=== PATIENT | female | born 2005 | race Caucasian/White ===

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

== ENCOUNTER 2023-02-16 00:11 | Emergency (ER) | payer OTHER, SELFPAY ==
[2023-02-16 00:14] VITALS: BP 124/70; PULSE 67; RESP 16; TEMP 36.7; O2SAT 100
--- NOTE | 2023-02-16 00:43 | XR_ITS ---
The [address] [address] Patient Name: RUPAL PARK MRN: [id number] date: 2005 Sex: F Assigned Patient Location: ER Current Patient Location: ED.MAIN Accession/Order Number: [id number] Exam Date: 02/16/2023 01:00 Report Date: 02/16/2023 01:24 At the request of: ANSLEY MARKER Procedure: XR hand LT min 3V EXAM: XR hand LT min 3V HISTORY: fall, thumb pain COMPARISON: None. TECHNIQUE: 3 views of the left hand were obtained. FINDINGS: No acute fracture or dislocation is seen. The joint spaces are preserved. XR/XR hand LT min 3V IMPRESSION: 1. No acute fracture or dislocation of the left hand is seen. If pain persists, repeat radiographs are recommended in 7-10 days. Electronically authenticated by: Bettye NIETO Date: 02/16/2023 01:24
--- NOTE | 2023-02-16 00:54 | ED_ITS ---
HPI - Extremity Injury (Upper) General Chief Complaint: Extremity Injury, Upper Stated Complaint: LT HAND INJURY Time Seen by Provider: 02/16/23 00:26 Source: patient Mode of arrival: walk-in History of Present Illness HPI narrative: This 17-year-old female who is 17 weeks and right-hand dominant presents for evaluation of left thumb pain. The patient thinks that she broke her left thumb. She tripped earlier today and fell onto her left hand. She states she has broken his thumb several times in the past. She has pain from the thenar eminence of the distal end of the thumb. She denies any numbness or tingling. She has some superficial abrasions on her 3rd and 4th fingers. She denies falling on her abdomen. She has no abdominal pain or vaginal bleeding. She has no neck or back pain. She took Tylenol prior to coming to the emergency department. Related Data Home Medications Medication Instructions Recorded Confirmed buspirone 5 mg tablet mg 02/16/23 cephalexin 500 mg capsule mg 02/16/23 dextroamphetamine-amphetamine 20 02/16/23 mg tablet folic acid 1 mg tablet 02/16/23 Allergies Allergy/AdvReac Type Severity Reaction Status Date / Time No Known Drug Allergies Allergy Verified 02/16/23 00:16 Review of Systems ROS Status of ROS 10 or more systems reviewed and unremarkable except as noted in history and below [facility] Social History Smoking status: Never smoker Exam Narrative Exam Narrative: Nurses note and vital signs reviewed and patient is not hypoxic. General: Thin female resting currently on the stretcher, no respiratory distress Skin: Superficial abrasions to the distal end of the left 4th and 5th fingers, no active bleeding Head: Normocephalic, atraumatic Eye: Normal conjunctiva, vision is grossly intact Neck: non-tender Cardiovascular: Regular Rate and Rhythm Respiratory: Patient is in no distress, no accessory muscle use, lungs are clear to auscultation, no wheezing, rales or rhonchi Back: non-tender, no CVA tenderness bilaterally to percussion. GI: Normal bowel sounds, no tenderness to palpation, no masses appreciated. No rebound, guarding, or rigidity noted. Musculoskeletal: Mild tenderness to the left thumb/thenar eminence to the MCP joint. Patient is able to flex and extend at the MCP and DIP joint. There is no abrasion or notable ecchymosis. Patient is able to approximate thumb and all fingers. There are superficial abrasions to the left 3rd and 4th fingers distally with no active bleeding and no bony tenderness or deformity noted Neurological: A&O x4, normal speech Psychiatric: Cooperative Constitutional Vital Signs, click to edit/add: Last Vital Signs Temp 98.0 F 02/16/23 00:14 Pulse 67 02/16/23 00:14 Resp 16 02/16/23 00:14 BP 124/70 02/16/23 00:14 Pulse Ox 100 02/16/23 00:14 O2 Del Method Room Air 02/16/23 00:14 Course Vital Signs Vital signs: Vital Signs Temperature 98.0 F 02/16/23 00:14 Pulse Rate 67 02/16/23 00:14 Respiratory Rate 16 02/16/23 00:14 Blood Pressure 124/70 02/16/23 00:14 Pulse Oximetry 100 02/16/23 00:14 Oxygen Delivery Method Room Air 02/16/23 00:14 Temperature 98.0 F 02/16/23 00:14 Pulse Rate 67 02/16/23 00:14 Respiratory Rate 16 02/16/23 00:14 Blood Pressure 124/70 02/16/23 00:14 Pulse Oximetry 100 02/16/23 00:14 Oxygen Delivery Method Room Air 02/16/23 00:14 MDM - Extremity Injury (Upper) MDM Narrative Medical decision making narrative: This 17-year-old female who is 17 weeks , who is right-hand dominant presents after she fell on the pavement outside onto her left hand. She has pain and tenderness in the left thumb with no bony deformity. She also has some superficial abrasions on her 3rd and 4th fingers. X-ray of the hand does not show any fracture or dislocation or foreign body. She had taken Tylenol prior to arrival was given an ice pack. She'll be placed in a thumb splint for comfort and discharged home at this time. She was encouraged to use Tylenol as needed for pain and ice. She did not fall on her abdomen has no re lated complaints. Discharge Plan Discharge Chief Complaint: Extremity Injury, Upper Clinical Impression: , Left thumb sprain Time of Disposition Decision: 01:49 Condition: Good Prescriptions / Home Meds: No Action buspirone 5 mg tablet cephalexin 500 mg capsule dextroamphetamine-amphetamine 20 mg tablet folic acid 1 mg tablet Instructions: Finger Sprain (ED) Additional Instructions: Use splint as needed for comfort. Use ice and tylenol as needed for pain. Stand Alone Forms: Portal Instructions Referrals: Physician,Non-Staff, MD [Primary Care Provider] - 1 week
== END 2023-02-16 02:00 | disposition home or self-care (01) ==
PROVIDERS: Emergency Provider Emergency Medicine
DX: O9A.212 Injury, poisoning and certain other consequences of external causes complicating pregnancy, second trimester (principal); S63.602A Unspecified sprain of left thumb, initial encounter; Z3A.17 17 weeks gestation of pregnancy; Z79.899 Other long term (current) drug therapy; W01.10XA Fall on same level from slipping, tripping and stumbling with subsequent striking against unspecified object, initial encounter
CPT/HCPCS: 73130; 99283

== ENCOUNTER 2023-09-30 14:39 | Emergency (ER) | payer OTHER, SELFPAY ==
--- OUTSIDE RECORDS SUMMARY | 2023-09-30 14:45 | XMS_ITS | CCD ---
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 Pending Sale To [facility] Comment on above: Order Comment: Name Collection Type:: Clean-Voided Midstream Performed By: #### A MNISURE-, CUU, ADDONUAPLUS, OBUDS #### [place] [address] [place] Color (U) Red Critically abnormal Yellow The Pending Sale To [facility] Comment on above: Order Comment: Name Collection Type:: Clean-Voided Midstream Performed By: #### A MNISURE-, CUU, ADDONUAPLUS, OBUDS #### [place] [address] [place] Glucose Ql (U) Normal Normal Normal The Pending Sale To [facility] Comment on above: Order Comment: Name Collection Type:: Clean-Voided Midstream Performed By: #### A MNISURE-, CUU, ADDONUAPLUS, OBUDS #### [place] [address] [place] Hyaline Casts,Urine 1-2 High 0-1 The Pending Sale To [facility] Comment on above: Order Comment: Name Collection Type:: Clean-Voided Midstream Performed By: #### A MNISURE-, CUU, ADDONUAPLUS, OBUDS #### [place] [address] [place] Ketones Ql (U) Negative Normal Negative The Pending Sale To [facility] Comment on above: Order Comment: Name Collection Type:: Clean-Voided Midstream Performed By: #### A MNISURE-, CUU, ADDONUAPLUS, OBUDS #### [place] [address] [place] Leukocyte esterase Test strip Ql (U) 3+ High Negative The Pending Sale To [facility] Comment on above: Order Comment: Name Collection Type:: Clean-Voided Midstream Performed By: #### A MNISURE-, CUU, ADDONUAPLUS, OBUDS #### [place] [address] [place] Nitrite,Urine Negative Normal Negative The Pending Sale To [facility] Comment on above: Order Comment: Name Collection Type:: Clean-Voided Midstream Performed By: #### A MNISURE-, CUU, ADDONUAPLUS, OBUDS #### [place] [id number] [place] Occult Blood,Urine 3+ High Negative The Pending Sale To [facility] Comment on above: Order Comment: Name Collection Type:: Clean-Voided Midstream Result Comment: PERF ORMED BY: [place] [address] PATHOLOGIST SOLE BUFFER JAYDON WEBER M.D. Performed By: #### A MNISURE-, CUU, ADDONUAPLUS, OBUDS #### [address] Other Casts,Urine None Seen Normal None Seen The Pending Sale To [facility] Comment on above: Order Comment: Name Collection Type:: Clean-Voided Midstream Result Comment: PERF ORMED BY: [place] [address] PATHOLOGIST SOLE BUFFER JAYDON WEBER M.D. Performed By: #### A MNISURE-, CUU, ADDONUAPLUS, OBUDS #### [address] pH (U) 6.5 [pH] Normal 5.0-9.0 The Pending Sale To [facility] Comment on above: Order Comment: Name Collection Type:: Clean-Voided Midstream Performed By: #### A MNISURE-, CUU, ADDONUAPLUS, OBUDS #### [address] Protein (U) [Mass/Vol] 300 mg/dL High Negative [facility] Comment on above: Order Comment: Name Collection Type:: Clean-Voided Midstream Performed By: #### A MNISURE-, CUU, ADDONUAPLUS, OBUDS #### [address] RBC,Urine Innumerable High 0-4 The Pending Sale To [facility] Comment on above: Order Comment: Name Collection Type:: Clean-Voided Midstream Performed By: #### A MNISURE-, CUU, ADDONUAPLUS, OBUDS #### [address] Specificy [place],Urine 1.028 Normal 1.001-1.030 The Pending Sale To [facility] Comment on above: Order Comment: Name Collection Type:: Clean-Voided Midstream Performed By: #### A MNISURE-, CUU, ADDONUAPLUS, OBUDS #### [address] Squamous Epithelial Cell,Urine 0-1 Normal 0-2 The Pending Sale To [facility] Comment on above: Order Comment: Name Collection Type:: Clean-Voided Midstream Performed By: #### A MNISURE-, CUU, ADDONUAPLUS, OBUDS #### [address] Urobilinogen,Urine Normal Normal Normal The Pending Sale To [facility] Comment on above: Order Comment: Name Collection Type:: Clean-Voided Midstream Performed By: #### A MNISURE-, CUU, ADDONUAPLUS, OBUDS #### [address] WBC,Urine Innumerable High 0-4 The Pending Sale To [facility] Comment on above: Order Comment: Name Collection Type:: Clean-Voided Midstream Performed By: #### A MNISURE-, CUU, ADDONUAPLUS, OBUDS #### [address] Erythrocyte distribution wid th [Ratio] by Automated countOrdered By: Akin Lopez on 07-28-2023 Erythrocyte distribution width (RBC) [Ratio] 14.1 % Normal 11.9-15.3 [facility] Comment on above: Performed By: #### A MNISURE-, CUU, ADDONUAPLUS, OBUDS #### [address] Erythrocytes [#/volume] in B lood by Automated countOrdered By: Akin Lopez on 07-28-2023 RBC (Bld) [#/Vol] 3.65 10*6/uL Normal 3.60-5.00 [facility] Comment on above: Performed By: #### A MNISURE-, CUU, ADDONUAPLUS, OBUDS #### [facility] [address] Glucose [Mass/volume] in Ser um or PlasmaOrdered By: Akin Lopez on 07-28-2023 Glucose [Mass/Vol] 86 mg/dL Normal 70-100 [facility] Comment on above: ADA recommended refe rence rangeRandom Glucose Reference Range is dependent on time and content of last meal. Glucose of more than 200 mg/dL in a nonstressed, ambulatory subject supports the diagnosis of Diabetes Mellitus. Result Comment: [place] om Glucose Reference Range is dependent on time and content of last meal. Glucose of more than 200 mg/dL in a nonstressed, ambulatory subject supports the diagnosis of Diabetes Mellitus. ADA recommended reference range Performed By: #### A MNISURE-, CUU, ADDONUAPLUS, OBUDS #### [address] Hematocrit [Volume Fraction] of Blood by Automated countOrdered By: Akin Lopez on 07-28-2023 Hematocrit (Bld) [Volume fraction] 31.8 % Low 34.0-46.4 [facility] Comment on above: Performed By: #### A MNISURE-, CUU, ADDONUAPLUS, OBUDS #### [address] Hemoglobin [Mass/volume] in BloodOrdered By: Akin Lopez on 07-28-2023 Hemoglobin (Bld) [Mass/Vol] 10.6 g/dL Low 11.8-15.4 [facility] Comment on above: Performed By: #### A MNISURE-, CUU, ADDONUAPLUS, OBUDS #### [place] [address] [place] Hepatic Panelon 07-28-2023 Albumin [Mass/Vol] 3.2 g/dL Low 3.5-5.7 The Pending Sale To [facility] Comment on above: Performed By: #### A MNISURE-, CUU, ADDONUAPLUS, OBUDS #### [place] [address] [place] Bilirubin,Indirect 0.2 mg/dL Normal The Pending Sale To [facility] Comment on above: Performed By: #### A MICHELLERE- CUUCARMEN OBUDS #### [facility] [address] [place] [address] Bilirubin.indirect [Mass/Vol] 0.00 mg/dL Low 0.03-0.18 The Pending Sale To [facility] Comment on above: Result Comment: If t he DBIL is less than 0.1, IBIL is not able to be calculated. Performed By: #### A MNISURE-, CUU, ADDONROHITH, OBUDS #### [facility] [address] [place] [address] Ketones Auto test strip (U) [Mass/Vol]Ordered By: Akin Lopez on 07-28-2023 Ketones (U) [Mass/Vol] Negative Negative [facility] Leukocytes [#/volume] correc oren for nucleated erythrocytes in Blood by Automated counOrdered By: Akin Lopez on 07-28-2023 WBC corrected for nucl RBC Auto (Bld) [#/Vol] 9.5 10*3/uL 3.8-11.6 [facility] Leukocytes [#/volume] in Blo od by Automated countOrdered By: Akin Lopez on 07-28-2023 WBC (Bld) [#/Vol] 9.5 10*3/uL Normal 3.8-11.6 [facility] Comment on above: Performed By: #### A MICHELLERE- CUU, CARMEN, OBUDS #### [facility] [address] [place] [address] Lipase [Enzymatic activity/v olume] in Serum or PlasmaOrdered By: Akin Lopez on 07-28-2023 Lipase [Catalytic activity/Vol] 11.0 U/L Normal 11.0-82.0 [facility] Comment on above: Result Comment: PERF ORMED BY: [place] [address] PATHOLOGIST SOLE BUFFER JIANLAN SUN M.D. Performed By: #### A MNISURE-, CUU, ADDONUAPLUS, OBUDS #### [address] Lymphocytes [#/volume] in Bl ood by Automated countOrdered By: Akin Lopez on 07-28-2023 Lymphocytes (Bld) [#/Vol] 2.3 10*3/uL Normal 1.00-4.8 [facility] Comment on above: Performed By: #### A MNISURE-, CUU, ADDONUAPLUS, OBUDS #### [address] Lymphocytes/100 leukocytes i n Blood by Automated countOrdered By: Akin Lopez on 07-28-2023 Lymphocytes/100 WBC (Bld) 23.7 % Normal . [facility] Comment on above: Performed By: #### A MNISURE-, CUU, ADDONUAPLUS, OBUDS #### [address] MCH [Entitic mass] by Automa oren countOrdered By: Akin Lopez on 07-28-2023 MCH (RBC) [Entitic mass] 28.9 pg Normal 24.7-34.3 [facility] Comment on above: Performed By: #### A MNISURE-, CUU, ADDONUAPLUS, OBUDS #### [address] MCHC Auto (RBC) [Mass/Vol]Or dered By: Akin Lopez on 07-28-2023 MCHC (RBC) [Mass/Vol] 33.2 g/dL 32.0-35.0 [facility] MCV [Entitic volume] by Auto mated countOrdered By: Akin Lopez on 07-28-2023 MCV (RBC) [Entitic vol] 87.2 fL Normal 80-100 [facility] Comment on above: Performed By: #### A MNISURE-, CUU, ADDONUAPLUS, OBUDS #### [address] Monocyte distribution width [Entitic volume] in Blood by AutomatedOrdered By: Akin Lopez on 07-28-2023 Monocyte distribution width Auto (Bld) [Entitic vol] 17.82 % 0.00-20.00 [facility] Neutrophils [#/volume] in Bl ood by Automated countOrdered By: Akin Lopez on 07-28-2023 Neutrophils (Bld) [#/Vol] 6.4 10*3/uL Normal 1.8-7.7 [facility] Comment on above: Performed By: #### A MNISURE-, CUU, ADDONUAPLUS, OBUDS #### [facility] [address] Nitrite Test strip Ql (U)Ord ered By: Akin Lopez on 07-28-2023 Nitrite Ql (U) Negative Negative [facility] No Panel InformationOrdered By: Akin Lopez on 07-28-2023 Estimated GFR (CKD-EPI) > 60.0 mL/Min [facility] Creatinine Clearance (Chem 171.94 [facility] Nucleated erythrocytes [Pres ence] in Blood by Automated countOrdered By: Akin Lopez on 07-28-2023 Nucleated RBC Auto Ql (Bld) 0.0 /100{WBC} 0-0.5 [facility] Platelet mean volume [Entiti c volume] in Blood by Automated countOrdered By: Akin Lopez on 07-28-2023 Platelet mean volume (Bld) [Entitic vol] 10.1 fL Normal 6.3-10.7 [facility] Comment on above: Performed By: #### A MNISURE-, CUU, ADDONUAPLUS, OBUDS #### [facility] [address] [place] [address] [place] Platelets [#/volume] in Bloo d by Automated countOrdered By: Akin Lopez on 07-28-2023 Platelets (Bld) [#/Vol] 206 10*3/uL Normal 150-450 [facility] Comment on above: Performed By: #### A MNISURE-, CUU, ADDONUAPLUS, OBUDS #### [facility] [address] Potassium [Moles/volume] in Serum or PlasmaOrdered By: Akin Lopez on 07-28-2023 Potassium [Moles/Vol] 3.8 mmol/L Normal 3.5-5.1 [facility] Comment on above: Performed By: #### A NORMA ORO ADDONUAPLUS OBUDS #### [facility] [address] Protein Auto test strip (U) [Mass/Vol]Ordered By: Akin Lopez on 07-28-2023 Protein (U) [Mass/Vol] 300 mg/dL Negative [facility] Protein [Mass/volume] in Ser um or PlasmaOrdered By: Akin Lopez on 07-28-2023 Protein [Mass/Vol] 6.1 g/dL Low 6.4-8.9 [facility] Comment on above: Performed By: #### A HUY OROUCARMEN OBUDS #### [facility] [address] [place] [address] Serum globulin measurement b y calculation (mass/volume)Ordered By: Akin Lopez on 07-28-2023 Globulin (S) [Mass/Vol] 2.9 g/dL Normal [facility] Comment on above: Performed By: #### A NORMA ORO ADDONUAPLUS OBUDS #### [facility] [address] [place] [address] Serum or plasma albumin/glob ulin mass ratioOrdered By: Akin Lopez on 07-28-2023 Albumin/Globulin [Mass ratio] 1.1 {ratio} Normal [facility] Comment on above: Performed By: #### A NORMA ORO ADDONUAPLUS OBUDS #### [facility] [address] [place] [address] Serum or plasma anion gap de terminationOrdered By: Akin Lopez on 07-28-2023 Anion gap [Moles/Vol] 2.2 mmol/L Low 6.0-15.0 [facility] Comment on above: Performed By: #### A NORMA ORO ADDONUAPLUS, OBUDS #### [facility] [address] [place] [address] Serum or plasma non-glucuron idated bilirubin measurement (mass/volume)Ordered By: Akin Lopez on 07-28-2023 Bilirubin.indirect [Mass/Vol] 0.2 mg/dL [facility] Sodium [Moles/volume] in Ser um or PlasmaOrdered By: Akin Lopez on 07-28-2023 Sodium [Moles/Vol] 137 mmol/L Normal 136-145 [facility] Comment on above: Performed By: #### A NORMA ORO ADDONUAPLUS OBUDS #### [facility] [address] [place] [address] Specific gravity Auto test s trip (U) [Rel density]Ordered By: Akin Lopez on 07-28-2023 Specific gravity (U) [Rel density] 1.028 1.001-1.030 [facility] Squamous epithelial cells de tection in urine sediment by light microscopyOrdered By: Akin Lopez on 07-28-2023 Epithelial cells.squamous LM Ql (Urine sed) 0-1 [HPF] 0-2 [facility] Urea nitrogen [Mass/volume] in Serum or PlasmaOrdered By: Akin Lopez on 07-28-2023 Urea nitrogen [Mass/Vol] 13 mg/dL Normal 7-25 [facility] Comment on above: Performed By: #### A NORMA ORO ADDONUAPLUS OBUDS #### [facility] [address] [place] [address] Urine Cultureon 07-28-2023 Bacteria identified Cx Nom (U) <9,000 colonies/ml mixed bacterial skin contaminants 2 Days PERFORMED BY: [place] [address] PATHOLOGIST SOLE BUFFER JAYDON WEBER M.D. Normal The Pending Sale To [facility] Comment on above: Performed By: #### A NORMA ORO, ADDONUAPLUS, OBUDS #### [facility] [address] Urine bacteria detection by automated methodOrdered By: Akin Lopez on 07-28-2023 Bacteria Auto Ql (U) None seen None Seen [facility] Urine clarity by refractomet ry automatedOrdered By: Akin Lopez on 07-28-2023 Clarity Refractometry automated (U) Cloudy Clear [facility] Urine glucose measurement by automated test strip (mass/volume)Ordered By: Akin Lopez on 07-28-2023 Glucose Auto test strip (U) [Mass/Vol] Normal mg/dL Normal [facility] Urine hemoglobin detection b y automated test stripOrdered By: Akin Lopez on 07-28-2023 Hemoglobin Auto test strip Ql (U) 3+ Negative [facility] Urine leukocyte esterase det ection by automated test stripOrdered By: Akin Lopez on 07-28-2023 Leukocyte esterase Auto test strip Ql (U) 3+ Negative [facility] Urobilinogen Auto test strip (U) [Mass/Vol]Ordered By: Akin Lopez on 07-28-2023 Urobilinogen (U) [Mass/Vol] Normal mg/dL Normal [facility] pH Auto test strip (U)Ordere d By: Akin Lopez on 07-28-2023 pH (U) 6.5 [pH] 5.0-9.0 [facility] Basophils Auto (Bld) [#/Vol] Ordered By: Chuck Monroe on 07-24-2023 Basophils (Bld) [#/Vol] 0.0 10*3/uL 0.0-0.2 [facility] Basophils/100 WBC Auto (Bld) Ordered By: Chuck Monroe on 07-24-2023 Basophils/100 WBC (Bld) 0.3 % . [facility] Eosinophils Auto (Bld) [#/Vo l]Ordered By: Chuck Monroe on 07-24-2023 Eosinophils (Bld) [#/Vol] 0.1 10*3/uL 0.0-0.45 [facility] Eosinophils/100 WBC Auto (Bl d)Ordered By: Chuck Monroe on 07-24-2023 Eosinophils/100 WBC (Bld) 0.6 % . [facility] Erythrocyte distribution wid th Auto (RBC) [Ratio]Ordered By: Chuck Monroe on 07-24-2023 Erythrocyte distribution width (RBC) [Ratio] 14.2 % 11.9-15.3 [facility] Hematocrit Auto (Bld) [Volum e fraction]Ordered By: Chuck Monroe on 07-24-2023 Hematocrit (Bld) [Volume fraction] 34.4 % 34.0-46.4 [facility] Hemoglobin [Mass/volume] in BloodOrdered By: Chuck Monroe on 07-24-2023 Hemoglobin (Bld) [Mass/Vol] 11.4 g/dL 11.8-15.4 [facility] Leukocytes [#/volume] correc oren for nucleated erythrocytes in Blood by Automated counOrdered By: Chuck Monroe on 07-24-2023 WBC corrected for nucl RBC Auto (Bld) [#/Vol] 12.4 10*3/uL 3.8-11.6 [facility] Lymphocytes Auto (Bld) [#/Vo l]Ordered By: Chuck Monroe on 07-24-2023 Lymphocytes (Bld) [#/Vol] 2.7 10*3/uL 1.00-4.8 [facility] Lymphocytes/100 WBC Auto (Bl d)Ordered By: Chuck Monroe on 07-24-2023 Lymphocytes/100 WBC (Bld) 21.6 % . [facility] MCH Auto (RBC) [Entitic mass ]Ordered By: Chuck Monroe on 07-24-2023 MCH (RBC) [Entitic mass] 28.8 pg 24.7-34.3 [facility] MCHC Auto (RBC) [Mass/Vol]Or dered By: Chuck Monroe on 07-24-2023 MCHC (RBC) [Mass/Vol] 33.3 g/dL 32.0-35.0 [facility] MCV Auto (RBC) [Entitic vol] Ordered By: Chuck Monroe on 07-24-2023 MCV (RBC) [Entitic vol] 86.6 fL 80-100 [facility] Monocytes Auto (Bld) [#/Vol] Ordered By: Chuck Monroe on 07-24-2023 Monocytes (Bld) [#/Vol] 0.8 10*3/uL 0.0-0.8 [facility] Monocytes/100 WBC Auto (Bld) Ordered By: Chuck Monroe on 07-24-2023 Monocytes/100 WBC (Bld) 6.5 % . [facility] Neutrophils Auto (Bld) [#/Vo l]Ordered By: Chuck Monroe on 07-24-2023 Neutrophils (Bld) [#/Vol] 8.8 10*3/uL 1.8-7.7 [facility] Neutrophils/100 WBC Auto (Bl d)Ordered By: Chuck Monroe on 07-24-2023 Neutrophils/100 WBC (Bld) 71.0 % . [facility] Nucleated erythrocytes [Pres ence] in Blood by Automated countOrdered By: Chuck Monroe on 07-24-2023 Nucleated RBC Auto Ql (Bld) 0.1 /100{WBC} 0-0.5 [facility] Platelet adequacy [Presence] in Blood by Light microscopyOrdered By: Chuck Monroe on 07-24-2023 Platelets LM Ql (Bld) Normal Normal [facility] Platelet mean volume Auto (B ld) [Entitic vol]Ordered By: Chuck Monroe on 07-24-2023 Platelet mean volume (Bld) [Entitic vol] 11.3 fL 6.3-10.7 [facility] Platelet morphology finding [Identifier] in BloodOrdered By: Chuck Monroe on 07-24-2023 Platelet morphology finding Nom (Bld) N/A [facility] Platelets Auto (Bld) [#/Vol] Ordered By: Chuck Monroe on 07-24-2023 Platelets (Bld) [#/Vol] 169 10*3/uL 150-450 [facility] Platelets Large [Presence] i n Blood by Light microscopyOrdered By: Chuck Monroe on 07-24-2023 Platelets Large LM Ql (Bld) Slight [facility] RBC Auto (Bld) [#/Vol]Ordere d By: Chuck Monroe on 07-24-2023 RBC (Bld) [#/Vol] 3.97 10*6/uL 3.60-5.00 [facility] RBC morphologyOrdered By: Kamilah Monroe on 07-24-2023 RBC morphology finding Nom (Bld) Normal Normal [facility] Scan and CBCon 07-24-2023 Basophils (Bld) [#/Vol] 0.0 10*3/uL Normal 0.0-0.2 The Pending Sale To [facility] Comment on above: Order Comment: Comme nt Draw at 630 am Result Comment: PERF ORMED BY: [place] [address] PATHOLOGIST SOLE BUFFER JAYDON WEBER M.D. Performed By: #### O BUDS, CUU, ADDONUAPLUS #### [address] Basophils/100 WBC (Bld) 0.3 % Normal . T norma Pending Sale To [facility] Comment on above: Order Comment: Comme nt Draw at 630 am Performed By: #### O BUDS, CUU, ADDONUAPLUS #### [address] Eosinophils (Bld) [#/Vol] 0.1 10*3/uL Normal 0.0-0.45 The Pending Sale To [facility] Comment on above: Order Comment: Comme nt Draw at 630 am Performed By: #### O BUDS, CUU, ADDONUAPLUS #### [address] Eosinophils/100 WBC (Bld) 0.6 % Normal . The Pending Sale To [facility] Comment on above: Order Comment: Comme nt Draw at 630 am Performed By: #### O BUDS, CUU, ADDONUAPLUS #### [address] Erythrocyte distribution width (RBC) [Ratio] 14.2 % Normal 11.9-15.3 The Pending Sale To [facility] Comment on above: Order Comment: Comme nt Draw at 630 am Performed By: #### O BUDS, CUU, ADDONUAPLUS #### [address] Hematocrit (Bld) [Volume fraction] 34.4 % Normal 34.0-46.4 The Pending Sale To [facility] Comment on above: Order Comment: Comme nt Draw at 630 am Performed By: #### O BUDS, CUU, ADDONUAPLUS #### [address] Hemoglobin (Bld) [Mass/Vol] 11.4 g/dL Low 11.8-15.4 The Pending Sale To [facility] Comment on above: Order Comment: Comme nt Draw at 630 am Performed By: #### O BUDS, CUU, ADDONUAPLUS #### [address] Large Platelets Slight Normal The Pending Sale To [facility] Comment on above: Order Comment: Comme nt Draw at 630 am Result Comment: PERF ORMED BY: [place] [address] PATHOLOGIST SOLE BUFFER JAYDON WEBER M.D. Performed By: #### O BUDS, CUU, ADDONUAPLUS #### [address] Lymphocytes (Bld) [#/Vol] 2.7 10*3/uL Normal 1.00-4.8 The Pending Sale To [facility] Comment on above: Order Comment: Comme nt Draw at 630 am Performed By: #### O BUDS, CUU, ADDONUAPLUS #### [address] Lymphocytes/100 WBC (Bld) 21.6 % Normal . The Pending Sale To [facility] Comment on above: Order Comment: Comme nt Draw at 630 am Performed By: #### O BUDS, CUU, ADDONUAPLUS #### [address] MCH (RBC) [Entitic mass] 28.8 pg Normal 24.7-34.3 The Pending Sale To [facility] Comment on above: Order Comment: Comme nt Draw at 630 am Performed By: #### O BUDS, CUU, ADDONUAPLUS #### [address] MCV (RBC) [Entitic vol] 86.6 fL Normal 80-100 T he Pending Sale To [facility] Comment on above: Order Comment: Comme nt Draw at 630 am Performed By: #### O BUDS, CUU, ADDONUAPLUS #### [address] Mean Corpuscular HGB Conc 33.3 g/dL Normal 32.0-35.0 The Pending Sale To [facility] Comment on above: Order Comment: Comme nt Draw at 630 am Performed By: #### O BUDS, CUU, ADDONUAPLUS #### [address] Monocytes (Bld) [#/Vol] 0.8 10*3/uL Normal 0.0-0.8 The Pending Sale To [facility] Comment on above: Order Comment: Comme nt Draw at 630 am Performed By: #### O BUDS, CUU, ADDONUAPLUS #### [address] Monocytes/100 WBC (Bld) 6.5 % Normal . T he Pending Sale To [facility] Comment on above: Order Comment: Comme nt Draw at 630 am Performed By: #### O BUDS, CUU, ADDONUAPLUS #### [place] [address] [place] Neutrophils (Bld) [#/Vol] 8.8 10*3/uL High 1.8-7.7 The Pending Sale To [facility] Comment on above: Order Comment: Comme nt Draw at 630 am Performed By: #### O BUDS, CUU, ADDONUAPLUS #### [address] Neutrophils/100 WBC (Bld) 71.0 % Normal . The Pending Sale To [facility] Comment on above: Order Comment: Comme nt Draw at 630 am Performed By: #### O BUDS, CUU, ADDONUAPLUS #### [address] NRBC% 0.1 /100{WBC} Normal 0-0.5 The Pending Sale To [facility] Comment on above: Order Comment: Comme nt Draw at 630 am Performed By: #### O BUDS, CUU, ADDONUAPLUS #### [address] Platelet Estimate Normal Normal Normal The Pending Sale To [facility] Comment on above: Order Comment: Comme nt Draw at 630 am Performed By: #### O BUDS, CUU, ADDONUAPLUS #### [address] Platelet mean volume (Bld) [Entitic vol] 11.3 fL High 6.3-10.7 The Pending [facility] Comment on above: Order Comment: Comme nt Draw at 630 am Performed By: #### O BUDS, CUU, ADDONUAPLUS #### [address] Platelets (Bld) [#/Vol] 169 10*3/uL Normal 150-450 The Pending [facility] Comment on above: Order Comment: Comme nt Draw at 630 am Performed By: #### O BUDS, CUU, ADDONUAPLUS #### [address] RBC (Bld) [#/Vol] 3.97 10*6/uL Normal 3.60-5.00 The Pending [facility] Comment on above: Order Comment: Comme nt Draw at 630 am Performed By: #### O BUDS, CUU, ADDONUAPLUS #### [address] RBC morphology finding Nom (Bld) Normal Normal Normal The Pending [facility] Comment on above: Order Comment: Comme nt Draw at 630 am Performed By: #### O BUDS, CUU, ADDONUAPLUS #### [address] WBC (Bld) [#/Vol] 12.4 10*3/uL High 3.8-11.6 The Pending [facility] Comment on above: Order Comment: Comme nt Draw at 630 am Performed By: #### O BUDS, CUU, ADDONUAPLUS #### [address] WBC Auto (Bld) [#/Vol]Ordere d By: Chuck Monroe on 07-24-2023 WBC (Bld) [#/Vol] 12.4 10*3/uL 3.8-11.6 [facility] ABO/RH Typeon 07-23-2023 ABO and Rh group Nom (Bld) Blood group A Rh(D) positive Normal The Pending [facility] Comment on above: Result Comment: PERF ORMED BY: [facility] [address] [place] [address] PATHOLOGIST SOLE BUFFER JAYDON WEBER M.D. Amphetamine Screen Ql (U)Ord ered By: JITENDRA Bales on 07-23-2023 Amphetamines Ql (U) Negative Negative [facility] Automated erythrocytes count in urine sediment (number/area)Ordered By: JITENDRA Bales on 07-23-2023 RBC Auto (Urine sed) [#/Area] 1-2 [HPF] 0-4 [facility] Automated leukocytes count i n urine sediment (number/area)Ordered By: JITENDRA Bales on 07-23-2023 WBC Auto (Urine sed) [#/Area] 5-9 [HPF] 0-4 [facility] Barbiturates [Presence] in U rine by Screen methodOrdered By: JITENDRA Bales on 07-23-2023 Barbiturates Screen Ql (U) Negative Negative [facility] Benzodiazepines Screen Ql (U )Ordered By: JITENDRA Bales on 07-23-2023 Benzodiazepines Ql (U) Negative Negative [facility] Benzoylecgonine [Presence] i n Urine by Screen methodOrdered By: JITENDRA Bales on 07-23-2023 Benzoylecgonine Screen Ql (U) Negative Negative [facility] Bilirubin Test strip Ql (U)O rdered By: JITENDRA Bales on 07-23-2023 Bilirubin Ql (U) Negative Negative [facility] Color Auto (U)Ordered By: MD HOWARD Bales on 07-23-2023 Color (U) Yellow Yellow [facility] Complete Blood Count Auto Di ffon 07-23-2023 Basophils (Bld) [#/Vol] 0.1 10*3/uL Normal 0.0-0.2 The Pending [facility] Comment on above: Result Comment: PERF ORMED BY: [place] [address] PATHOLOGIST SOLE BUFFER JAYDON WEBER M.D. Performed By: #### C USTB #### [address] Basophils/100 WBC (Bld) 1.0 % Normal . T he Pending Sale To [facility] Comment on above: Performed By: #### C USTB #### [address] Eosinophils (Bld) [#/Vol] 0.1 10*3/uL Normal 0.0-0.45 The Pending [facility] Comment on above: Performed By: #### C USTB #### [address] Eosinophils/100 WBC (Bld) 1.1 % Normal . The Pending [facility] Comment on above: Performed By: #### C USTB #### [address] Erythrocyte distribution width (RBC) [Ratio] 14.2 % Normal 11.9-15.3 The Pending [facility] Comment on above: Performed By: #### C USTB #### [address] Hematocrit (Bld) [Volume fraction] 37.9 % Normal 34.0-46.4 The Pending [facility] Comment on above: Performed By: #### C USTB #### [address] Hemoglobin (Bld) [Mass/Vol] 12.6 g/dL Normal 11.8-15.4 The Pending [facility] Comment on above: Performed By: #### C USTB #### [address] Lymphocytes (Bld) [#/Vol] 2.8 10*3/uL Normal 1.00-4.8 The Pending [facility] Comment on above: Performed By: #### C USTB #### [address] Lymphocytes/100 WBC (Bld) 26.1 % Normal . The Pending [facility] Comment on above: Performed By: #### C USTB #### [address] MCH (RBC) [Entitic mass] 28.6 pg Normal 24.7-34.3 The Pending [facility] Comment on above: Performed By: #### C USTB #### [address] MCV (RBC) [Entitic vol] 86.5 fL Normal 80-100 [facility] Comment on above: Performed By: #### C USTB #### [address] Mean Corpuscular HGB Conc 33.1 g/dL Normal 32.0-35.0 The Pending [facility] Comment on above: Performed By: #### C USTB #### [address] Monocytes (Bld) [#/Vol] 0.7 10*3/uL Normal 0.0-0.8 The Pending [facility] Comment on above: Performed By: #### C USTB #### [address] Monocytes/100 WBC (Bld) 6.8 % Normal . [facility] Comment on above: Performed By: #### C USTB #### [address] Neutrophils (Bld) [#/Vol] 7.0 10*3/uL Normal 1.8-7.7 The Pending [facility] Comment on above: Performed By: #### C USTB #### [address] Neutrophils/100 WBC (Bld) 65.0 % Normal . The Pending [facility] Comment on above: Performed By: #### C USTB #### [address] NRBC% 0.1 /100{WBC} Normal 0-0.5 The Pending [facility] Comment on above: Performed By: #### C USTB #### [facility] [address] Platelet mean volume (Bld) [Entitic vol] 11.2 fL High 6.3-10.7 The Pending [facility] To [facility] Comment on above: Performed By: #### C USTB #### [facility] [address] [place] [address] [place] Platelets (Bld) [#/Vol] 203 10*3/uL Normal 150-450 The Pending [facility] To [facility] Comment on above: Performed By: #### C USTB #### [address] RBC (Bld) [#/Vol] 4.39 10*6/uL Normal 3.60-5.00 The Pending [facility] To [facility] Comment on above: Performed By: #### C USTB #### [address] WBC (Bld) [#/Vol] 10.7 10*3/uL Normal 3.8-11.6 The Pending [facility] Comment on above: Performed By: #### C USTB #### [address] Creatinine [Mass/volume] in UrineOrdered By: JITENDRA Bales on 07-23-2023 Creatinine (U) [Mass/Vol] 21.0 mg/dL [facility] Comment on above: No reference range e stablished Dipstick and Microscopicon 0 07-23-2023 Appearance (U) Clear Normal Clear The Pending [facility] Comment on above: Order Comment: Name Collection Type:: Clean-Voided Midstream Performed By: #### C USTB #### [place] [address] [place] Bacteria,Urine Rare High None Seen The Pending [facility] Comment on above: Order Comment: Name Collection Type:: Clean-Voided Midstream Performed By: #### C USTB #### [place] [address] [place] Bilirubin,Urine Negative Normal Negative The Pending [facility] Comment on above: Order Comment: Name Collection Type:: Clean-Voided Midstream Performed By: #### C USTB #### [place] [address] [place] Color (U) Yellow Normal Yellow The Pending [facility] Comment on above: Order Comment: Name Collection Type:: Clean-Voided Midstream Performed By: #### C USTB #### [place] [address] [place] Glucose Ql (U) Normal Normal Normal The Pending [facility] Comment on above: Order Comment: Name Collection Type:: Clean-Voided Midstream Performed By: #### C USTB #### [place] [address] [place] Hyaline Casts,Urine None Seen Normal 0-8 The Pending [facility] To [facility] Comment on above: Order Comment: Name Collection Type:: Clean-Voided Midstream Result Comment: PERF ORMED BY: [place] [address] PATHOLOGIST SOLE BUFFER JAYDON WEBER M.D. Performed By: #### C USTB #### [place] [address] [place] Ketones Ql (U) Negative Normal Negative The [facility]ending [facility] Comment on above: Order Comment: Name Collection Type:: Clean-Voided Midstream Performed By: #### C USTB #### [place] [address] [place] Leukocyte esterase Test strip Ql (U) Negative Normal Negative The Pending [facility] Comment on above: Order Comment: Name Collection Type:: Clean-Voided Midstream Performed By: #### C USTB #### [place] [address] [place] Nitrite,Urine Negative Normal Negative The Pending [facility] Comment on above: Order Comment: Name Collection Type:: Clean-Voided Midstream Performed By: #### C USTB #### [place] [address] [place] Occult Blood,Urine Negative Normal Negative The Pending [facility] To [facility] Comment on above: Order Comment: Name Collection Type:: Clean-Voided Midstream Result Comment: PERF ORMED BY: [place] [address] PATHOLOGIST SOLE BUFFER JAYDON WEBER M.D. Performed By: #### C USTB #### [address] pH (U) 7.0 [pH] Normal 5.0-9.0 The Pending [facility] Comment on above: Order Comment: Name Collection Type:: Clean-Voided Midstream Performed By: #### C USTB #### [address] Protein (U) [Mass/Vol] 300 mg/dL High Negative Th e Pending Sale To [facility] Comment on above: Order Comment: Name Collection Type:: Clean-Voided Midstream Performed By: #### C USTB #### [place] [address] [place] RBC,Urine 1-2 Normal 0-4 The Pending Sale To [facility] Comment on above: Order Comment: Name Collection Type:: Clean-Voided Midstream Performed By: #### C USTB #### [place] [address] [place] Specificy [place],Urine 1.009 Normal 1.001-1.030 The Pending Sale To [facility] Comment on above: Order Comment: Name Collection Type:: Clean-Voided Midstream Performed By: #### C USTB #### [place] [address] [place] Squamous Epithelial Cell,Urine 3-4 High 0-2 The Pending [facility] Comment on above: Order Comment: Name Collection Type:: Clean-Voided Midstream Performed By: #### C USTB #### [place] [address] [place] Urobilinogen,Urine Normal Normal Normal The Pending [facility] Comment on above: Order Comment: Name Collection Type:: Clean-Voided Midstream Performed By: #### C USTB #### [place] [address] [place] WBC,Urine 5-9 High 0-4 The Pending [facility] Comment on above: Order Comment: Name Collection Type:: Clean-Voided Midstream Performed By: #### C USTB #### [facility] [address] Ketones Auto test strip (U) [Mass/Vol]Ordered By: JITENDRA Bales on 07-23-2023 Ketones (U) [Mass/Vol] Negative Negative Fi [facility] - UrinalysisOrder ed By: JITENDRA Bales on 07-23-2023 Hyaline casts LM Ql (Urine sed) None seen [LPF] 0-8 [facility] Nitrite Test strip Ql (U)Ord ered By: JITENDRA Bales on 07-23-2023 Nitrite Ql (U) Negative Negative [facility] OB Urine Drug Screen (NO THC )on 07-23-2023 Amphetamine Screen,Urine Negative Normal Negative The Pending [facility] To [facility] Comment on above: Performed By: #### C USTB #### [place] [address] [place] Barbiturate Screen,Urine Negative Normal Negative The Pending [facility] Comment on above: Performed By: #### C USTB #### [place] [address] [place] Benzodiazepines Screen,Urine Negative Normal Negative The Pending [facility] To [facility] Comment on above: Performed By: #### C USTB #### [place] [address] [place] Cocaine Screen,Urine Negative Normal Negative The Pending [facility] Comment on above: Performed By: #### C USTB #### [place] [address] [place] Opiate Screen,Urine Negative Normal Negative The Pending [facility] Comment on above: Performed By: #### C USTB #### [place] [address] [place] Phencyclidine Screen, Urine Negative Normal Negative The Pending [facility] Comment on above: Result Comment: Thes e are unconfirmed results and should not be used for legal purposes. Drug Cut-Off Concentration: AMPH 1000 ng/mL LEDA 200 ng/mL ERIC 200 ng/mL COCM 300 ng/mL OP 300 ng/mL PCP 25 ng/mL PERFORMED BY: [place] [address] PATHOLOGIST SOLE BUFFER JAYDON WEBER M.D. Performed By: #### C USTB #### [place] [id number] [facility] Opiates [Presence] in Urine by Screen methodOrdered By: JITENDRA Bales on 07-23-2023 Opiates Screen Ql (U) Negative Negative [facility] Phencyclidine Screen Ql (U)O rdered By: JITENDRA Bales on 07-23-2023 Phencyclidine Ql (U) Negative Negative [facility] Comment on above: These are unconfirme d results and should not be used for legal purposes. Drug Cut-Off Concentration: AMPH 1000 ng/mL LEDA 200 ng/mL ERIC 200 ng/mL COCM 300 ng/mL OP 300 ng/mL PCP 25 ng/mL Protein Auto test strip (U) [Mass/Vol]Ordered By: JITENDRA Bales on 07-23-2023 Protein (U) [Mass/Vol] 300 mg/dL Negative [facility] Protein Creat Ratio Ur Rando mon 07-23-2023 Creatinine, Urine (Random) 21.0 mg/dL Normal The Pending [facility] Comment on above: Result Comment: No r eference range established Performed By: #### O NORMA CALVILLO, ADDONUAPLUS #### [facility] [address] [place], [place] [id number] [facility] Protein (U) [Mass/Vol] 220 mg/dL High 0-9 Th e Pending Sale To [facility] Comment on above: Performed By: #### O HUY CALVILLOU, ADDONUAPLUS #### [facility] [address] [place], [place] [id number] [facility] Urine Protein/Creatinine Ratio 44115 mg/g{Cre} High 0-200 The Pending [facility] To [facility] Comment on above: Result Comment: PERF ORMED BY: [place] [address] PATHOLOGIST SOLE BUFFER JAYDON WEBER M.D. Performed By: #### O BUDS, CUU, ADDONUAPLUS #### [facility] [address] [place] [address] [place] Protein [Mass/volume] in Uri neOrdered By: JITENDRA Bales on 07-23-2023 Protein (U) [Mass/Vol] 220 mg/dL 0-9 [facility] RPR w/rfx to Quant TP Abson 07-23-2023 RPR, Rfx Quant RPR Non-Reactive Normal Non Reactive The [facility]ending [facility] Comment on above: Result Comment: Perf ormed at: CB - [facility] [place] [address] [employer] Supervisor: Dhruv Badillo PhD, Phone: [phone] PERFORMED BY: [place] [address] PATHOLOGIST SOLE BUFFER JAYDON WEBER M.D. Performed By: #### C USTB #### [facility] [address] [place] [address] [place] Reagin Ab [Presence] in Seru m by RPROrdered By: JITENDRA Bales on 07-23-2023 Reagin Ab RPR Ql (S) Non-Reactive Non Reactive [facility] Comment on above: Performed at: - [facility] [place] [address]Lab Director: Dhruv Badillo PhD, Phone: [phone] Specific gravity Auto test s trip (U) [Rel density]Ordered By: JITENDRA Bales on 07-23-2023 Specific gravity (U) [Rel density] 1.009 1.001-1.030 [facility] Squamous epithelial cells de tection in urine sediment by light microscopyOrdered By: JITENDRA Bales on 07-23-2023 Epithelial cells.squamous LM Ql (Urine sed) 3-4 [HPF] 0-2 [facility] Urine bacteria detection by automated methodOrdered By: JITENDRA Bales on 07-23-2023 Bacteria Auto Ql (U) Rare None Seen [facility] Urine clarity by refractomet ry automatedOrdered By: JITENDRA Bales on 07-23-2023 Clarity Refractometry automated (U) Clear Clear [facility] Urine glucose measurement by automated test strip (mass/volume)Ordered By: JON Bales on 07-23-2023 Glucose Auto test strip (U) [Mass/Vol] Normal mg/dL Normal [facility] Urine hemoglobin detection b y automated test stripOrdered By: JITENDRA Bales on 07-23-2023 Hemoglobin Auto test strip Ql (U) Negative Negative [facility] Urine leukocyte esterase det ection by automated test stripOrdered By: JITENDRA Bales on 07-23-2023 Leukocyte esterase Auto test strip Ql (U) Negative Negative [facility] Urine protein/creatinine rat ioOrdered By: JITENDRA Bales on 07-23-2023 Protein/Creatinine (U) [Ratio] 98688 mg/g{Cre} 0-200 [facility] Urobilinogen Auto test strip (U) [Mass/Vol]Ordered By: JITENDRA Bales on 07-23-2023 Urobilinogen (U) [Mass/Vol] Normal mg/dL Normal [facility] pH Auto test strip (U)Ordere d By: JITENDRA Bales on 07-23-2023 pH (U) 7.0 [pH] 5.0-9.0 [facility] Amnisure(Pamg-1)on Amnisure Negative Normal Negative The [facility]ending [facility] Comment on above: Order Comment: Comme nt For suspected repture of membranes Result Comment: PERF ORMED BY: [place] [address] PATHOLOGIST SOLE BUFFER JAYDON WEBER M.D. Performed By: #### C USTB #### [address] Amphetamine Screen Ql (U)Ord ered By: JITENDRA Bales on 07-20-2023 Amphetamines Ql (U) Negative Negative [facility] Automated erythrocytes count in urine sediment (number/area)Ordered By: JITENDRA Bales on 07-20-2023 RBC Auto (Urine sed) [#/Area] 0-1 [HPF] 0-4 [facility] Automated leukocytes count i n urine sediment (number/area)Ordered By: JITENDRA Bales on 07-20-2023 WBC Auto (Urine sed) [#/Area] 10-19 [HPF] 0-4 [facility] Barbiturates [Presence] in U rine by Screen methodOrdered By: JITENDRA Bales on 07-20-2023 Barbiturates Screen Ql (U) Negative Negative [facility] Benzodiazepines Screen Ql (U )Ordered By: JITENDRA Bales on 07-20-2023 Benzodiazepines Ql (U) Negative Negative Fi [facility] Benzoylecgonine [Presence] i n Urine by Screen methodOrdered By: JITENDRA Bales on 07-20-2023 Benzoylecgonine Screen Ql (U) Negative Negative [facility] Bilirubin Test strip Ql (U)O rdered By: JITENDRA Bales on 07-20-2023 Bilirubin Ql (U) Negative Negative [facility] Color Auto (U)Ordered By: MD HOWARD Bales on 07-20-2023 Color (U) Yellow Yellow [facility] Dipstick and Microscopicon 0 07-20-2023 Appearance (U) Clear Normal Clear The [facility]ending [facility] Comment on above: Order Comment: Name Collection Type:: Clean-Voided Midstream Performed By: #### C USTB #### [facility] [address] [place] [id number] [place] Bacteria,Urine 2+ High None Seen The Pending [facility] Comment on above: Order Comment: Name Collection Type:: Clean-Voided Midstream Performed By: #### C USTB #### [facility] [address] [place] [address] [place] Bilirubin,Urine Negative Normal Negative The Pending [facility] To [facility] Comment on above: Order Comment: Name Collection Type:: Clean-Voided Midstream Performed By: #### C USTB #### [facility] [address] [place] [address] [place] Color (U) Yellow Normal Yellow The Pending [facility] Comment on above: Order Comment: Name Collection Type:: Clean-Voided Midstream Performed By: #### C USTB #### [place] [id number] [place] Glucose Ql (U) Normal Normal Normal The Pending [facility] To [facility] Comment on above: Order Comment: Name Collection Type:: Clean-Voided Midstream Performed By: #### C USTB #### [place] [address] [place] Hyaline Casts,Urine 0-8 Normal 0-8 The Pending [facility] To [facility] Comment on above: Order Comment: Name Collection Type:: Clean-Voided Midstream Result Comment: PERF ORMED BY: [place] [address] PATHOLOGIST SOLE BUFFER JAYDON WEBER M.D. Performed By: #### C USTB #### [address] Ketones Ql (U) Negative Normal Negative The Pending [facility] To [facility] Comment on above: Order Comment: Name Collection Type:: Clean-Voided Midstream Performed By: #### C USTB #### [place] [address] [place] Leukocyte esterase Test strip Ql (U) 2+ High Negative The Pending [facility] Comment on above: Order Comment: Name Collection Type:: Clean-Voided Midstream Performed By: #### C USTB #### [place] [address] [place] Nitrite,Urine Negative Normal Negative The Pending [facility] To [facility] Comment on above: Order Comment: Name Collection Type:: Clean-Voided Midstream Performed By: #### C USTB #### [place] [address] [place] Occult Blood,Urine Negative Normal Negative The Pending [facility] To [facility] Comment on above: Order Comment: Name Collection Type:: Clean-Voided Midstream Result Comment: PERF ORMED BY: [place] [address] PATHOLOGIST SOLE BUFFER JAYDON WEBER M.D. Performed By: #### C USTB #### [place] [address] [place] pH (U) 7.0 [pH] Normal 5.0-9.0 The Pending [facility] To [facility] Comment on above: Order Comment: Name Collection Type:: Clean-Voided Midstream Performed By: #### C USTB #### [address] Protein (U) [Mass/Vol] 300 mg/dL High Negative Th e Pending Sale To [facility] Comment on above: Order Comment: Name Collection Type:: Clean-Voided Midstream Performed By: #### C USTB #### [address] RBC LM.HPF (Urine sed) [#/Area] 0 /[HPF] Normal 0-4 The Pending [facility] To [facility] Comment on above: Order Comment: Name Collection Type:: Clean-Voided Midstream Performed By: #### C USTB #### [address] Specificy [place],Urine 1.019 Normal 1.001-1.030 The Pending [facility] To [facility] Comment on above: Order Comment: Name Collection Type:: Clean-Voided Midstream Performed By: #### C USTB #### [place] [address] [place] Squamous Epithelial Cell,Urine 10-19 High 0-2 The Pending [facility] To [facility] Comment on above: Order Comment: Name Collection Type:: Clean-Voided Midstream Performed By: #### C USTB #### [address] Urobilinogen,Urine Normal Normal Normal The Pending [facility] To [facility] Comment on above: Order Comment: Name Collection Type:: Clean-Voided Midstream Performed By: #### C USTB #### [place] [address] [place] WBC,Urine 10-19 High 0-4 The Pending [facility] To [facility] Comment on above: Order Comment: Name Collection Type:: Clean-Voided Midstream Performed By: #### C USTB #### [address] Ketones Auto test strip (U) [Mass/Vol]Ordered By: JITENDRA Bales on 07-20-2023 Ketones (U) [Mass/Vol] Negative Negative Fi [facility] - UrinalysisOrder ed By: JITENDRA Bales on 07-20-2023 Hyaline casts LM Ql (Urine sed) 0-8 [LPF] 0-8 [facility] Nitrite Test strip Ql (U)Ord ered By: JITENDRA Bales on 07-20-2023 Nitrite Ql (U) Negative Negative [facility] No Panel InformationOrdered By: JITENDRA Bales on 07-20-2023 Membranes Rupture (PAMG-1) Negative Negative [facility] OB Urine Drug Screen (NO THC )on 07-20-2023 Amphetamine Screen,Urine Negative Normal Negative The Pending [facility] Comment on above: Performed By: #### C USTB #### [place] [address] [place] Barbiturate Screen,Urine Negative Normal Negative The Pending [facility] To [facility] Comment on above: Performed By: #### C USTB #### [place] [address] [place] Benzodiazepines Screen,Urine Negative Normal Negative The Pending [facility] To [facility] Comment on above: Performed By: #### C USTB #### [place] [address] [place] Cocaine Screen,Urine Negative Normal Negative The Pending [facility] To [facility] Comment on above: Performed By: #### C USTB #### [place] [address] [place] Opiate Screen,Urine Negative Normal Negative The Pending [facility] To [facility] Comment on above: Performed By: #### C USTB #### [place] [address] [place] Phencyclidine Screen, Urine Negative Normal Negative The Pending [facility] To [facility] Comment on above: Result Comment: Thes e are unconfirmed results and should not be used for legal purposes. Drug Cut-Off Concentration: AMPH 1000 ng/mL LEDA 200 ng/mL ERIC 200 ng/mL COCM 300 ng/mL OP 300 ng/mL PCP 25 ng/mL PERFORMED BY: [place] [address] PATHOLOGIST SOLE BUFFER JAYDON WEBER M.D. Performed By: #### C USTB #### [facility] [address] [place] [address] Opiates [Presence] in Urine by Screen methodOrdered By: JITENDRA Bales on 07-20-2023 Opiates Screen Ql (U) Negative Negative [facility] Phencyclidine Screen Ql (U)O rdered By: JITENDRA Bales on 07-20-2023 Phencyclidine Ql (U) Negative Negative [facility] Comment on above: These are unconfirme d results and should not be used for legal purposes. Drug Cut-Off Concentration: AMPH 1000 ng/mL LEDA 200 ng/mL ERIC 200 ng/mL COCM 300 ng/mL OP 300 ng/mL PCP 25 ng/mL Protein Auto test strip (U) [Mass/Vol]Ordered By: JITENDRA Bales on 07-20-2023 Protein (U) [Mass/Vol] 300 mg/dL Negative [facility] Specific gravity Auto test s trip (U) [Rel density]Ordered By: JITENDRA Bales on 07-20-2023 Specific gravity (U) [Rel density] 1.019 1.001-1.030 [facility] Squamous epithelial cells de tection in urine sediment by light microscopyOrdered By: JITENDRA Bales on 07-20-2023 Epithelial cells.squamous LM Ql (Urine sed) 10-19 [HPF] 0-2 [facility] Urine Cultureon 07-20-2023 Bacteria identified Cx Nom (U) >100,000 colonies/ml mixed bacterial skin contaminants 2 Days PERFORMED BY: [place] [address] PATHOLOGIST SOLE BUFFER JAYDON WEBER M.D. Normal The Pending Sale To [facility] Comment on above: Performed By: #### C USTB #### [place] [id number] [facility] Urine bacteria detection by automated methodOrdered By: JITENDRA Bales on 07-20-2023 Bacteria Auto Ql (U) 2+ None Seen [facility] Urine clarity by refractomet ry automatedOrdered By: JITENDRA Bales on 07-20-2023 Clarity Refractometry automated (U) Clear Clear [facility] Urine culture routineOrdered By: JITENDRA Bales on 07-20-2023 Bacteria identified Cx Nom (U) 2 Days [facility] Urine glucose measurement by automated test strip (mass/volume)Ordered By: JON Bales on 07-20-2023 Glucose Auto test strip (U) [Mass/Vol] Normal mg/dL Normal [facility] Urine hemoglobin detection b y automated test stripOrdered By: JITENDRA Bales on 07-20-2023 Hemoglobin Auto test strip Ql (U) Negative Negative [facility] Urine leukocyte esterase det ection by automated test stripOrdered By: JITENDRA Bales on 07-20-2023 Leukocyte esterase Auto test strip Ql (U) 2+ Negative [facility] Urobilinogen Auto test strip (U) [Mass/Vol]Ordered By: JITENDRA Bales on 07-20-2023 Urobilinogen (U) [Mass/Vol] Normal mg/dL Normal [facility] pH Auto test strip (U)Ordere d By: JITENDRA Bales on 07-20-2023 pH (U) 7.0 [pH] 5.0-9.0 [facility] Amphetamine Screen Ql (U)Ord ered By: JITENDRA Bales on 07-07-2023 Amphetamines Ql (U) Negative Negative [facility] Automated erythrocytes count in urine sediment (number/area)Ordered By: JITENDRA Bales on 07-07-2023 RBC Auto (Urine sed) [#/Area] 0-1 [HPF] 0-4 [facility] Automated leukocytes count i n urine sediment (number/area)Ordered By: JITENDRA Bales on 07-07-2023 WBC Auto (Urine sed) [#/Area] 5-9 [HPF] 0-4 [facility] Barbiturates [Presence] in U rine by Screen methodOrdered By: JITENDRA Bales on 07-07-2023 Barbiturates Screen Ql (U) Negative Negative [facility] Benzodiazepines Screen Ql (U )Ordered By: JITENDRA Bales on 07-07-2023 Benzodiazepines Ql (U) Negative Negative Fi [facility] Benzoylecgonine [Presence] i n Urine by Screen methodOrdered By: JITENDRA Bales on 07-07-2023 Benzoylecgonine Screen Ql (U) Negative Negative [facility] Bilirubin Test strip Ql (U)O rdered By: JITENDRA Bales on 07-07-2023 Bilirubin Ql (U) Negative Negative [facility] Color Auto (U)Ordered By: MD HOWARD Bales on 07-07-2023 Color (U) Yellow Yellow [facility] Dipstick and Microscopicon 0 07-07-2023 Appearance (U) Clear Normal Clear The Pending Sale To [facility] Comment on above: Order Comment: Name Collection Type:: Clean-Voided Midstream Performed By: #### O BUDS, CUU, ADDONUAPLUS #### [facility] [address] [place] [address] [place] Bacteria,Urine 2+ High None Seen The Pending Sale To [facility] Comment on above: Order Comment: Name Collection Type:: Clean-Voided Midstream Performed By: #### O BUDS, CUU, ADDONUAPLUS #### [facility] [address] [place] [address] [place] Bilirubin,Urine Negative Normal Negative The Pending Sale To [facility] Comment on above: Order Comment: Name Collection Type:: Clean-Voided Midstream Performed By: #### O BUDS, CUU, ADDONUAPLUS #### [facility] [address] [place] [address] [place] Color (U) Yellow Normal Yellow The Pending Sale To [facility] Comment on above: Order Comment: Name Collection Type:: Clean-Voided Midstream Performed By: #### O BUDS, CUU, ADDONUAPLUS #### [facility] [address] [place] [address] [place] Glucose Ql (U) Normal Normal Normal The Pending Sale To [facility] Comment on above: Order Comment: Name Collection Type:: Clean-Voided Midstream Performed By: #### O BUDS, CUU, ADDONUAPLUS #### [place] [address] [place] Hyaline Casts,Urine 0-8 Normal 0-8 The Pending Sale To [facility] Comment on above: Order Comment: Name Collection Type:: Clean-Voided Midstream Result Comment: PERF ORMED BY: [place] [address] PATHOLOGIST SOLE BUFFER JAYDON WEBER M.D. Performed By: #### O BUDS, CUU, ADDONUAPLUS #### [address] Ketones Ql (U) Negative Normal Negative The Pending Sale To [facility] Comment on above: Order Comment: Name Collection Type:: Clean-Voided Midstream Performed By: #### O BUDS, CUU, ADDONUAPLUS #### [address] Leukocyte esterase Test strip Ql (U) 2+ High Negative The Pending Sale To [facility] Comment on above: Order Comment: Name Collection Type:: Clean-Voided Midstream Performed By: #### O BUDS, CUU, ADDONUAPLUS #### [place] [address] [place] Nitrite,Urine Negative Normal Negative The Pending Sale To [facility] Comment on above: Order Comment: Name Collection Type:: Clean-Voided Midstream Performed By: #### O BUDS, CUU, ADDONUAPLUS #### [place] [address] [place] Occult Blood,Urine Negative Normal Negative The Pending Sale To [facility] Comment on above: Order Comment: Name Collection Type:: Clean-Voided Midstream Result Comment: PERF ORMED BY: [place] [address] PATHOLOGIST SOLE BUFFER JAYDON WEBER M.D. Performed By: #### O BUDS, CUU, ADDONUAPLUS #### [place] [address] [place] pH (U) 7.0 [pH] Normal 5.0-9.0 The Pending Sale To [facility] Comment on above: Order Comment: Name Collection Type:: Clean-Voided Midstream Performed By: #### O BUDS, CUU, ADDONUAPLUS #### [address] Protein (U) [Mass/Vol] 30 mg/dL High Negative Th e Pending Sale To [facility] Comment on above: Order Comment: Name Collection Type:: Clean-Voided Midstream Performed By: #### O BUDS, CUU, ADDONUAPLUS #### [place] [address] [place] RBC LM.HPF (Urine sed) [#/Area] 0 /[HPF] Normal 0-4 The Pending Sale To [facility] Comment on above: Order Comment: Name Collection Type:: Clean-Voided Midstream Performed By: #### O BUDS, CUU, ADDONUAPLUS #### [address] Specificy [place],Urine 1.009 Normal 1.001-1.030 The Pending Sale To [facility] Comment on above: Order Comment: Name Collection Type:: Clean-Voided Midstream Performed By: #### O BUDS, CUU, ADDONUAPLUS #### [address] Squamous Epithelial Cell,Urine 5-9 High 0-2 The Pending Sale To [facility] Comment on above: Order Comment: Name Collection Type:: Clean-Voided Midstream Performed By: #### O BUDS, CUU, ADDONUAPLUS #### [address] Urobilinogen,Urine Normal Normal Normal The Pending Sale To [facility] Comment on above: Order Comment: Name Collection Type:: Clean-Voided Midstream Performed By: #### O BUDS, CUU, ADDONUAPLUS #### [place] [address] [place] WBC,Urine 5-9 High 0-4 The Pending Sale To [facility] Comment on above: Order Comment: Name Collection Type:: Clean-Voided Midstream Performed By: #### O BUDS, CUU, ADDONUAPLUS #### [address] Ketones Auto test strip (U) [Mass/Vol]Ordered By: JITENDRA Bales on 07-07-2023 Ketones (U) [Mass/Vol] Negative Negative Fi [facility] Laboratory - UrinalysisOrder ed By: JITENDRA Bales on 07-07-2023 Hyaline casts LM Ql (Urine sed) 0-8 [LPF] 0-8 [facility] Nitrite Test strip Ql (U)Ord ered By: JITENDRA Bales on 07-07-2023 Nitrite Ql (U) Negative Negative [facility] OB Urine Drug Screen (NO THC )on 07-07-2023 Amphetamine Screen,Urine Negative Normal Negative The Pending Sale To [facility] Comment on above: Performed By: #### O BUDS, CUU, ADDONUAPLUS #### [address] Barbiturate Screen,Urine Negative Normal Negative The Pending Sale To [facility] Comment on above: Performed By: #### O BUDS, CUU, ADDONUAPLUS #### [place] [address] [place] Benzodiazepines Screen,Urine Negative Normal Negative The Pending Sale To [facility] Comment on above: Performed By: #### O BUDS, CUU, ADDONUAPLUS #### [place] [address] [place] Cocaine Screen,Urine Negative Normal Negative The Pending Sale To [facility] Comment on above: Performed By: #### O BUDS, CUU, ADDONUAPLUS #### [facility] [address] [place] [address] [place] Opiate Screen,Urine Negative Normal Negative The Pending Sale To [facility] Comment on above: Performed By: #### O BUDS, CUU, ADDONUAPLUS #### [place] [address] [place] Phencyclidine Screen, Urine Negative Normal Negative The Pending Sale To [facility] Comment on above: Result Comment: Thes e are unconfirmed results and should not be used for legal purposes. Drug Cut-Off Concentration: AMPH 1000 ng/mL LEDA 200 ng/mL ERIC 200 ng/mL COCM 300 ng/mL OP 300 ng/mL PCP 25 ng/mL PERFORMED BY: [place] [address] PATHOLOGIST SOLE BUFFER JAYDON WEBER M.D. Performed By: #### O NORMA CALVILLO ADDONUAPLUS #### [facility] [address] [place] [address] Opiates [Presence] in Urine by Screen methodOrdered By: JITENDRA Bales on 07-07-2023 Opiates Screen Ql (U) Negative Negative [facility] Phencyclidine Screen Ql (U)O rdered By: JITENDRA Bales on 07-07-2023 Phencyclidine Ql (U) Negative Negative [facility] Comment on above: These are unconfirme d results and should not be used for legal purposes. Drug Cut-Off Concentration: AMPH 1000 ng/mL LEDA 200 ng/mL ERIC 200 ng/mL COCM 300 ng/mL OP 300 ng/mL PCP 25 ng/mL Protein Auto test strip (U) [Mass/Vol]Ordered By: JITENDRA Bales on 07-07-2023 Protein (U) [Mass/Vol] 30 mg/dL Negative [facility] Specific gravity Auto test s trip (U) [Rel density]Ordered By: JITENDRA Bales on 07-07-2023 Specific gravity (U) [Rel density] 1.009 1.001-1.030 [facility] Squamous epithelial cells de tection in urine sediment by light microscopyOrdered By: JITENDRA Bales on 07-07-2023 Epithelial cells.squamous LM Ql (Urine sed) 5-9 [HPF] 0-2 [facility] Urine Cultureon 07-07-2023 Bacteria identified Cx Nom (U) >100,000 colonies/ml mixed bacterial skin contaminants 2 Days PERFORMED BY: [place] [address] PATHOLOGIST SOLE BUFFER JAYDON WEBER M.D. Normal The Pending Sale To [facility] Comment on above: Performed By: #### O HUY CALVILLOU, ADDONUAPLUS #### [place] [id number] [facility] Urine bacteria detection by automated methodOrdered By: JITENDRA Bales on 07-07-2023 Bacteria Auto Ql (U) 2+ None Seen [facility] Urine clarity by refractomet ry automatedOrdered By: JITENDRA Bales on 07-07-2023 Clarity Refractometry automated (U) Clear Clear [facility] Urine culture routineOrdered By: JITENDRA Bales on 07-07-2023 Bacteria identified Cx Nom (U) 2 Days [facility] Urine glucose measurement by automated test strip (mass/volume)Ordered By: JON Bales on 07-07-2023 Glucose Auto test strip (U) [Mass/Vol] Normal mg/dL Normal [facility] Urine hemoglobin detection b y automated test stripOrdered By: JITENDRA Bales on 07-07-2023 Hemoglobin Auto test strip Ql (U) Negative Negative [facility] Urine leukocyte esterase det ection by automated test stripOrdered By: JITENDRA Bales on 07-07-2023 Leukocyte esterase Auto test strip Ql (U) 2+ Negative [facility] Urobilinogen Auto test strip (U) [Mass/Vol]Ordered By: JITENDRA Bales on 07-07-2023 Urobilinogen (U) [Mass/Vol] Normal mg/dL Normal [facility] pH Auto test strip (U)Ordere d By: JITENDRA Bales on 07-07-2023 pH (U) 7.0 [pH] 5.0-9.0 [facility] Amnisure(Pamg-1)on Amnisure Negative Normal Negative The Pending Sale To [facility] Comment on above: Order Comment: Comme nt For suspected repture of membranes Result Comment: PERF ORMED BY: [place] [address] PATHOLOGIST SOLE BUFFER JAYDON WEBER M.D. Performed By: #### A ALEX-, NORMA, CARMEN, OBHUNTER #### [address] Amphetamine Screen Ql (U)Ord ered By: CARLOS BUCKLEY on 06-28-2023 Amphetamines Ql (U) Negative Negative [facility] Automated erythrocytes count in urine sediment (number/area)Ordered By: CARLOS BUCKLEY on 06-28-2023 RBC Auto (Urine sed) [#/Area] 1-2 [HPF] 0-4 [facility] Automated leukocytes count i n urine sediment (number/area)Ordered By: CARLOS BUCKLEY on 06-28-2023 WBC Auto (Urine sed) [#/Area] 10-19 [HPF] 0-4 [facility] Barbiturates [Presence] in U rine by Screen methodOrdered By: CARLOS BUCKLEY on 06-28-2023 Barbiturates Screen Ql (U) Negative Negative [facility] Benzodiazepines Screen Ql (U )Ordered By: CARLOS BUCKLEY on 06-28-2023 Benzodiazepines Ql (U) Negative Negative [facility] Benzoylecgonine [Presence] i n Urine by Screen methodOrdered By: CARLOS BUCKLEY on 06-28-2023 Benzoylecgonine Screen Ql (U) Negative Negative [facility] Bilirubin Test strip Ql (U)O rdered By: CARLOS BUCKLEY on 06-28-2023 Bilirubin Ql (U) Negative Negative [facility] Color Auto (U)Ordered By: MICHAEL BUCKLEY on 06-28-2023 Color (U) Yellow Yellow [facility] Dipstick and Microscopicon 0 06-28-2023 Appearance (U) Clear Normal Clear The Pending Sale To [facility] Comment on above: Order Comment: Name Collection Type:: Clean-Voided Midstream Performed By: #### A MNISURE-, CUU, ADDONUAPLUS, OBUDS #### [facility] [address] [place] [address] [place] Bacteria,Urine 2+ High None Seen The Pending Sale To [facility] Comment on above: Order Comment: Name Collection Type:: Clean-Voided Midstream Performed By: #### A MNISURE-, CUU, ADDONUAPLUS, OBUDS #### [facility] [address] [place] [address] [place] Bilirubin,Urine Negative Normal Negative The Pending Sale To [facility] Comment on above: Order Comment: Name Collection Type:: Clean-Voided Midstream Performed By: #### A MNISURE-, CUU, ADDONUAPLUS, OBUDS #### [address] Color (U) Yellow Normal Yellow The Pending Sale To [facility] Comment on above: Order Comment: Name Collection Type:: Clean-Voided Midstream Performed By: #### A MNISURE-, CUU, ADDONUAPLUS, OBUDS #### [address] Glucose Ql (U) Normal Normal Normal The Pending Sale To [facility] Comment on above: Order Comment: Name Collection Type:: Clean-Voided Midstream Performed By: #### A MNISURE-, CUU, ADDONUAPLUS, OBUDS #### [place] [address] [place] Hyaline Casts,Urine 0-8 Normal 0-8 The Pending Sale To [facility] Comment on above: Order Comment: Name Collection Type:: Clean-Voided Midstream Result Comment: PERF ORMED BY: [place] [address] PATHOLOGIST SOLE BUFFER JAYDON WEBER M.D. Performed By: #### A MNISURE-, CUU, ADDONUAPLUS, OBUDS #### [address] Ketones Ql (U) Negative Normal Negative The Pending Sale To [facility] Comment on above: Order Comment: Name Collection Type:: Clean-Voided Midstream Performed By: #### A MNISURE-, CUU, ADDONUAPLUS, OBUDS #### [address] Leukocyte esterase Test strip Ql (U) 2+ High Negative The Pending Sale To [facility] Comment on above: Order Comment: Name Collection Type:: Clean-Voided Midstream Performed By: #### A MNISURE-, CUU, ADDONUAPLUS, OBUDS #### [address] Nitrite,Urine Negative Normal Negative The Pending Sale To [facility] Comment on above: Order Comment: Name Collection Type:: Clean-Voided Midstream Performed By: #### A MNISURE-, CUU, ADDONUAPLUS, OBUDS #### [place] [address] [place] Occult Blood,Urine Negative Normal Negative The Pending Sale To [facility] Comment on above: Order Comment: Name Collection Type:: Clean-Voided Midstream Result Comment: PERF ORMED BY: [place] [address] PATHOLOGIST SOLE BUFFER JAYDON WEBER M.D. Performed By: #### A MNISURE-, CUU, ADDONUAPLUS, OBUDS #### [address] pH (U) 7.0 [pH] Normal 5.0-9.0 The Pending Sale To [facility] Comment on above: Order Comment: Name Collection Type:: Clean-Voided Midstream Performed By: #### A MNISURE-, CUU, ADDONUAPLUS, OBUDS #### [place] [address] [place] Protein (U) [Mass/Vol] 30 mg/dL High Negative Th e Pending Sale To [facility] Comment on above: Order Comment: Name Collection Type:: Clean-Voided Midstream Performed By: #### A MNISURE-, CUU, ADDONUAPLUS, OBUDS #### [address] RBC,Urine 1-2 Normal 0-4 The Pending Sale To [facility] Comment on above: Order Comment: Name Collection Type:: Clean-Voided Midstream Performed By: #### A MNISURE-, CUU, ADDONUAPLUS, OBUDS #### [place] [address] [place] Specificy [place],Urine 1.003 Normal 1.001-1.030 The Pending Sale To [facility] Comment on above: Order Comment: Name Collection Type:: Clean-Voided Midstream Performed By: #### A MNISURE-, CUU, ADDONUAPLUS, OBUDS #### [place] [address] [place] Squamous Epithelial Cell,Urine 5-9 High 0-2 The Pending Sale To [facility] Comment on above: Order Comment: Name Collection Type:: Clean-Voided Midstream Performed By: #### A MNISURE-, CUU, ADDONUAPLUS, OBUDS #### [facility] [address] [place] [address] Urobilinogen,Urine Normal Normal Normal The Pending Sale To [facility] Comment on above: Order Comment: Name Collection Type:: Clean-Voided Midstream Performed By: #### A MNISURE-, CUU, ADDONUAPLUS, OBUDS #### [facility] [address] [place] [address] WBC,Urine 10-19 High 0-4 The Pending Sale To [facility] Comment on above: Order Comment: Name Collection Type:: Clean-Voided Midstream Performed By: #### A MNISURE-, CUU, ADDONUAPLUS, OBUDS #### [facility] [address] [place] [address] Group B Streptococcus cultur eOrdered By: Chuck Monroe on 06-28-2023 S. agalactiae Org specific cx Ql (Unsp spec) No Group B Beta Streptococcus Isolated 3 Days [facility] Ketones Auto test strip (U) [Mass/Vol]Ordered By: CARLOS BUCKLEY on 06-28-2023 Ketones (U) [Mass/Vol] Negative Negative [facility] - UrinalysisOrder ed By: CARLOS BUCKLEY on 06-28-2023 Hyaline casts LM Ql (Urine sed) 0-8 [LPF] 0-8 [facility] Nitrite Test strip Ql (U)Ord ered By: CARLOS BUCKLEY on 06-28-2023 Nitrite Ql (U) Negative Negative [facility] No Panel InformationOrdered By: CARLOS BUCKLEY on 06-28-2023 Membranes Rupture (PAMG-1) Negative Negative [facility] OB Urine Drug Screen (NO THC )on 06-28-2023 Amphetamine Screen,Urine Negative Normal Negative The Pending Sale To [facility] Comment on above: Performed By: #### A MNISURE-, CUU, ADDONUAPLUS, OBUDS #### [facility] [address] [place] [address] Barbiturate Screen,Urine Negative Normal Negative The Pending Sale To [facility] Comment on above: Performed By: #### A MNISURE-, CUU, ADDONUAPLUS, OBUDS #### [facility] [address] Benzodiazepines Screen,Urine Negative Normal Negative The Pending Sale To [facility] Comment on above: Performed By: #### A MNISURE-, CUU, ADDONUAPLUS, OBUDS #### [address] Cocaine Screen,Urine Negative Normal Negative The Pending Sale To [facility] Comment on above: Performed By: #### A MNISURE-, CUU, ADDONUAPLUS, OBUDS #### [address] Opiate Screen,Urine Negative Normal Negative The Pending Sale To [facility] Comment on above: Performed By: #### A MNISURE-, CUU, ADDONUAPLUS, OBUDS #### [address] Phencyclidine Screen, Urine Negative Normal Negative The Pending Sale To [facility] Comment on above: Result Comment: Thes e are unconfirmed results and should not be used for legal purposes. Drug Cut-Off Concentration: AMPH 1000 ng/mL LEDA 200 ng/mL ERIC 200 ng/mL COCM 300 ng/mL OP 300 ng/mL PCP 25 ng/mL PERFORMED BY: [place] [address] PATHOLOGIST SOLE BUFFER JAYDON WEBER M.D. Performed By: #### A MNISURE-, CUU, ADDONUAPLUS, OBUDS #### [address] Opiates [Presence] in Urine by Screen methodOrdered By: CARLOS BUCKLEY on 06-28-2023 Opiates Screen Ql (U) Negative Negative [facility] Phencyclidine Screen Ql (U)O rdered By: CARLOS BUCKLEY on 06-28-2023 Phencyclidine Ql (U) Negative Negative [facility] Comment on above: These are unconfirme d results and should not be used for legal purposes. Drug Cut-Off Concentration: AMPH 1000 ng/mL LEDA 200 ng/mL ERIC 200 ng/mL COCM 300 ng/mL OP 300 ng/mL PCP 25 ng/mL Protein Auto test strip (U) [Mass/Vol]Ordered By: CARLOS BUCKLEY on 06-28-2023 Protein (U) [Mass/Vol] 30 mg/dL [facility] gravity Auto test s trip (U) [Rel density]Ordered By: CARLOS BUCKLEY on 06-28-2023 Specific gravity (U) [Rel density] 1.003 1.001-1.030 [facility] Squamous epithelial cells de tection in urine sediment by light microscopyOrdered By: CARLOS BUCKLEY on 06-28-2023 Epithelial cells.squamous LM Ql (Urine sed) 5-9 [HPF] 0-2 [facility] Strep B Cultureon 06-28-2023 Strep B Culture No Group B Beta Streptococcus Isolated 3 Days PERFORMED BY: [place] [address] PATHOLOGIST SOLE BUFFER JAYDON WEBER M.D. Normal The Pending [facility] To [facility] Comment on above: Performed By: #### C USTB #### [facility] [address] [place] [address] Urine Cultureon 06-28-2023 Bacteria identified Cx Nom (U) <9,000 colonies/ml mixed bacterial skin contaminants 2 Days PERFORMED BY: [place] [address] PATHOLOGIST SOLE BUFFER JAYDON WEBER M.D. Normal The Pending Sale To [facility] Comment on above: Performed By: #### A MNISURE-, CUU, ADDONUAPLUS, OBUDS #### [facility] [address] [place] [address] Urine bacteria detection by automated methodOrdered By: CARLOS BUCKLEY on 06-28-2023 Bacteria Auto Ql (U) 2+ None Seen [facility] Urine clarity by refractomet ry automatedOrdered By: CARLOS BUCKLEY on 06-28-2023 Clarity Refractometry automated (U) Clear Clear [facility] Urine culture routineOrdered By: CARLOS BUCKLEY on 06-28-2023 Bacteria identified Cx Nom (U) 2 Days [facility] Urine glucose measurement by automated test strip (mass/volume)Ordered By: CARLOS BUCKLEY on 06-28-2023 Glucose Auto test strip (U) [Mass/Vol] Normal mg/dL Normal [facility] Urine hemoglobin detection b y automated test stripOrdered By: CARLOS BUCKLEY on 06-28-2023 Hemoglobin Auto test strip Ql (U) Negative Negative [facility] Urine leukocyte esterase det ection by automated test stripOrdered By: CARLOS BUCKLEY on 06-28-2023 Leukocyte esterase Auto test strip Ql (U) 2+ Negative [facility] Urobilinogen Auto test strip (U) [Mass/Vol]Ordered By: CARLOS BUCKLEY on 06-28-2023 Urobilinogen (U) [Mass/Vol] Normal mg/dL Normal [facility] pH Auto test strip (U)Ordere d By: CARLOS BUCKLEY on 06-28-2023 pH (U) 7.0 [pH] 5.0-9.0 [facility] Dipstick and Microscopicon 0 06-21-2023 Appearance (U) Clear Normal Clear The Pending Sale To [facility] Comment on above: Order Comment: Name Collection Type:: Clean-Voided Midstream Performed By: #### O BUDS, CUU, ADDONUAPLUS #### [facility] [address] [id number] [place] Bacteria,Urine 1+ High None Seen The Pending Sale To [facility] Comment on above: Order Comment: Name Collection Type:: Clean-Voided Midstream Performed By: #### O BUDS, CUU, ADDONUAPLUS #### [facility] [address] [id number] [place] Bilirubin,Urine Negative Normal Negative The Pending Sale To [facility] Comment on above: Order Comment: Name Collection Type:: Clean-Voided Midstream Performed By: #### O BUDS, CUU, ADDONUAPLUS #### [facility] [address] [id number] [place] Color (U) Yellow Normal Yellow The Pending Sale To [facility] Comment on above: Order Comment: Name Collection Type:: Clean-Voided Midstream Performed By: #### O BUDS, CUU, ADDONUAPLUS #### [place] [address] [place] Glucose Ql (U) Normal Normal Normal The Pending Sale To [facility] Comment on above: Order Comment: Name Collection Type:: Clean-Voided Midstream Performed By: #### O BUDS, CUU, ADDONUAPLUS #### [place] [address] [place] Hyaline Casts,Urine 0-8 Normal 0-8 The Pending Sale To [facility] Comment on above: Order Comment: Name Collection Type:: Clean-Voided Midstream Result Comment: PERF ORMED BY: [place] [address] PATHOLOGIST SOLE BUFFER JAYDON WEBER M.D. Performed By: #### O BUDS, CUU, ADDONUAPLUS #### [address] Ketones Ql (U) Negative Normal Negative The Pending Sale To [facility] Comment on above: Order Comment: Name Collection Type:: Clean-Voided Midstream Performed By: #### O BUDS, CUU, ADDONUAPLUS #### [place] [address] [place] Leukocyte esterase Test strip Ql (U) 1+ High Negative The Pending Sale To [facility] Comment on above: Order Comment: Name Collection Type:: Clean-Voided Midstream Performed By: #### O BUDS, CUU, ADDONUAPLUS #### [place] [address] [place] Nitrite,Urine Negative Normal Negative The Pending Sale To [facility] Comment on above: Order Comment: Name Collection Type:: Clean-Voided Midstream Performed By: #### O BUDS, CUU, ADDONUAPLUS #### [place] [address] [place] Occult Blood,Urine Negative Normal Negative The Pending Sale To [facility] Comment on above: Order Comment: Name Collection Type:: Clean-Voided Midstream Result Comment: PERF ORMED BY: [place] [address] PATHOLOGIST SOLE BUFFER JAYDON WEBER M.D. Performed By: #### O BUDS, CUU, ADDONUAPLUS #### [address] pH (U) 6.5 [pH] Normal 5.0-9.0 The Pending Sale To [facility] Comment on above: Order Comment: Name Collection Type:: Clean-Voided Midstream Performed By: #### O BUDS, CUU, ADDONUAPLUS #### [address] Protein (U) [Mass/Vol] 30 mg/dL High Negative Th e Pending Sale To [facility] Comment on above: Order Comment: Name Collection Type:: Clean-Voided Midstream Performed By: #### O BUDS, CUU, ADDONUAPLUS #### [address] RBC LM.HPF (Urine sed) [#/Area] 0 /[HPF] Normal 0-4 The Pending Sale To [facility] Comment on above: Order Comment: Name Collection Type:: Clean-Voided Midstream Performed By: #### O BUDS, CUU, ADDONUAPLUS #### [address] Specificy [place],Urine 1.014 Normal 1.001-1.030 The Pending Sale To [facility] Comment on above: Order Comment: Name Collection Type:: Clean-Voided Midstream Performed By: #### O BUDS, CUU, ADDONUAPLUS #### [address] Squamous Epithelial Cell,Urine 3-4 High 0-2 The Pending Sale To [facility] Comment on above: Order Comment: Name Collection Type:: Clean-Voided Midstream Performed By: #### O BUDS, CUU, ADDONUAPLUS #### [address] Urobilinogen,Urine Normal Normal Normal The Pending Sale To [facility] Comment on above: Order Comment: Name Collection Type:: Clean-Voided Midstream Performed By: #### O BUDS, CUU, ADDONUAPLUS #### [address] WBC,Urine 3-4 Normal 0-4 The Pending Sale To [facility] Comment on above: Order Comment: Name Collection Type:: Clean-Voided Midstream Performed By: #### O BUDS, CUU, ADDONUAPLUS #### [address] OB Urine Drug Screen (NO THC )on 06-21-2023 Amphetamine Screen,Urine Negative Normal Negative The Pending Sale To [facility] Comment on above: Performed By: #### O BUDS, CUU, ADDONUAPLUS #### [address] Barbiturate Screen,Urine Negative Normal Negative The Pending Sale To [facility] Comment on above: Performed By: #### O BUDS, CUU, ADDONUAPLUS #### [address] Benzodiazepines Screen,Urine Negative Normal Negative The Pending Sale To [facility] Comment on above: Performed By: #### O BUDS, CUU, ADDONUAPLUS #### [address] Cocaine Screen,Urine Negative Normal Negative The Pending Sale To [facility] Comment on above: Performed By: #### O BUDS, CUU, ADDONUAPLUS #### [place] [address] [place] Opiate Screen,Urine Negative Normal Negative The Pending Sale To [facility] Comment on above: Performed By: #### O BUDS, CUU, ADDONUAPLUS #### [address] Phencyclidine Screen, Urine Negative Normal Negative The Pending Sale To [facility] Comment on above: Result Comment: Thes e are unconfirmed results and should not be used for legal purposes. Drug Cut-Off Concentration: AMPH 1000 ng/mL LEDA 200 ng/mL ERIC 200 ng/mL COCM 300 ng/mL OP 300 ng/mL PCP 25 ng/mL PERFORMED BY: [place] [address] PATHOLOGIST SOLE BUFFER JAYDON WEBER M.D. Performed By: #### O BUDS, CUU, ADDONUAPLUS #### [address] [address] [facility] Amphetamine Screen Ql (U)Ord ered By: Chuck Monroe on 06-20-2023 Amphetamines Ql (U) Negative Negative [facility] Automated erythrocytes count in urine sediment (number/area)Ordered By: Chuck Monroe on 06-20-2023 RBC Auto (Urine sed) [#/Area] 0-1 [HPF] 0-4 [facility] Automated leukocytes count i n urine sediment (number/area)Ordered By: Chuck Monroe on 06-20-2023 WBC Auto (Urine sed) [#/Area] 3-4 [HPF] 0-4 [facility] Barbiturates [Presence] in U rine by Screen methodOrdered By: Chuck Monroe on 06-20-2023 Barbiturates Screen Ql (U) Negative Negative [facility] Benzodiazepines Screen Ql (U )Ordered By: Chuck Monroe on 06-20-2023 Benzodiazepines Ql (U) Negative Negative [facility] Benzoylecgonine [Presence] i n Urine by Screen methodOrdered By: Chuck Monroe on 06-20-2023 Benzoylecgonine Screen Ql (U) Negative Negative [facility] Bilirubin Test strip Ql (U)O rdered By: Chuck Monroe on 06-20-2023 Bilirubin Ql (U) Negative Negative [facility] Color Auto (U)Ordered By: Kamilah Monroe on 06-20-2023 Color (U) Yellow Yellow [facility] Ketones Auto test strip (U) [Mass/Vol]Ordered By: Chuck Monroe on 06-20-2023 Ketones (U) [Mass/Vol] Negative Negative [facility] Laboratory - UrinalysisOrder ed By: Chuck Monroe on 06-20-2023 Hyaline casts LM Ql (Urine sed) 0-8 [LPF] 0-8 [facility] Nitrite Test strip Ql (U)Ord ered By: Chuck Monroe on 06-20-2023 Nitrite Ql (U) Negative Negative [facility] Opiates [Presence] in Urine by Screen methodOrdered By: Chuck Monroe on 06-20-2023 Opiates Screen Ql (U) Negative Negative [facility] Phencyclidine Screen Ql (U)O rdered By: Chuck Monroe on 06-20-2023 Phencyclidine Ql (U) Negative Negative [facility] Comment on above: These are unconfirme d results and should not be used for legal purposes. Drug Cut-Off Concentration: AMPH 1000 ng/mL LEDA 200 ng/mL ERIC 200 ng/mL COCM 300 ng/mL OP 300 ng/mL PCP 25 ng/mL Protein Auto test strip (U) [Mass/Vol]Ordered By: Chuck Monroe on 06-20-2023 Protein (U) [Mass/Vol] 30 mg/dL Negative [facility] Specific gravity Auto test s trip (U) [Rel density]Ordered By: Chuck Monroe on 06-20-2023 Specific gravity (U) [Rel density] 1.014 1.001-1.030 [facility] Squamous epithelial cells de tection in urine sediment by light microscopyOrdered By: Chuck Monroe on 06-20-2023 Epithelial cells.squamous LM Ql (Urine sed) 3-4 [HPF] 0-2 [facility] Urine bacteria detection by automated methodOrdered By: Chuck Monroe on 06-20-2023 Bacteria Auto Ql (U) 1+ None Seen [facility] Urine clarity by refractomet ry automatedOrdered By: Chuck Monroe on 06-20-2023 Clarity Refractometry automated (U) Clear Clear [facility] Urine glucose measurement by automated test strip (mass/volume)Ordered By: Chuck Monroe on 06-20-2023 Glucose Auto test strip (U) [Mass/Vol] Normal mg/dL Normal [facility] Urine hemoglobin detection b y automated test stripOrdered By: Chuck Monroe on 06-20-2023 Hemoglobin Auto test strip Ql (U) Negative Negative [facility] Urine leukocyte esterase det ection by automated test stripOrdered By: Chuck Monroe on 06-20-2023 Leukocyte esterase Auto test strip Ql (U) 1+ Negative [facility] Urobilinogen Auto test strip (U) [Mass/Vol]Ordered By: Chuck Monroe on 06-20-2023 Urobilinogen (U) [Mass/Vol] Normal mg/dL Normal [facility] pH Auto test strip (U)Ordere d By: Chuck Monroe on 06-20-2023 pH (U) 6.5 [pH] 5.0-9.0 [facility] Amphetamine Screen Ql (U)Ord ered By: Chuck Monroe on 06-05-2023 Amphetamines Ql (U) Negative Negative [facility] Automated erythrocytes count in urine sediment (number/area)Ordered By: Chuck Monroe on 06-05-2023 RBC Auto (Urine sed) [#/Area] 0-1 [HPF] 0-4 [facility] Automated leukocytes count i n urine sediment (number/area)Ordered By: Chuck Monroe on 06-05-2023 WBC Auto (Urine sed) [#/Area] 20-49 [HPF] 0-4 [facility] Barbiturates [Presence] in U rine by Screen methodOrdered By: Chuck Monroe on 06-05-2023 Barbiturates Screen Ql (U) Negative Negative [facility] Benzodiazepines Screen Ql (U )Ordered By: Chuck Monroe on 06-05-2023 Benzodiazepines Ql (U) Negative Negative [facility] Benzoylecgonine [Presence] i n Urine by Screen methodOrdered By: Chuck Monroe on 06-05-2023 Benzoylecgonine Screen Ql (U) Negative Negative [facility] Bilirubin Test strip Ql (U)O rdered By: Chuck Monroe on 06-05-2023 Bilirubin Ql (U) Negative Negative [facility] Color Auto (U)Ordered By: Kamilah Monroe on 06-05-2023 Color (U) Yellow Yellow [facility] Dipstick and Microscopicon 0 06-05-2023 Appearance (U) Turbid Critically abnormal Clear The Pending Sale To [facility] Comment on above: Order Comment: Name Collection Type:: Clean-Voided Midstream Performed By: #### O BUDS, CUU, ADDONUAPLUS #### [facility] [address] [place] [address] [place] Bacteria,Urine 3+ High None Seen The Pending Sale To [facility] Comment on above: Order Comment: Name Collection Type:: Clean-Voided Midstream Performed By: #### O BUDS, CUU, ADDONUAPLUS #### [facility] [address] [id number] [place] Bilirubin,Urine Negative Normal Negative The Pending Sale To [facility] Comment on above: Order Comment: Name Collection Type:: Clean-Voided Midstream Performed By: #### O BUDS, CUU, ADDONUAPLUS #### [address] Color (U) Yellow Normal Yellow The Pending Sale To [facility] Comment on above: Order Comment: Name Collection Type:: Clean-Voided Midstream Performed By: #### O BUDS, CUU, ADDONUAPLUS #### [address] Glucose Ql (U) Normal Normal Normal The Pending Sale To [facility] Comment on above: Order Comment: Name Collection Type:: Clean-Voided Midstream Performed By: #### O BUDS, CUU, ADDONUAPLUS #### [address] Hyaline Casts,Urine 0-8 Normal 0-8 The Pending Sale To [facility] Comment on above: Order Comment: Name Collection Type:: Clean-Voided Midstream Result Comment: PERF ORMED BY: [place] [address] PATHOLOGIST SOLE BUFFER JAYDON WEBER M.D. Performed By: #### O BUDS, CUU, ADDONUAPLUS #### [address] Ketones Ql (U) Negative Normal Negative The Pending Sale To [facility] Comment on above: Order Comment: Name Collection Type:: Clean-Voided Midstream Performed By: #### O BUDS, CUU, ADDONUAPLUS #### [address] Leukocyte esterase Test strip Ql (U) 2+ High Negative The Pending Sale To [facility] Comment on above: Order Comment: Name Collection Type:: Clean-Voided Midstream Performed By: #### O BUDS, CUU, ADDONUAPLUS #### [place] [address] [place] Nitrite,Urine Negative Normal Negative The Pending Sale To [facility] Comment on above: Order Comment: Name Collection Type:: Clean-Voided Midstream Performed By: #### O BUDS, CUU, ADDONUAPLUS #### [address] Occult Blood,Urine Negative Normal Negative The Pending Sale To [facility] Comment on above: Order Comment: Name Collection Type:: Clean-Voided Midstream Result Comment: PERF ORMED BY: [place] [address] PATHOLOGIST SOLE BUFFER JAYDON WEBER M.D. Performed By: #### O BUDS, CUU, ADDONUAPLUS #### [address] pH (U) 7.5 [pH] Normal 5.0-9.0 The Pending Sale To [facility] Comment on above: Order Comment: Name Collection Type:: Clean-Voided Midstream Performed By: #### O BUDS, CUU, ADDONUAPLUS #### [address] Protein,Urine Trace High Negative The Pending Sale To [facility] Comment on above: Order Comment: Name Collection Type:: Clean-Voided Midstream Performed By: #### O BUDS, CUU, ADDONUAPLUS #### [address] RBC LM.HPF (Urine sed) [#/Area] 0 /[HPF] Normal 0-4 The Pending Sale To [facility] Comment on above: Order Comment: Name Collection Type:: Clean-Voided Midstream Performed By: #### O BUDS, CUU, ADDONUAPLUS #### [address] Specificy [place],Urine 1.019 Normal 1.001-1.030 The Pending Sale To [facility] Comment on above: Order Comment: Name Collection Type:: Clean-Voided Midstream Performed By: #### O BUDS, CUU, ADDONUAPLUS #### [address] Squamous Epithelial Cell,Urine 5-9 High 0-2 The Pending Sale To [facility] Comment on above: Order Comment: Name Collection Type:: Clean-Voided Midstream Performed By: #### O BUDS, CUU, ADDONUAPLUS #### [facility] [address] Urobilinogen,Urine Normal Normal Normal The Pending Sale To [facility] Comment on above: Order Comment: Name Collection Type:: Clean-Voided Midstream Performed By: #### O BUDS, CUU, ADDONUAPLUS #### [facility] [address] [place] [address] WBC,Urine 20-49 High 0-4 The Pending Sale To [facility] Comment on above: Order Comment: Name Collection Type:: Clean-Voided Midstream Performed By: #### O BUDS, CUU, ADDONUAPLUS #### [address] Fibronectinon 06-05-19 Fibronectin Negative Normal Negative The Pending Sale To [facility] Comment on above: Order Comment: Comme nt patients 22 - 34 6/7 weeks prior to vaginal exam Result Comment: PERF ORMED BY: [place] [address] PATHOLOGIST SOLE BUFFER JAYDON WEBER M.D. Performed By: #### O BUDS, CUU, ADDONUAPLUS #### [address] fibronectinOrdered By: Chuck Monroe on 06-05-2023 Fibronectin. (Vag fld) [Mass/Vol] Negative Negative [facility] Ketones Auto test strip (U) [Mass/Vol]Ordered By: Chuck Monroe on 06-05-2023 Ketones (U) [Mass/Vol] Negative Negative [facility] - UrinalysisOrder ed By: Chuck Monroe on 06-05-2023 Hyaline casts LM Ql (Urine sed) 0-8 [LPF] 0-8 [facility] Nitrite Test strip Ql (U)Ord ered By: Chuck Monroe on 06-05-2023 Nitrite Ql (U) Negative Negative [facility] OB Urine Drug Screen (NO THC )on 06-05-2023 Amphetamine Screen,Urine Negative Normal Negative The Pending Sale To [facility] Comment on above: Performed By: #### O BUDS, CUU, ADDONUAPLUS #### [address] Barbiturate Screen,Urine Negative Normal Negative The Pending Sale To [facility] Comment on above: Performed By: #### O BUDS, CUU, ADDONUAPLUS #### [place] [address] [place] Benzodiazepines Screen,Urine Negative Normal Negative The Pending Sale To [facility] Comment on above: Performed By: #### O BUDS, CUU, ADDONUAPLUS #### [place] [address] [place] Cocaine Screen,Urine Negative Normal Negative The Pending Sale To [facility] Comment on above: Performed By: #### O BUDS, CUU, ADDONUAPLUS #### [address] Opiate Screen,Urine Negative Normal Negative The Pending Sale To [facility] Comment on above: Performed By: #### O BUDS, CUU, ADDONUAPLUS #### [address] Phencyclidine Screen, Urine Negative Normal Negative The Pending Sale To [facility] Comment on above: Result Comment: Thes e are unconfirmed results and should not be used for legal purposes. Drug Cut-Off Concentration: AMPH 1000 ng/mL LEDA 200 ng/mL ERIC 200 ng/mL COCM 300 ng/mL OP 300 ng/mL PCP 25 ng/mL PERFORMED BY: [place] [address] PATHOLOGIST SOLE BUFFER JAYDON WEBER M.D. Performed By: #### O BUDS, CUU, ADDONUAPLUS #### [address] Opiates [Presence] in Urine by Screen methodOrdered By: Chuck Monroe on 06-05-2023 Opiates Screen Ql (U) Negative Negative [facility] Phencyclidine Screen Ql (U)O rdered By: Chuck Monroe on 06-05-2023 Phencyclidine Ql (U) Negative Negative [facility] Comment on above: These are unconfirme d results and should not be used for legal purposes. Drug Cut-Off Concentration: AMPH 1000 ng/mL LEDA 200 ng/mL ERIC 200 ng/mL COCM 300 ng/mL OP 300 ng/mL PCP 25 ng/mL Protein Auto test strip (U) [Mass/Vol]Ordered By: Chuck Monroe on 06-05-2023 Protein (U) [Mass/Vol] Trace mg/dL Negative [facility] Specific gravity Auto test s trip (U) [Rel density]Ordered By: Chuck Monroe on 06-05-2023 Specific gravity (U) [Rel density] 1.019 1.001-1.030 [facility] Squamous epithelial cells de tection in urine sediment by light microscopyOrdered By: Chuck Monroe on 06-05-2023 Epithelial cells.squamous LM Ql (Urine sed) 5-9 [HPF] 0-2 [facility] Urine Cultureon 06-05-2023 Bacteria identified Cx Nom (U) >100,000 colonies/ml mixed bacterial skin contaminants 2 Days PERFORMED BY: [place] [address] PATHOLOGIST SOLE BUFFER JAYDON WEBER M.D. Normal The Pending Sale To [facility] Comment on above: Performed By: #### O BUDS, CUU, ADDONUAPLUS #### [address] Urine bacteria detection by automated methodOrdered By: Chuck Monroe on 06-05-2023 Bacteria Auto Ql (U) 3+ None Seen [facility] Urine clarity by refractomet ry automatedOrdered By: Chuck Monroe on 06-05-2023 Clarity Refractometry automated (U) Turbid Clear [facility] Urine culture routineOrdered By: Chuck Monroe on 06-05-2023 Bacteria identified Cx Nom (U) 2 Days [facility] Urine glucose measurement by automated test strip (mass/volume)Ordered By: Chuck Monroe on 06-05-2023 Glucose Auto test strip (U) [Mass/Vol] Normal mg/dL Normal [facility] Urine hemoglobin detection b y automated test stripOrdered By: Chuck Monroe on 06-05-2023 Hemoglobin Auto test strip Ql (U) Negative Negative [facility] Urine leukocyte esterase det ection by automated test stripOrdered By: Chuck Monroe on 06-05-2023 Leukocyte esterase Auto test strip Ql (U) 2+ Negative [facility] Urobilinogen Auto test strip (U) [Mass/Vol]Ordered By: Chuck Monroe on 06-05-2023 Urobilinogen (U) [Mass/Vol] Normal mg/dL Normal [facility] pH Auto test strip (U)Ordere d By: Chuck Monroe on 06-05-2023 pH (U) 7.5 [pH] 5.0-9.0 [facility] No Panel Informationon 05-25 Glucose, UA Negative Negative - 1999(110) ++++ mg/dL [facility] Interpretation and review of laboratory results Normal [facility] Leukocytes, UA Negative Negative - 500+++ Marisabel/mcL [facility] Nitrite, UA Negative Negative - Positive [facility] Protein, UA Negative Negative - 1999(20) ++++ mg/dL [facility] Amphetamine Screen Ql (U)Ord ered By: Chuck Monroe on 05-24-2023 Amphetamines Ql (U) Negative Negative [facility] Automated erythrocytes count in urine sediment (number/area)Ordered By: Chuck Monroe on 05-24-2023 RBC Auto (Urine sed) [#/Area] None seen [HPF] 0-4 [facility] Automated leukocytes count i n urine sediment (number/area)Ordered By: Chuck Monroe on 05-24-2023 WBC Auto (Urine sed) [#/Area] 5-9 [HPF] 0-4 [facility] Barbiturates [Presence] in U rine by Screen methodOrdered By: Chuck Monroe on 05-24-2023 Barbiturates Screen Ql (U) Negative Negative [facility] Benzodiazepines Screen Ql (U )Ordered By: Chuck Monroe on 05-24-2023 Benzodiazepines Ql (U) Negative Negative [facility] Benzoylecgonine [Presence] i n Urine by Screen methodOrdered By: Chuck Monroe on 05-24-2023 Benzoylecgonine Screen Ql (U) Negative Negative [facility] Bilirubin Test strip Ql (U)O rdered By: Chuck Monroe on 05-24-2023 Bilirubin Ql (U) Negative Negative [facility] Color Auto (U)Ordered By: Kamilah Monroe on 05-24-2023 Color (U) Yellow Yellow [facility] Dipstick and Microscopicon 0 05-24-2023 Appearance (U) Clear Normal Clear The Pending [facility] To [facility] Comment on above: Order Comment: Name Collection Type:: Clean-Voided Midstream Performed By: #### A DDONUAPLUS, FFN, CUU, OBUDS #### [address] Bacteria,Urine 1+ High None Seen The Pending Sale To [facility] Comment on above: Order Comment: Name Collection Type:: Clean-Voided Midstream Performed By: #### A DDONUAPLUS, FFN, CUU, OBUDS #### [address] Bilirubin,Urine Negative Normal Negative The Pending Sale To [facility] Comment on above: Order Comment: Name Collection Type:: Clean-Voided Midstream Performed By: #### A DDONUAPLUS, FFN, CUU, OBUDS #### [address] Color (U) Yellow Normal Yellow The Pending Sale To [facility] Comment on above: Order Comment: Name Collection Type:: Clean-Voided Midstream Performed By: #### A DDONUAPLUS, FFN, CUU, OBUDS #### [address] Glucose Ql (U) Normal Normal Normal The Pending Sale To [facility] Comment on above: Order Comment: Name Collection Type:: Clean-Voided Midstream Performed By: #### A DDONUAPLUS, FFN, CUU, OBUDS #### [place] [address] [place] Hyaline Casts,Urine 0-8 Normal 0-8 The Pending Sale To [facility] Comment on above: Order Comment: Name Collection Type:: Clean-Voided Midstream Result Comment: PERF ORMED BY: [place] [address] PATHOLOGIST SOLE BUFFER JAYDON WEBER M.D. Performed By: #### A DDONUAPLUS, FFN, CUU, OBUDS #### [address] Ketones Ql (U) Negative Normal Negative The Pending Sale To [facility] Comment on above: Order Comment: Name Collection Type:: Clean-Voided Midstream Performed By: #### A DDONUAPLUS, FFN, CUU, OBUDS #### [address] Leukocyte esterase Test strip Ql (U) 1+ High Negative The Pending Sale To [facility] Comment on above: Order Comment: Name Collection Type:: Clean-Voided Midstream Performed By: #### A DDONUAPLUS, FFN, CUU, OBUDS #### [address] Nitrite,Urine Negative Normal Negative The Pending Sale To [facility] Comment on above: Order Comment: Name Collection Type:: Clean-Voided Midstream Performed By: #### A DDONUAPLUS, FFN, CUU, OBUDS #### [address] Occult Blood,Urine Negative Normal Negative The Pending Sale To [facility] Comment on above: Order Comment: Name Collection Type:: Clean-Voided Midstream Result Comment: PERF ORMED BY: [place] [address] PATHOLOGIST SOLE BUFFER JAYDON WEBER M.D. Performed By: #### A DDONUAPLUS, FFN, CUU, OBUDS #### [address] pH (U) 6.5 [pH] Normal 5.0-9.0 [facility] Comment on above: Order Comment: Name Collection Type:: Clean-Voided Midstream Performed By: #### A DDONUAPLUS, FFN, CUU, OBUDS #### [place] [address] [place] Protein,Urine Negative Normal Negative [facility] Comment on above: Order Comment: Name Collection Type:: Clean-Voided Midstream Performed By: #### A DDONUAPLUS, FFN, CUU, OBUDS #### [address] RBC,Urine None Seen Normal 0-4 The [facility] Comment on above: Order Comment: Name Collection Type:: Clean-Voided Midstream Performed By: #### A DDONUAPLUS, FFN, CUU, OBUDS #### [address] Specificy [place],Urine 1.010 Normal 1.001-1.030 The [facility]ending [facility] Comment on above: Order Comment: Name Collection Type:: Clean-Voided Midstream Performed By: #### A DDONUAPLUS, FFN, CUU, OBUDS #### [address] Squamous Epithelial Cell,Urine 3-4 High 0-2 The [facility] Comment on above: Order Comment: Name Collection Type:: Clean-Voided Midstream Performed By: #### A DDONUAPLUS, FFN, CUU, OBUDS #### [address] Urobilinogen,Urine Normal Normal Normal The [facility] Comment on above: Order Comment: Name Collection Type:: Clean-Voided Midstream Performed By: #### A DDONUAPLUS, FFN, CUU, OBUDS #### [address] WBC,Urine 5-9 High 0-4 The [facility] Comment on above: Order Comment: Name Collection Type:: Clean-Voided Midstream Performed By: #### A DDONUAPLUS, FFN, CUU, OBUDS #### [address] Fibronectinon 05-24-19 Fibronectin Negative Normal Negative The [facility] Comment on above: Order Comment: Comme nt patients 22 - 34 6/7 weeks prior to vaginal exam Result Comment: PERF ORMED BY: [place] [address] PATHOLOGIST SOLE BUFFER JAYDON WEBER M.D. Performed By: #### O BUDS, CUU, ADDONUAPLUS #### [facility] [address] fibronectinOrdered By: Chuck Monroe on 05-24-2023 Fibronectin. (Vag fld) [Mass/Vol] Negative Negative [facility] Fibronectin. Ql (Vag fl d)on 05-24-2023 FIBRONECTIN Negative Negative [facility] Comment patients 22 - 34 6/7 weeks prior to vaginal exam [facility] Ketones Auto test strip (U) [Mass/Vol]Ordered By: Chuck Monroe on 05-24-2023 Ketones (U) [Mass/Vol] Negative Negative [facility] - UrinalysisOrder ed By: Chuck Monroe on 05-24-2023 Hyaline casts LM Ql (Urine sed) 0-8 [LPF] 0-8 [facility] Nitrite Test strip Ql (U)Ord ered By: Chuck Monroe on 05-24-2023 Nitrite Ql (U) Negative Negative [facility] OB Urine Drug Screen (NO THC )on 05-24-2023 Amphetamine Screen,Urine Negative Normal Negative The [facility] Comment on above: Performed By: #### A DDONUAPLUS, FFN, CUU, OBUDS #### [facility] [address] [place] [address] [place] Barbiturate Screen,Urine Negative Normal Negative The [facility] Comment on above: Performed By: #### A DDONUAPLUS, FFN, CUU, OBUDS #### [facility] [address] [place] [address] [place] Benzodiazepines Screen,Urine Negative Normal Negative The [facility] Comment on above: Performed By: #### A DDONUAPLUS, FFN, CUU, OBUDS #### [facility] [address] [place] [address] [place] Cocaine Screen,Urine Negative Normal Negative The [facility]ending [facility] Comment on above: Performed By: #### A DDONUAPLUS, FFN, CUU, OBUDS #### [facility] [address] [place] [address] [place] Opiate Screen,Urine Negative Normal Negative The [facility] Comment on above: Performed By: #### A DDONUAPLUS, FFN, CUU, OBUDS #### [facility] [address] Phencyclidine Screen, Urine Negative Normal Negative The [facility] Comment on above: Result Comment: Thes e are unconfirmed results and should not be used for legal purposes. Drug Cut-Off Concentration: AMPH 1000 ng/mL LEDA 200 ng/mL ERIC 200 ng/mL COCM 300 ng/mL OP 300 ng/mL PCP 25 ng/mL PERFORMED BY: [facility] [address] [place] [address] PATHOLOGIST SOLE BUFFER JYADON WEBER M.D. Performed By: #### A CASSIUAPLUS, FFN, CUU, OBUDS #### [facility] [address] Opiates [Presence] in Urine by Screen methodOrdered By: Chuck Monroe on 05-24-2023 Opiates Screen Ql (U) Negative Negative [facility] Phencyclidine Screen Ql (U)O rdered By: Chuck Monroe on 05-24-2023 Phencyclidine Ql (U) Negative Negative [facility] Comment on above: These are unconfirme d results and should not be used for legal purposes. Drug Cut-Off Concentration: AMPH 1000 ng/mL LEDA 200 ng/mL ERIC 200 ng/mL COCM 300 ng/mL OP 300 ng/mL PCP 25 ng/mL Protein Auto test strip (U) [Mass/Vol]Ordered By: Chuck Monroe on 05-24-2023 Protein (U) [Mass/Vol] Negative Negative [facility] Specific gravity Auto test s trip (U) [Rel density]Ordered By: Chuck Monroe on 05-24-2023 Specific gravity (U) [Rel density] 1.010 1.001-1.030 [facility] Squamous epithelial cells de tection in urine sediment by light microscopyOrdered By: Chuck Monroe on 05-24-2023 Epithelial cells.squamous LM Ql (Urine sed) 3-4 [HPF] 0-2 [facility] Urinalysis complete panel (U )on 05-24-2023 Appearance (U) Clear Clear [facility] BILIRUBIN,URINE Negative Negative [facility] Color (U) Yellow Yellow [facility] Glucose Ql (U) Normal Normal [facility] Interpretation and review of laboratory results Abnormal [facility] Ketones Ql (U) Negative Negative [facility] Leukocyte esterase Test strip Ql (U) 1+ High Negative [facility] NITRITE,URINE Negative Negative [facility] OCCULT BLOOD,URINE Negative Negative [facility] pH (U) 6.5 [pH] 5.0 - 9.0 [facility] PROTEIN,URINE Negative Negative [facility] Healthcare SPECIFICY GRAVITY,URINE 1.010 1.00 1 - 1.030 [facility] UROBILINOGEN,URINE Normal Normal [facility] Healthcare Name Collection Type :: Clean-Voided Midstream [facility] Urine Cultureon 05-24-2023 Bacteria identified Cx Nom (U) 20,000 colonies/ml mixed bacterial skin contaminants 2 Days PERFORMED BY: [place] [address] PATHOLOGIST SOLE BUFFER JAYDON WEBER M.D. Jeffrey The [facility]ending [facility] Comment on above: Performed By: #### [place]MA [place] ADDONUAPLUS #### [address] Urine bacteria detection by automated methodOrdered By: Chuck Monroe on 05-24-2023 Bacteria Auto Ql (U) 1+ None Seen [facility] Urine clarity by refractomet ry automatedOrdered By: Chuck Monroe on 05-24-2023 Clarity Refractometry automated (U) Clear Clear [facility] Urine culture routineOrdered By: Chuck Monroe on 05-24-2023 Bacteria identified Cx Nom (U) 2 Days [facility] Urine glucose measurement by automated test strip (mass/volume)Ordered By: Chuck Monroe on 05-24-2023 Glucose Auto test strip (U) [Mass/Vol] Normal mg/dL Normal [facility] Urine hemoglobin detection b y automated test stripOrdered By: Chuck Monroe on 05-24-2023 Hemoglobin Auto test strip Ql (U) Negative Negative [facility] Urine leukocyte esterase det ection by automated test stripOrdered By: Chuck Monroe on 05-24-2023 Leukocyte esterase Auto test strip Ql (U) 1+ Negative [facility] Urobilinogen Auto test strip (U) [Mass/Vol]Ordered By: Chuck Monroe on 05-24-2023 Urobilinogen (U) [Mass/Vol] Normal mg/dL Normal [facility] pH Auto test strip (U)Ordere d By: Chuck Monroe on 05-24-2023 pH (U) 6.5 [pH] 5.0-9.0 [facility] Urine culture routineOrdered By: Chuck Monroe on 05-23-2023 Bacteria identified Cx Nom (U) 2 Days [facility] Basic Metabolic Panelon 12-17 Creatinine Clr Calc Pharmacy 138.16 Normal The [facility] Comment on above: Result Comment: PERF ORMED BY: [place] [address] PATHOLOGIST SOLE BUFFER JAYDON WEBER M.D. Performed By: #### C USTB #### [address] GFR/1.73 sq M.predicted MDRD (S/P/Bld) [Vol rate/Area] mL/min/{1.73_m2} Normal The [facility] Comment on above: Performed By: #### C USTB #### [address] Complete Blood Count Auto Di ffon 01-12-2023 Mean Corpuscular HGB Conc 35.1 g/dL High 32.0-35.0 The [facility]ending [facility] Comment on above: Performed By: #### C USTB #### [place] [address] [place] Monocytes/100 WBC (Bld) 16.88 % Normal 0.00-20.00 T he Pending [facility] To [facility] Comment on above: Performed By: #### C USTB #### [place] [address] [place] NRBC% 0.1 /100{WBC} Normal 0-0.5 The [facility]ending [facility] Comment on above: Performed By: #### C USTB #### [place] [address] [place] Dipstick and Microscopicon 0 01-12-2023 Appearance (U) Cloudy Critically abnormal Clear [facility] Comment on above: Order Comment: Name Collection Type:: Clean-Voided Midstream Performed By: #### O BUDS, CUU, ADDONUAPLUS #### [facility] [address] [place] [address] [place] Bacteria,Urine 2+ High None Seen The [facility] Comment on above: Order Comment: Name Collection Type:: Clean-Voided Midstream Performed By: #### O BUDS, CUU, ADDONUAPLUS #### [place] [address] [place] Bilirubin,Urine Negative Normal Negative The [facility] Comment on above: Order Comment: Name Collection Type:: Clean-Voided Midstream Performed By: #### O BUDS, CUU, ADDONUAPLUS #### [place] [address] [place] Calcium Oxalate Crystals,Urine 2+ Normal The [facility]ending [facility] Comment on above: Order Comment: Name Collection Type:: Clean-Voided Midstream Performed By: #### O BUDS, CUU, ADDONUAPLUS #### [place] [address] [place] Color (U) Yellow Normal Yellow The [facility] Comment on above: Order Comment: Name Collection Type:: Clean-Voided Midstream Performed By: #### O BUDS, CUU, ADDONUAPLUS #### [place] [address] [place] Glucose Ql (U) Normal Normal Normal The [facility] Comment on above: Order Comment: Name Collection Type:: Clean-Voided Midstream Performed By: #### O BUDS, CUU, ADDONUAPLUS #### [place] [address] [place] Hyaline Casts,Urine None Seen Normal 0-1 The [facility]ending [facility] Comment on above: Order Comment: Name Collection Type:: Clean-Voided Midstream Performed By: #### O BUDS, CUU, ADDONUAPLUS #### [place] [address] [place] Ketones Ql (U) 3+ High Negative The [facility] Comment on above: Order Comment: Name Collection Type:: Clean-Voided Midstream Performed By: #### O BUDS, CUU, ADDONUAPLUS #### [address] Leukocyte esterase Test strip Ql (U) 2+ High Negative The [facility]ending [facility] Comment on above: Order Comment: Name Collection Type:: Clean-Voided Midstream Performed By: #### O BUDS, CUU, ADDONUAPLUS #### [address] Nitrite,Urine Negative Normal Negative The [facility] Comment on above: Order Comment: Name Collection Type:: Clean-Voided Midstream Performed By: #### O BUDS, CUU, ADDONUAPLUS #### [address] Occult Blood,Urine Negative Normal Negative The [facility]ending [facility] Comment on above: Order Comment: Name Collection Type:: Clean-Voided Midstream Result Comment: PERF ORMED BY: [place] [address] PATHOLOGIST SOLE BUFFER JAYDON WEBER M.D. Performed By: #### O BUDS, CUU, ADDONUAPLUS #### [address] Othe Crystals,Urine None Seen Normal The [facility] Comment on above: Order Comment: Name Collection Type:: Clean-Voided Midstream Performed By: #### O BUDS, CUU, ADDONUAPLUS #### [address] Other Casts,Urine None Seen Normal None Seen The [facility] Comment on above: Order Comment: Name Collection Type:: Clean-Voided Midstream Result Comment: PERF ORMED BY: [place] [address] PATHOLOGIST SOLE BUFFER JAYDON WEBER M.D. Performed By: #### O BUDS, CUU, ADDONUAPLUS #### [address] pH (U) 5.5 [pH] Normal 5.0-9.0 The [facility]ending [facility] Comment on above: Order Comment: Name Collection Type:: Clean-Voided Midstream Performed By: #### O BUDS, CUU, ADDONUAPLUS #### [address] Protein,Urine Trace High Negative The [facility]ending [facility] Comment on above: Order Comment: Name Collection Type:: Clean-Voided Midstream Performed By: #### O BUDS, CUU, ADDONUAPLUS #### [address] RBC,Urine 5-9 High 0-4 The [facility]ending [facility] Comment on above: Order Comment: Name Collection Type:: Clean-Voided Midstream Performed By: #### O BUDS, CUU, ADDONUAPLUS #### [address] Specificy [place],Urine 1.030 Normal 1.001-1.030 The [facility]ending [facility] Comment on above: Order Comment: Name Collection Type:: Clean-Voided Midstream Performed By: #### O BUDS, CUU, ADDONUAPLUS #### [address] Squamous Epithelial Cell,Urine 10-19 High 0-2 The [facility]ending [facility] Comment on above: Order Comment: Name Collection Type:: Clean-Voided Midstream Performed By: #### O BUDS, CUU, ADDONUAPLUS #### [address] Urobilinogen,Urine Normal Normal Normal The [facility]ending [facility] Comment on above: Order Comment: Name Collection Type:: Clean-Voided Midstream Performed By: #### O BUDS, CUU, ADDONUAPLUS #### [place] [address] [place] WBC,Urine 20-49 High 0-4 The [facility]ending [facility] Comment on above: Order Comment: Name Collection Type:: Clean-Voided Midstream Performed By: #### O BUDS, CUU, ADDONUAPLUS #### [address] Urine Cultureon 01-12-2023 Bacteria identified Cx Nom (U) >100,000 colonies/ml mixed bacterial skin contaminants 2 Days PERFORMED BY: [place] [address] PATHOLOGIST SOLE BUFFER JAYDON WEBER M.D. Normal The [facility]ending [facility] Comment on above: Performed By: #### O BUDS, CUU, ADDONUAPLUS #### [address] Automated basophil %Ordered By: Jadon Shaw on 01-11-2023 Basophils/100 WBC (Bld) 0.8 % Normal . [facility] Comment on above: Performed By: #### C USTB #### [address] Automated basophil countOrde red By: Jadon Shaw on 01-11-2023 Basophils (Bld) [#/Vol] 0.1 10*3/uL Normal 0.0-0.2 [facility] Comment on above: Result Comment: PERF ORMED BY: [place] [address] PATHOLOGIST SOLE BUFFER JAYDON WEBER M.D. Performed By: #### C USTB #### [address] Automated blood monocyte cou ntOrdered By: Jadon Shaw on 01-11-2023 Monocytes (Bld) [#/Vol] 0.7 10*3/uL Normal 0.0-0.8 [facility] Comment on above: Performed By: #### C USTB #### [address] Automated eosinophil %Ordere d By: Jadon Shaw on 01-11-2023 Eosinophils/100 WBC (Bld) 0.9 % Normal . [facility] Comment on above: Performed By: #### C USTB #### [address] Automated eosinophil countOr dered By: Jadon Shaw on 01-11-2023 Eosinophils (Bld) [#/Vol] 0.1 10*3/uL Normal 0.0-0.45 [facility] Comment on above: Performed By: #### C USTB #### [facility] [address] Automated erythrocytes count in urine sediment (number/area)Ordered By: Jadon Shaw on 01-11-2023 RBC Auto (Urine sed) [#/Area] 5-9 [HPF] 0-4 [facility] Automated leukocytes count i n urine sediment (number/area)Ordered By: Jadon Shaw on 01-11-2023 WBC Auto (Urine sed) [#/Area] 20-49 [HPF] 0-4 [facility] Automated monocyte %Ordered By: Jadon Shaw on 01-11-2023 Monocytes/100 WBC (Bld) 5.9 % Normal . [facility] Comment on above: Performed By: #### C USTB #### [facility] [address] Automated neutrophil %Ordere d By: Jadon Shaw on 01-11-2023 Neutrophils/100 WBC (Bld) 72.2 % Normal . [facility] Comment on above: Performed By: #### C USTB #### [address] Bilirubin Test strip Ql (U)O rdered By: Jadon Shaw on 01-11-2023 Bilirubin Ql (U) Negative Negative [facility] Calcium [Mass/volume] in Ser um or PlasmaOrdered By: Jadon Shaw on 01-11-2023 Calcium [Mass/Vol] 9.6 mg/dL Normal 8.6-10.3 [facility] Comment on above: Performed By: #### C USTB #### [facility] [address] Carbon dioxide, total [Moles /volume] in Serum or PlasmaOrdered By: Jadon Shaw on 01-11-2023 CO2 [Moles/Vol] 24.3 mmol/L Normal 21.0-31.0 [facility] Comment on above: Performed By: #### C USTB #### [place] [address] [place] Chloride [Moles/volume] in S itzel or PlasmaOrdered By: Jadon Shaw on 01-11-2023 Chloride [Moles/Vol] 109 mmol/L High 98-107 [facility] Comment on above: Performed By: #### C USTB #### [address] Color Auto (U)Ordered By: Karen Shaw on 01-11-2023 Color (U) Yellow Yellow [facility] Creatinine [Mass/volume] in Serum or PlasmaOrdered By: Jadon Shaw on 01-11-2023 Creatinine [Mass/Vol] 0.61 mg/dL Normal 0.60-1.20 [facility] Comment on above: Performed By: #### C USTB #### [address] Erythrocyte distribution wid th [Ratio] by Automated countOrdered By: Jadon Shaw on 01-11-2023 Erythrocyte distribution width (RBC) [Ratio] 12.8 % Normal 11.9-15.3 [facility] Comment on above: Performed By: #### C USTB #### [address] Erythrocytes [#/volume] in B lood by Automated countOrdered By: Jadon Shaw on 01-11-2023 RBC (Bld) [#/Vol] 4.48 10*6/uL Normal 3.60-5.00 [facility] Comment on above: Performed By: #### C USTB #### [address] Glucose [Mass/volume] in Ser um or PlasmaOrdered By: Jadon Shaw on 01-11-2023 Glucose [Mass/Vol] 79 mg/dL Normal 70-100 [facility] Comment on above: ADA recommended refe rence rangeRandom Glucose Reference Range is dependent on time and content of last meal. Glucose of more than 200 mg/dL in a nonstressed, ambulatory subject supports the diagnosis of Diabetes Mellitus. Result Comment: [place] Glucose Reference Range is dependent on time and content of last meal. Glucose of more than 200 mg/dL in a nonstressed, ambulatory subject supports the diagnosis of Diabetes Mellitus. ADA recommended reference range Performed By: #### C USTB #### [address] Hematocrit [Volume Fraction] of Blood by Automated countOrdered By: Jadon Shaw on 01-11-2023 Hematocrit (Bld) [Volume fraction] 37.8 % Normal 34.0-46.4 [facility] Comment on above: Performed By: #### C USTB #### [address] Hemoglobin [Mass/volume] in BloodOrdered By: Jadon Shaw on 01-11-2023 Hemoglobin (Bld) [Mass/Vol] 13.3 g/dL Normal 11.8-15.4 [facility] Comment on above: Performed By: #### C USTB #### [address] Ketones Auto test strip (U) [Mass/Vol]Ordered By: Jadon Shaw on 01-11-2023 Ketones (U) [Mass/Vol] 3+ Negative [facility] Leukocytes [#/volume] correc oren for nucleated erythrocytes in Blood by Automated counOrdered By: Jadon Shaw on 01-11-2023 WBC corrected for nucl RBC Auto (Bld) [#/Vol] 11.2 10*3/uL 3.8-11.6 [facility] Leukocytes [#/volume] in Blo od by Automated countOrdered By: Jadon Shaw on 01-11-2023 WBC (Bld) [#/Vol] 11.2 10*3/uL Normal 3.8-11.6 [facility] Comment on above: Performed By: #### C USTB #### [place] [address] [place] Lymphocytes [#/volume] in Bl ood by Automated countOrdered By: Jadon Shaw on 01-11-2023 Lymphocytes (Bld) [#/Vol] 2.3 10*3/uL Normal 1.00-4.8 [facility] Comment on above: Performed By: #### C USTB #### [place] [address] [place] Lymphocytes/100 leukocytes i n Blood by Automated countOrdered By: Jadon Shaw on 01-11-2023 Lymphocytes/100 WBC (Bld) 20.2 % Normal . [facility] Comment on above: Performed By: #### C USTB #### [facility] [address] MCH [Entitic mass] by Automa oren countOrdered By: Jadon Shaw on 01-11-2023 MCH (RBC) [Entitic mass] 29.6 pg Normal 24.7-34.3 [facility] Comment on above: Performed By: #### C USTB #### [address] MCHC Auto (RBC) [Mass/Vol]Or dered By: Jadon Shaw on 01-11-2023 MCHC (RBC) [Mass/Vol] 35.1 g/dL 32.0-35.0 [facility] MCV [Entitic volume] by Auto mated countOrdered By: Jadon Shaw on 01-11-2023 MCV (RBC) [Entitic vol] 84.4 fL Normal 80-100 [facility] Comment on above: Performed By: #### C USTB #### [address] Monocyte distribution width [Entitic volume] in Blood by AutomatedOrdered By: Jadon Shaw on 01-11-2023 Monocyte distribution width Auto (Bld) [Entitic vol] 16.88 % 0.00-20.00 [facility] Neutrophils [#/volume] in Bl ood by Automated countOrdered By: Jadon Shaw on 01-11-2023 Neutrophils (Bld) [#/Vol] 8.1 10*3/uL High 1.8-7.7 [facility] Comment on above: Performed By: #### C USTB #### [address] Nitrite Test strip Ql (U)Ord ered By: Jadon Shwa on 01-11-2023 Nitrite Ql (U) Negative Negative [facility] No Panel InformationOrdered By: Jadon Shaw on 01-11-2023 Estimated GFR (CKD-EPI) > 60.0 mL/Min [facility] Creatinine Clearance (Chem 138.16 [facility] Nucleated erythrocytes [Pres ence] in Blood by Automated countOrdered By: Jadon Shaw on 01-11-2023 Nucleated RBC Auto Ql (Bld) 0.1 /100{WBC} 0-0.5 [facility] Platelet mean volume [Entiti c volume] in Blood by Automated countOrdered By: Jadon Shaw on 01-11-2023 Platelet mean volume (Bld) [Entitic vol] 9.3 fL Normal 6.3-10.7 [facility] Comment on above: Performed By: #### C USTB #### [facility] [address] [place] [address] [place] Platelets [#/volume] in Bloo d by Automated countOrdered By: Jadon Shaw on 01-11-2023 Platelets (Bld) [#/Vol] 195 10*3/uL Normal 150-450 [facility] Comment on above: Performed By: #### C USTB #### [place] [address] [place] Potassium [Moles/volume] in Serum or PlasmaOrdered By: Jadon Shaw on 01-11-2023 Potassium [Moles/Vol] 3.5 mmol/L Normal 3.5-5.1 [facility] Comment on above: Performed By: #### C USTB #### [address] Protein Auto test strip (U) [Mass/Vol]Ordered By: Jadon Shaw on 01-11-2023 Protein (U) [Mass/Vol] Trace mg/dL Negative [facility] Serum or plasma anion gap de terminationOrdered By: Jadon Shaw on 01-11-2023 Anion gap [Moles/Vol] 3.2 mmol/L Low 6.0-15.0 [facility] Comment on above: Performed By: #### C USTB #### [place] [address] [place] Sodium [Moles/volume] in Ser um or PlasmaOrdered By: Jadon Shaw on 01-11-2023 Sodium [Moles/Vol] 133 mmol/L Low 136-145 [facility] Comment on above: Performed By: #### C USTB #### [facility] [address] [place] [id number] [facility] Specific gravity Auto test s trip (U) [Rel density]Ordered By: Jadon Shaw on 01-11-2023 Specific gravity (U) [Rel density] 1.030 1.001-1.030 [facility] Squamous epithelial cells de tection in urine sediment by light microscopyOrdered By: Jadon Shaw on 01-11-2023 Epithelial cells.squamous LM Ql (Urine sed) 10-19 [HPF] 0-2 [facility] Urea nitrogen [Mass/volume] in Serum or PlasmaOrdered By: Jadon Shaw on 01-11-2023 Urea nitrogen [Mass/Vol] 9 mg/dL Normal 7-25 [facility] Comment on above: Performed By: #### C USTB #### [facility] [address] Urine bacteria detection by automated methodOrdered By: Jadon Shaw on 01-11-2023 Bacteria Auto Ql (U) 2+ None Seen [facility] Urine clarity by refractomet ry automatedOrdered By: Jadon Shaw on 01-11-2023 Clarity Refractometry automated (U) Cloudy Clear [facility] Urine glucose measurement by automated test strip (mass/volume)Ordered By: Jadon Shaw on 01-11-2023 Glucose Auto test strip (U) [Mass/Vol] Normal mg/dL Normal [facility] Urine hemoglobin detection b y automated test stripOrdered By: Jadon Shaw on 01-11-2023 Hemoglobin Auto test strip Ql (U) Negative Negative [facility] Urine leukocyte esterase det ection by automated test stripOrdered By: Jadon Shaw on 01-11-2023 Leukocyte esterase Auto test strip Ql (U) 2+ Negative [facility] Urobilinogen Auto test strip (U) [Mass/Vol]Ordered By: Jadon Shaw on 01-11-2023 Urobilinogen (U) [Mass/Vol] Normal mg/dL Normal [facility] pH Auto test strip (U)Ordere d By: Jadon Shaw on 01-11-2023 pH (U) 5.5 [pH] 5.0-9.0 [facility] Chlamydia/GC/Trich NAAon Chlamydia Trachomotis, NICHOLAS Negative Normal Negative [facility] Comment on above: Performed By: #### O BUDSHUYU, ADDONUAPLUS #### [address] Neisseria Gonorrhoeae, NICHOLAS Negative Normal Negative [facility] Comment on above: Performed By: #### O BUDS CUU, ADDONUAPLUS #### [address] Trichomonas NICHOLAS Negative Normal Negative [facility] Comment on above: Result Comment: Perf ormed at: = - [facility] [id number] [employer] Supervisor: Dania Montgomery MD, Phone: [phone] PERFORMED BY: [place] [address] PATHOLOGIST SOLE BUFFER JAYDON WEBER M.D. Performed By: #### O HUY CALVILLOU, ADDONUAPLUS #### [address] Complete Blood Count Auto Di ffon 09-03-2022 Basophils (Bld) [#/Vol] 0.0 10*3/uL Normal 0.0-0.1 [facility] Comment on above: Result Comment: PERF ORMED BY: [place] [address] PATHOLOGIST SOLE BUFFER JAYDON WEBER M.D. Performed By: #### O BUDS, CUU, ADDONUAPLUS #### [place] [address] [place] Basophils/100 WBC (Bld) 0.6 % Normal . T he [facility]ending [facility] Comment on above: Performed By: #### O BUDS, CUU, ADDONUAPLUS #### [place] [address] [place] Eosinophils (Bld) [#/Vol] 0.0 10*3/uL Normal 0.0-0.7 [facility] Comment on above: Performed By: #### O BUDS, CUU, ADDONUAPLUS #### [address] Eosinophils/100 WBC (Bld) 0.5 % Normal . [facility] Comment on above: Performed By: #### O BUDS, CUU, ADDONUAPLUS #### [address] Erythrocyte distribution width (RBC) [Ratio] 13.4 % Normal 11.9-15.3 [facility] Comment on above: Performed By: #### O BUDS, CUU, ADDONUAPLUS #### [address] Hematocrit (Bld) [Volume fraction] 41.9 % Normal 36.0-46.0 [facility] Comment on above: Performed By: #### O BUDS, CUU, ADDONUAPLUS #### [address] Hemoglobin (Bld) [Mass/Vol] 14.2 g/dL Normal 12.0-16.0 [facility] Comment on above: Performed By: #### O BUDS, CUU, ADDONUAPLUS #### [address] Lymphocytes (Bld) [#/Vol] 2.7 10*3/uL Normal 1.20-4.8 [facility] Comment on above: Performed By: #### O BUDS, CUU, ADDONUAPLUS #### [address] Lymphocytes/100 WBC (Bld) 30.2 % Normal . The [facility] Comment on above: Performed By: #### O BUDS, CUU, ADDONUAPLUS #### [address] MCH (RBC) [Entitic mass] 29.1 pg Normal 25.0-35.0 The [facility] Comment on above: Performed By: #### O BUDS, CUU, ADDONUAPLUS #### [place] [id number] [place] MCV (RBC) [Entitic vol] 85.8 fL Normal 78-102 [facility] Comment on above: Performed By: #### O BUDS, CUU, ADDONUAPLUS #### [address] Mean Corpuscular HGB Conc 33.9 g/dL Normal 31.0-37.0 The [facility]ending [facility] Comment on above: Performed By: #### O BUDS, CUU, ADDONUAPLUS #### [place] [address] [place] Monocytes (Bld) [#/Vol] 0.7 10*3/uL Normal 0.1-1.00 The [facility] Comment on above: Performed By: #### O BUDS, CUU, ADDONUAPLUS #### [address] Monocytes/100 WBC (Bld) 16.32 % Normal 0.00-20.00 [facility] Comment on above: Performed By: #### O BUDS, CUU, ADDONUAPLUS #### [place] [address] [place] Monocytes/100 WBC (Bld) 8.3 % Normal . [facility] Comment on above: Performed By: #### O BUDS, CUU, ADDONUAPLUS #### [address] Neutrophils (Bld) [#/Vol] 5.4 10*3/uL Normal 1.2-7.7 The [facility] Comment on above: Performed By: #### O BUDS, CUU, ADDONUAPLUS #### [place] [address] [place] Neutrophils/100 WBC (Bld) 60.4 % Normal . The [facility]ending [facility] Comment on above: Performed By: #### O BUDS, CUU, ADDONUAPLUS #### [place] [address] [place] NRBC% 0.1 /100{WBC} Normal 0-0.5 The [facility]ending [facility] Comment on above: Performed By: #### O BUDS, CUU, ADDONUAPLUS #### [address] Platelet mean volume (Bld) [Entitic vol] 9.9 fL Normal 6.3-10.7 The [facility]ending [facility] Comment on above: Performed By: #### O BUDS, CUU, ADDONUAPLUS #### [address] Platelets (Bld) [#/Vol] 227 10*3/uL Normal 150-450 The [facility] Comment on above: Performed By: #### O BUDS, CUU, ADDONUAPLUS #### [address] RBC (Bld) [#/Vol] 4.89 10*6/uL Normal 4.10-5.10 The [facility] Comment on above: Performed By: #### O BUDS, CUU, ADDONUAPLUS #### [address] WBC (Bld) [#/Vol] 8.9 10*3/uL Normal 4.5-13.5 The [facility] Comment on above: Performed By: #### O BUDS, CUU, ADDONUAPLUS #### [address] Comprehensive Metabolic Pane kristy 09-03-2022 Albumin [Mass/Vol] 4.6 g/dL Normal 3.5-5.7 The [facility] Comment on above: Performed By: #### O BUDS, CUU, ADDONUAPLUS #### [address] Albumin/Globulin [Mass ratio] 1.9 {ratio} Normal The [facility] Comment on above: Performed By: #### O BUDS, CUU, ADDONUAPLUS #### [address] ALP [Catalytic activity/Vol] 83 U/L Normal 34-104 The [facility] Comment on above: Performed By: #### O BUDS, CUU, ADDONUAPLUS #### [facility] [address] [place] [address] ALT [Catalytic activity/Vol] 12 U/L Normal 7-52 The [facility]ending [facility] Comment on above: Performed By: #### O BUDS, CUU, ADDONUAPLUS #### [address] Anion gap [Moles/Vol] 10.2 mmol/L Normal 6.0-15.0 Th e Pending [facility] To [facility] Comment on above: Performed By: #### O BUDS, CUU, ADDONUAPLUS #### [address] AST [Catalytic activity/Vol] 15 U/L Normal 13-39 The [facility]ending [facility] Comment on above: Performed By: #### O BUDS, CUU, ADDONUAPLUS #### [address] Bilirubin [Mass/Vol] 1.0 mg/dL Normal 0.3-1.0 The [facility] Comment on above: Performed By: #### O BUDS, CUU, ADDONUAPLUS #### [place] [address] [place] Calcium [Mass/Vol] 9.4 mg/dL Normal 8.6-10.3 The [facility]ending [facility] Comment on above: Performed By: #### O BUDS, CUU, ADDONUAPLUS #### [place] [address] [place] Chloride [Moles/Vol] 109 mmol/L High 98-107 The [facility]ending [facility] Comment on above: Performed By: #### O BUDS, CUU, ADDONUAPLUS #### [facility] [address] [place] [address] [place] CO2 [Moles/Vol] 27.0 mmol/L Normal 21.0-31.0 The [facility] Comment on above: Performed By: #### O BUDS, CUU, ADDONUAPLUS #### [facility] [address] [place] [address] [place] Creatinine [Mass/Vol] 0.82 mg/dL Normal 0.60-1.20 The [facility] Comment on above: Performed By: #### O BUDS, CUU, ADDONUAPLUS #### [address] Creatinine Clr Calc Pharmacy 112.24 Normal The [facility] Comment on above: Result Comment: PERF ORMED BY: [place] [address] PATHOLOGIST SOLE BUFFER JAYDON WEBER M.D. Performed By: #### O BUDS, CUU, ADDONUAPLUS #### [place] [address] [place] GFR/1.73 sq M.predicted MDRD (S/P/Bld) [Vol rate/Area] mL/min/{1.73_m2} Normal The [facility] Comment on above: Performed By: #### O BUDS, CUU, ADDONUAPLUS #### [place] [address] [place] Globulin (S) [Mass/Vol] 2.4 g/dL Normal T he Pending [facility] Comment on above: Performed By: #### O BUDS, CUU, ADDONUAPLUS #### [address] Glucose [Mass/Vol] 88 mg/dL Normal 70-100 The [facility] Comment on above: Result Comment: [place] Glucose Reference Range is dependent on time and content of last meal. Glucose of more than 200 mg/dL in a nonstressed, ambulatory subject supports the diagnosis of Diabetes Mellitus. ADA recommended reference range Performed By: #### O BUDS, CUU, ADDONUAPLUS #### [address] Potassium [Moles/Vol] 3.2 mmol/L Low 3.5-5.1 The [facility] Comment on above: Performed By: #### O BUDS, CUU, ADDONUAPLUS #### [address] Protein [Mass/Vol] 7.0 g/dL Normal 6.4-8.9 The [facility] Comment on above: Performed By: #### O BUDS, CUU, ADDONUAPLUS #### [address] Sodium [Moles/Vol] 143 mmol/L Normal 136-145 The [facility] Comment on above: Performed By: #### O BUDS, CUU, ADDONUAPLUS #### [address] Urea nitrogen [Mass/Vol] 14 mg/dL Normal 7-25 The [facility] Comment on above: Performed By: #### O BUDS, CUU, ADDONUAPLUS #### [place] [address] [place] Dipstick and Microscopicon 0 09-03-2022 Appearance (U) Clear Normal Clear [facility] Comment on above: Order Comment: Name Collection Type:: Clean-Voided Midstream Performed By: #### O BUDS, CUU, ADDONUAPLUS #### [address] Bacteria,Urine None Seen Normal None Seen [facility] Comment on above: Order Comment: Name Collection Type:: Clean-Voided Midstream Performed By: #### O BUDS, CUU, ADDONUAPLUS #### [address] Bilirubin,Urine Negative Normal Negative [facility] Comment on above: Order Comment: Name Collection Type:: Clean-Voided Midstream Performed By: #### O BUDS, CUU, ADDONUAPLUS #### [address] Color (U) [place] Critically abnormal Yellow [facility] Comment on above: Order Comment: Name Collection Type:: Clean-Voided Midstream Performed By: #### O BUDS, CUU, ADDONUAPLUS #### [address] Glucose Ql (U) Normal Normal Normal [facility] Comment on above: Order Comment: Name Collection Type:: Clean-Voided Midstream Performed By: #### O BUDS, CUU, ADDONUAPLUS #### [address] Hyaline Casts,Urine 0-8 Normal 0-8 [facility] Comment on above: Order Comment: Name Collection Type:: Clean-Voided Midstream Performed By: #### O BUDS, CUU, ADDONUAPLUS #### [address] Ketones Ql (U) Negative Normal Negative [facility] Comment on above: Order Comment: Name Collection Type:: Clean-Voided Midstream Performed By: #### O BUDS, CUU, ADDONUAPLUS #### [address] Leukocyte esterase Test strip Ql (U) Negative Normal Negative [facility] Comment on above: Order Comment: Name Collection Type:: Clean-Voided Midstream Performed By: #### O BUDS, CUU, ADDONUAPLUS #### [address] Nitrite,Urine Negative Normal Negative [facility] Comment on above: Order Comment: Name Collection Type:: Clean-Voided Midstream Performed By: #### O BUDS, CUU, ADDONUAPLUS #### [address] Occult Blood,Urine 3+ High Negative [facility] Comment on above: Order Comment: Name Collection Type:: Clean-Voided Midstream Performed By: #### O BUDS, CUU, ADDONUAPLUS #### [address] pH (U) 6.0 [pH] Normal 5.0-9.0 The [facility] Comment on above: Order Comment: Name Collection Type:: Clean-Voided Midstream Performed By: #### O BUDS, CUU, ADDONUAPLUS #### [address] Protein,Urine Trace High Negative The [facility] Comment on above: Order Comment: Name Collection Type:: Clean-Voided Midstream Performed By: #### O BUDS, CUU, ADDONUAPLUS #### [address] RBC,Urine 10-19 High 0-4 The [facility] Comment on above: Order Comment: Name Collection Type:: Clean-Voided Midstream Performed By: #### O BUDS, CUU, ADDONUAPLUS #### [address] Specificy [place],Urine 1.010 Normal 1.001-1.030 [facility] Comment on above: Order Comment: Name Collection Type:: Clean-Voided Midstream Performed By: #### O BUDS, CUU, ADDONUAPLUS #### [address] Squamous Epithelial Cell,Urine 0-1 Normal 0-2 [facility] Comment on above: Order Comment: Name Collection Type:: Clean-Voided Midstream Performed By: #### O BUDS, CUU, ADDONUAPLUS #### [address] Urobilinogen,Urine Normal Normal Normal [facility] Comment on above: Order Comment: Name Collection Type:: Clean-Voided Midstream Performed By: #### O BUDS, CUU, ADDONUAPLUS #### [address] WBC LM.HPF (Urine sed) [#/Area] 0 /[HPF] Normal 0-4 [facility] Comment on above: Order Comment: Name Collection Type:: Clean-Voided Midstream Performed By: #### O BUDS, CUU, ADDONUAPLUS #### [address] Fungal Smearon 09-03-2022 Fungal Smear Fungus Smear Results No Yeast Like Elements Seen No Fungal Like Elements Seen Trichomonas Screen No Trichomonas Seen Trich Reference Reference range = None Seen PERFORMED BY: [place] [phone] PATHOLOGIST SOLE BUFFER JAYDON WEBER M.D. Normal [facility] Comment on above: Performed By: #### O HUY CALVILLOU, ADDONUAPLUS #### [facility] [address] [place], [place] [id number] [facility] HCG,Urineon 09-03-2022 Beta HCG ( test) Ql (U) Negative Normal [facility] Comment on above: Order Comment: Name Collection Type:: Clean-Voided Midstream Result Comment: PERF ORMED BY: [address] [place] [address] PATHOLOGIST SOLE BUFFER JAYDON WEBER M.D. Performed By: #### O HUY CALVILLOU, ADDONUAPLUS #### [place] [id number] [facility] Choriogonadotropin.beta subu nit [Units/volume] in Serum or PlasmaOrdered By: Alyson Cuello on 07-29-2022 HCG.beta subunit Qn Negative [facility] Chart Updateon 07-12-2022 Chart Update Orders ADHD, predominantly inattentive type Renew: Amphetamine-Dextroamph etamine 20 MG Oral Tablet; Take 1 tablet twice daily Rx By: Sloan Mohr; Dispense: 30 Days ; #:60 Tablet; Refill: 0;For: ADHD, predominantly inattentive type; SARAH = N;Creating [employer] Renew: Amphetamine-Dextroamph etamine 20 MG Oral Tablet; Take 1 tablet twice daily Rx By: Sloan Mohr; Dispense: 30 Days ; #:60 Tablet; Refill: 0;For: ADHD, predominantly inattentive type; SARAH = N;Creating [employer] Renew: Amphetamine-Dextroamph etamine 20 MG Oral Tablet; Take 1 tablet twice daily Rx By: Sloan Mohr; Dispense: 30 Days ; #:60 Tablet; Refill: 0;For: ADHD, predominantly inattentive type; SARAH = N;[employer] Chart Update I have personally reviewed the OARRS report. This report is saved in the electronic medical record. I have considered the risks of abuse, dependence, addiction, and diversion. Signatures Electronically signed by : Sloan Mohr MD; Jul 12 2022 5:45PM EST (Author) Normal [facility] Bilirubin Auto test strip Ql (U)Ordered By: Faizan Quintero on 01-22-2022 Bilirubin Ql (U) Negative Negative [facility] HCG ( test) IAAllegrarapi d Ql (U)Ordered By: Faizan Quintero on 01-22-2022 HCG ( test) Ql (U) Negative [facility] Ketones Auto test strip (U) [Mass/Vol]Ordered By: Faizan Quintero on 01-22-2022 Ketones (U) [Mass/Vol] Negative Negative [facility] Protein Auto test strip (U) [Mass/Vol]Ordered By: Faizan Quintero on 01-22-2022 Protein (U) [Mass/Vol] Negative Negative [facility] Urine appearanceOrdered By: Faizan Quintero on 01-22-2022 Appearance (U) Clear Clear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 discussed with your primary care physician(s) and/or pharmacist. New Medications [facility], [address], [place] [id number], [phone] tobramycin ophthalmic (tobramycin 0.3% ophthalmic solution) 2 Drops Ophthalmic 4 times a day for 7 Days. 2 gtts every 2 hours day #1, then 2 gtts every 4-6 hours day #2-7 in Both eyes. Refills: 1. Medications to Continue That Have Not Changed Other Medications albuterol (albuterol 0.083% inh solution) 2.5 Milligram Nebulized inhalation every 6 hours. amphetamine-dextroamph etamine (Adderall) 20 Milligram Oral 2 times a day. topiramate (Topamax 25 mg oral tablet) 3 tab(s) Oral 2 times a day. Visit Information Visit Diagnosis: Diagnoses This Visit Acute bacterial conjunctivitis of right eye (H10.31) UC - Eye Redness ([id number]) UC - Eye Redness ([id number]) If you received any narcotics, sedation, or any other medication that causes drowsiness for the next 24 hours, unless otherwise directed: ? Do not drive a car. ? Do not operate machinery such as power tools, lawn mowers, drills, sewing machines, or stoves ? Avoid alcoholic beverages and drugs for allergies, nerves, or sleep ? Do not make important personal or business decisions or sign any legal documents Reason for Visit: Pt's mother states that her right started to be itchy and red starting on Mon last week. Allergies: Substance Reaction Symptoms Type Comments No Known Medication Allergies Drug Vital Signs: Vitals and Measurements this Visit (last charted value for your 12/31/2018 visit) Vital Signs This Visit Temperature Oral: 36.8 DegC Peripheral Pulse Rate: 95 bpm Respiratory Rate: 20 br/min SpO2: 98 % Oxygen Therapy: Room air Measurements This Visit Height: 170.18 cm Weight: 60.33 kg Body Mass Index: 20.83 kg/m2 Problems List: Problem Onset Comments Epileptic Major Tests and Procedures: The following procedures and tests were performed during your ED visit. Laboratory Radiology Cardiology Viruses or Bacteria What?s got you sick? Antibiotics only treat bacterial infections. Viral illnesses cannot be treated with antibiotics. When an antibiotic is not prescribed, ask your healthcare professional for tips on how to relieve symptoms and feel better. Usual Cause Illness Viruses Bacteria Antibiotic Needed Cold/Runny Nose NO Bronchitis/Chest Cold (in otherwise healthy children and adults) NO Whooping Cough Yes Flu NO Strep Throat Yes Sore Throat (except strep) NO Fluid in the middle ear (otitis media with effusion) NO Urinary Tract Infection Yes Antibiotics Aren?t Always the Answer www.cdc.gov/getsmart GET SMART Know When Antibiotics Work [place].S. Department of Health and Human Services Centers for Disease Control and Prevention December 2013 [facility] Patient Handouton 12-31-2018 Patient Handout Patient Education Materials Follows:Disease Bacterial Conjunctivitis Bacterial conjunctivitis is an infection of the clear membrane that covers the white part of your eye and the inner surface of your eyelid (conjunctiva). When the blood vessels in your conjunctiva become inflamed, your eye becomes red or pink, and it will probably feel itchy. Bacterial conjunctivitis spreads very easily from person to person (is contagious). It also spreads easily from one eye to the other eye. What are the causes? This condition is caused by several common bacteria. You may get the infection if you come into close contact with another person who is infected. You may also come into contact with items that are contaminated with the bacteria, such as a face towel, contact lens solution, or eye makeup. What increases the risk? This condition is more likely to develop in people who: ? Are exposed to other people who have the infection. ? Wear contact lenses. ? Have a sinus infection. ? Have had a recent eye injury or surgery. ? Have a weak body defense system (immune system). ? Have a medical condition that causes dry eyes. What are the signs or symptoms? Symptoms of this condition include: ? Eye redness. ? Tearing or watery eyes. ? Itchy eyes. ? Burning feeling in your eyes. ? Thick, yellowish discharge from an eye. This may turn into a crust on the eyelid overnight and cause your eyelids to stick together. ? Swollen eyelids. ? Blurred vision. How is this diagnosed? Your health care provider can diagnose this condition based on your symptoms and medical history. Your health care provider may also take a sample of discharge from your eye to find the cause of your infection. This is rarely done. How is this treated? Treatment for this condition includes: ? Antibiotic eye drops or ointment to clear the infection more quickly and prevent the spread of infection to others. ? Oral antibiotic medicines to treat infections that do not respond to drops or ointments, or last longer than 10 days. ? Cool, wet cloths (cool compresses) placed on the eyes. ? Artificial tears applied 2?6 times a day. Follow these instructions at home: Medicines ? Take or apply your antibiotic medicine as told by your health care provider. Do not stop taking or applying the antibiotic even if you start to feel better. ? Take or apply vojr-xbr-xdryvbz and prescription medicines only as told by your health care provider. ? Be very careful to avoid touching the edge of your eyelid with the eye drop bottle or the ointment tube when you apply medicines to the affected eye. This will keep you from spreading the infection to your other eye or to other people. Managing discomfort ? Gently wipe away any drainage from your eye with a warm, wet washcloth or a cotton ball. ? Apply a cool, clean washcloth to your eye for 10?20 minutes, 3?4 times a day. General instructions ? Do not wear contact lenses until the inflammation is gone and your health care provider says it is safe to wear them again. Ask your health care provider how to sterilize or replace your contact lenses before you use them again. Wear glasses until you can resume wearing contacts. ? Avoid wearing eye makeup until the inflammation is gone. Throw away any old eye cosmetics that may be contaminated. ? Change or wash your pillowcase every day. ? Do not share towels or washcloths. This may spread the infection. ? Wash your hands often with soap and water. Use paper towels to dry your hands. ? Avoid touching or rubbing your eyes. ? Do not drive or use heavy machinery if your vision is blurred. Contact a health care provider if: ? You have a fever. ? Your symptoms do not get better after 10 days. Get help right away if: ? You have a fever and your symptoms suddenly get worse. ? You have severe pain when you move your eye. ? You have facial pain, redness, or swelling. ? You have sudden loss of vision. This information is not intended to replace advice given to you by your health care provider. Make sure you discuss any questions you have with your health care provider. Document Released: 04/03/2006 Document Revised: 08/11/2016 Document Reviewed: 01/14/2016 [employer] Interactive Patient Education ? 2019 [employer]. Normal [facility] Recordon 019 Urgent Care Record [facility] ? Urgent Care [address] [place] [address] PATIENT DISCHARGE INSTRUCTIONS Patient Information Name: RUPAL RUBIO Age: 13 Years Date of : 2005 Reason For Visit: UC - Eye Redness; UC - Eye Redness; RIGHT EYE REDNESS/IRRITATION Arrival Time: 12/31/2018 18:18:00 Primary Care Physician: Vernell Mckeon NP Attending Physician: Lew Dubois Comment: Visit Diagnosis: Diagnoses This Visit Acute bacterial conjunctivitis of right eye (H10.31) UC - Eye Redness ([id number]) UC - Eye Redness ([id number]) If you received any narcotics, sedation, or any other medication that causes drowsiness for the next 24 hours, unless otherwise directed: ? Do not drive a car. ? Do not operate machinery such as power tools, lawn mowers, drills, sewing machines, or stoves ? Avoid alcoholic beverages and drugs for allergies, nerves, or sleep ? Do not make important personal or business decisions or sign any legal documents With: Address: When: Vernell Mckeon [facility] [place] [address] Business (1) Comments: You have been diagnosed with rightl bacterial conjunctivitis. Begin tobramycin eyedrops as directed. This is very contagious. Wash bedding, wash hands frequently. Avoid exposure to other children for at least the next 24 hours until symptoms have resolved. If any significant blurred vision, worse in anyway return for additional medical care. Medication Information: The exam and treatment you received today in the [facility] were for an urgent problem and are not intended as complete care. It is important for you to follow up with a doctor, nurse practitioner, or physician?s nutrition assistant for ongoing care. If your symptoms become worse or you do not improve as expected and you are unable to reach your usual health care provider, you should return to the Emergency Department, we are available 24 hours a day. For those patients who have received Radiology results, the interpretation of your X-ray as given to you by our Urgent Care physician is only a preliminary report. The Radiologist will review your films and if there is a change in the diagnosis you will be notified by phone. Please make sure you have provided a working phone number so we can reach you if necessary. In the event that you had a lab culture while you were a patient in the Urgent Care, you will be notified by phone if there is a need to change your antibiotic. Please make sure you have provided a working phone number so we can reach you if necessary. [facility] has provided you with a complete list of medications post discharge. Please inform your architect marine/provider of your visit and for further instruction on these medications. Any specific questions regarding your chronic medications and dosages should be discussed with your primary care physician(s) and/or pharmacist. New Medications [facility], [address], [place] [id number], [phone] tobramycin ophthalmic (tobramycin 0.3% ophthalmic solution) 2 Drops Ophthalmic 4 times a day for 7 Days. 2 gtts every 2 hours day #1, then 2 gtts every 4-6 hours day #2-7 in Both eyes. Refills: 1. Medications to Continue That Have Not Changed Other Medications albuterol (albuterol 0.083% inh solution) 2.5 Milligram Nebulized inhalation every 6 hours. amphetamine-dextroamph etamine (Adderall) 20 Milligram Oral 2 times a day. topiramate (Topamax 25 mg oral tablet) 3 tab(s) Oral 2 times a day. Visit Information Allergies: Substance Reaction Symptoms Type Comments No Known Medication Allergies Drug Vital Signs: Vitals and Measurements this Visit (last charted value for your 12/31/2018 visit) Vital Signs This Visit Temperature Oral: 36.8 DegC Peripheral Pulse Rate: 95 bpm Respiratory Rate: 20 br/min SpO2: 98 % Oxygen Therapy: Room air Measurements This Visit Height: 170.18 cm Weight: 60.33 kg Body Mass Index: 20.83 kg/m2 Problems List: Problem Onset Comments Epileptic Patient Education Bacterial Conjunctivitis Bacterial conjunctivitis is an infection of the clear membrane that covers the white part of your eye and the inner surface of your eyelid (conjunctiva). When the blood vessels in your conjunctiva become inflamed, your eye becomes red or pink, and it will probably feel itchy. Bacterial conjunctivitis spreads very easily from person to person (is contagious). It also spreads easily from one eye to the other eye. What are the causes? This condition is caused by several common bacteria. You may get the infection if you come into close contact with another person who is infected. You may also come into contact with items that are contaminated with the bacteria, such as a face towel, contact lens solution, or eye makeup. What increases the risk? This condition is more likely to develop in people who: ? Are exposed to other people who have the infection. ? Wear contact lenses. ? Have a sinus infection. ? Have had a recent eye injury or surgery. ? Have a weak body defense system (immune system). ? Have a medical condition that causes dry eyes. What are the signs or symptoms? Symptoms of this condition include: ? Eye redness. ? Tearing or watery eyes. ? Itchy eyes. ? Burning feeling in your eyes. ? Thick, yellowish discharge from an eye. This may turn into a crust on the eyelid overnight and cause your eyelids to stick together. ? Swollen eyelids. ? Blurred vision. How is this diagnosed? Your health care provider can diagnose this condition based on your symptoms and medical history. Your health care provider may also take a sample of discharge from your eye to find the cause of your infection. This is rarely done. How is this treated? Treatment for this condition includes: ? Antibiotic eye drops or ointment to clear the infection more quickly and prevent the spread of infection to others. ? Oral antibiotic medicines to treat infections that do not respond to drops or ointments, or last longer than 10 days. ? Cool, wet cloths (cool compresses) placed on the eyes. ? Artificial tears applied 2?6 times a day. Follow these instructions at home: Medicines ? Take or apply your antibiotic medicine as told by your health care provider. Do not stop taking or applying the antibiotic even if you start to feel better. ? Take or apply jukr-hec-zffhgkx and prescription medicines only as told by your health care provider. ? Be very careful to avoid touching the edge of your eyelid with the eye drop bottle or the ointment tube when you apply medicines to the affected eye. This will keep you from spreading the infection to your other eye or to other people. Managing discomfort ? Gently wipe away any drainage from your eye with a warm, wet washcloth or a cotton ball. ? Apply a cool, clean washcloth to your eye for 10?20 minutes, 3?4 times a day. General instructions ? Do not wear contact lenses until the inflammation is gone and your health care provider says it is safe to wear them again. Ask your health care provider how to sterilize or replace your contact lenses before you use them again. Wear glasses until you can resume wearing contacts. ? Avoid wearing eye makeup until the inflammation is gone. Throw away any old eye cosmetics that may be contaminated. ? Change or wash your pillowcase every day. ? Do not share towels or washcloths. This may spread the infection. ? Wash your hands often with soap and water. Use paper towels to dry your hands. ? Avoid touching or rubbing your eyes. ? Do not drive or use heavy machinery if your vision is blurred. Contact a health care provider if: ? You have a fever. ? Your symptoms do not get better after 10 days. Get help right away if: ? You have a fever and your symptoms suddenly get worse. ? You have severe pain when you move your eye. ? You have facial pain, redness, or swelling. ? You have sudden loss of vision. This information is not intended to replace advice given to you by your health care provider. Make sure you discuss any questions you have with your health care provider. Document Released: 04/03/2006 Document Revised: 08/11/2016 Document Reviewed: 01/14/2016 [employer] Interactive Patient Education ? 2019 [employer]. Viruses or Bacteria What?s got you sick? Antibiotics only treat bacterial infections. Viral illnesses cannot be treated with antibiotics. When an antibiotic is not prescribed, ask your healthcare professional for tips on how to relieve symptoms and feel better. Usual Cause Illness Viruses Bacteria Antibiotic Needed Cold/Runny Nose NO Bronchitis/Chest Cold (in otherwise healthy children and adults) NO Whooping Cough Yes Flu NO Strep Throat Yes Sore Throat (except strep) NO Fluid in the middle ear (otitis media with effusion) NO Urinary Tract Infection Yes Antibiotics Aren?t Always the Answer www.cdc.gov/getsmart GET SMART Know When Antibiotics Work U.S. Department of Health and Human Services Centers for Disease Control and Prevention December 2013 Normal [facility] .Auto Diff 1on 12-30-2018 Auto [place] % 7 % Normal -12 [facility] Comment on above: Performed By: #### 1 [id number], [id number], 9427641, 08415752, 2178339058, 9140991, 3588479 ####[facility] (DEFAULT)[address] [place] [address] Baso Abs# 0.0 x10 Normal 0.0-0.2 [facility] Comment on above: Performed By: #### 1 [id number], [id number], 8717347, 93286751, 8836770409, 2067294, 6938018 ####[facility] (DEFAULT)[address] [place] [address] Basophils/100 WBC (Bld) 0.3 % Normal 0.2-2.0 [facility] Comment on above: Performed By: #### 1 [id number], 5488785872, 6856128, 95667728, 7105743280, 0821672, 3959428 ####[facility] (DEFAULT)[address] [place] [address] Eos Abs# 0.2 x10 Normal 0.0-0.4 [facility] Comment on above: Performed By: #### 1 [id number], 9311272704, 1256154, 92200816, 0099143355, 5214142, 0172814 ####[facility] (DEFAULT)[address] [place] [address] Eosinophils/100 WBC (Bld) 1.5 % Normal 0.9-4.0 [facility] Comment on above: Performed By: #### 1 [id number], 3295558060, 6440129, 14393666, 0377407734, 8018066, 8592430 ####[facility] (DEFAULT)[address] [place] [address] Lymphocytes (Bld) [#/Vol] 3.4 x10 High 1.3-2.9 [facility] Comment on above: Performed By: #### 1 [id number], 4805257486, 2425608, 42871233, 0098189529, 9425315, 0341482 ####[facility] (DEFAULT)[address] [place] [address] Lymphocytes/100 WBC (Bld) 35 % Normal 14-48 [facility] Comment on above: Performed By: #### 1 [id number], 1124886340, 6019923, 05842576, 6187862992, 2847213, 3383008 ####[facility] (DEFAULT)[address] [place] [address] [place] Abs# 0.6 x10 Normal 0.0-0.8 [facility] Comment on above: Performed By: #### 1 303005278, 2150256676, 5300465, 80551996, 5836576076, 9789219, 1841621 ####[facility] (DEFAULT)[address] [place] [address] Neut Abs# 5.5 x10 Normal 1.5-9.2 [facility] Comment on above: Performed By: #### 1 [id number], 3056073233, 7053489, 73498883, 3304842595, 5299623, 8512580 ####[facility] (DEFAULT)[address] [place] [address] Neutrophils/100 WBC (Bld) 57 % Normal 44-88 [facility] Comment on above: Performed By: #### 1 068620622, 1610135039, 6097630, 71086436, 3392932765, 9371460, 8671529 ####[facility] (DEFAULT)[address] [address] Acet Levelon 12-30-2018 Acetaminoph Lvl <10 Normal 10-30 [facility] Comment on above: Performed By: #### 1 [id number], 4724490082, 0348658, 79325850, 2420593226, 1924569, 5383842 ####[facility] (DEFAULT)[address] [place], [place] [address] CBC w/ Auto Diffon 9 Erythrocyte distribution width (RBC) [Ratio] 12.8 % Normal 11.5-15.0 [facility] Comment on above: Performed By: #### 1 490269653, 5387100178, 8070452, 20197633, 3440808695, 1371991, 9307665 ####[facility] (DEFAULT)[address] [place], [place] [address] Hematocrit (Bld) [Volume fraction] 41.2 % High 33.7-40.4 [facility] Comment on above: Performed By: #### 1 266043854, 7099871233, 0351043, 82864883, 7194753534, 3305115, 8631185 ####[facility] (DEFAULT)[address] [address] Hemoglobin (Bld) [Mass/Vol] 14.6 g/dL Normal 11.3-15.9 [facility] Comment on above: Performed By: #### 1 154383219, 6820035955, 0580311, 16955450, 2888358114, 3416839, 0974691 ####[facility] (DEFAULT)[address] [place] [address] Man Diff? Auto Normal [facility] Comment on above: Performed By: #### 1 [id number], 2160952603, 5791808, 08689717, 9273342032, 7038184, 8936690 ####[facility] (DEFAULT)[address] [place] [address] MCH (RBC) [Entitic mass] 30 pg Normal 24-34 [facility] Comment on above: Performed By: #### 1 910696514, 5216911000, 1033289, 87990733, 6979451749, 2057867, 2281651 ####[facility] (DEFAULT)[address] [place] [address] MCHC (RBC) [Mass/Vol] 35 g/dL Normal 26-37 [facility] Comment on above: Performed By: #### 1 086648275, 4492362801, 7904935, 25356118, 7337007141, 4547497, 1249765 ####[facility] (DEFAULT)[address] [place], [place] [address] MCV (RBC) [Entitic vol] 84 fL Normal 81-100 [facility] Comment on above: Performed By: #### 1 908429569, 8856653321, 8048102, 20227967, 9862686603, 5257427, 3545050 ####[facility] (DEFAULT)[address] [place] [address] Platelet mean volume (Bld) [Entitic vol] 11.1 fL High 6.3-10.2 [facility] Comment on above: Performed By: #### 1 999974191, 8744434825, 4709514, 98888670, 4242311374, 6906128, 2858181 ####[facility] (DEFAULT)[address] [place] [address] Platelets (Bld) [#/Vol] 245 x10 Normal 138-427 [facility] Comment on above: Performed By: #### 1 805400016, 0241648115, 2426832, 50881145, 2895366682, 0203973, 2946910 ####[facility] (DEFAULT)[address] [address] RBC (Bld) [#/Vol] 4.93 x10 Normal 3.70-5.30 [facility] Comment on above: Performed By: #### 1 109029323, 7554163337, 4238426, 23935644, 6896305437, 0262658, 0335913 ####[facility] (DEFAULT)[address] [address] WBC (Bld) [#/Vol] 9.7 x10 Normal 3.5-10.5 [facility] Comment on above: Performed By: #### 1 264409654, 6437302550, 9359731, 05768537, 9886354798, 1840250, 9661435 ####[facility] (DEFAULT)[address] [place] [address] Standardon 12-30-2018 GFR/1.73 sq M predicted among non-blacks MDRD (S/P/Bld) [Vol rate/Area] GFR not calculated for patients under 18 years of age. [facility] Comment on above: Performed By: #### 1 [id number], 0700732306, 0263143, 17552524, 4587563355, 5394556, 4086442 ####[facility] (DEFAULT)[address] [place] [address] Albumin [Mass/Vol] 4.8 g/dL Normal 3.1-4.8 [facility] Comment on above: Performed By: #### 1 689772480, 8390058017, 0043706, 50530388, 3961531934, 8176527, 2421709 ####[facility] (DEFAULT)[address] [place] [address] Albumin/Globulin [Mass ratio] 1.5 {ratio} Normal 1.4-2.6 [facility] Comment on above: Performed By: #### 1 796713829, 6738920306, 8193175, 79522636, 6904862437, 1302303, 7824808 ####[facility] (DEFAULT)[address] [address] Alk Phos 133 IU/L Normal 67-372 [facility] Comment on above: Performed By: #### 1 574356901, 7026305225, 5426329, 69476968, 9357263809, 6548842, 9869419 ####[facility] (DEFAULT)[address] [place] [address] ALT/SGPT 18.0 IU/L Normal 8.0-29.0 [facility] Comment on above: Performed By: #### 1 276189083, 3921143031, 4018043, 16970301, 9419284478, 0903390, 7970804 ####[facility] (DEFAULT)[address] [address] Anion gap [Moles/Vol] 16.0 mmol/L Normal 5.0-19.0 [facility] Comment on above: Performed By: #### 1 277603708, 0449894868, 5882268, 49559934, 4782150178, 2192939, 7699040 ####[facility] (DEFAULT)[address] [address] AST/SGOT 23 IU/L Normal 14-37 [facility] Comment on above: Performed By: #### 1 381704714, 5423423498, 1921425, 69725346, 3944826932, 8222042, 8466027 ####[facility] (DEFAULT)[address] [address] Bili Total 0.6 mg/dL Normal 0.0-2.0 [facility] Comment on above: Performed By: #### 1 394298713, 9567356638, 4055118, 60424385, 9221010190, 7991695, 7429255 ####[facility] (DEFAULT)[address] [address] Calcium [Mass/Vol] 9.6 mg/dL Normal 8.9-10.3 [facility] Comment on above: Performed By: #### 1 873941763, 1432350172, 3204247, 40881696, 9725651919, 0703420, 5341301 ####[facility] (DEFAULT)[address] [place] [address] Chloride [Moles/Vol] 107 mmol/L Normal 98-115 [facility] Comment on above: Performed By: #### 1 711863194, 6482178140, 3137874, 73330974, 3803057702, 2368179, 0434938 ####[facility] (DEFAULT)[address] [place] [address] CO2 [Moles/Vol] 24 mmol/L High 17-20 [facility] Comment on above: Performed By: #### 1 231123480, 3646886344, 7714569, 63761663, 2621797382, 6953364, 9121926 ####[facility] (DEFAULT)[address] [place] [address] Creatinine [Mass/Vol] 0.73 mg/dL Normal 0.30-1.00 [facility] Comment on above: Performed By: #### 1 895567180, 8286484357, 1152831, 97968701, 6976047250, 3125231, 7489100 ####[facility] (DEFAULT)[address] [place] [address] Globulin (S) [Mass/Vol] 3.1 g/dL Normal 1.5-4.3 [facility] Comment on above: Performed By: #### 1 013464668, 4265731848, 5700779, 66511527, 4984097250, 6298219, 0503928 ####[facility] (DEFAULT)[address] [place] [address] Glucose [Mass/Vol] 98.0 mg/dL Normal 56.0-144.0 [facility] Comment on above: Performed By: #### 1 553743635, 5560474851, 2183620, 30511489, 4085761605, 0736163, 3159721 ####[facility] (DEFAULT)[address] [place] [address] Osmolality [Osmolality] 286 mOsm/L [facility] Comment on above: Performed By: #### 1 752668259, 8380466114, 9446882, 80118206, 5020160585, 7383222, 9988839 ####[facility] (DEFAULT)[address] [place] [address] Potassium [Moles/Vol] 3.5 mmol/L Normal 3.5-5.1 [facility] Comment on above: Performed By: #### 1 431021362, 5417098992, 5915068, 70499170, 5407305649, 9525434, 2664415 ####[facility] (DEFAULT)[address] [place] [address] Protein [Mass/Vol] 7.9 g/dL Normal 6.1-8.0 [facility] Comment on above: Performed By: #### 1 093990191, 3682554928, 1526807, 36196705, 1921459412, 9692907, 7865760 ####[facility] (DEFAULT)[address] [place] [address] Sodium [Moles/Vol] 143.0 mmol/L Normal 133.0-143.0 [facility] Comment on above: Performed By: #### 1 370844093, 3874084289, 4366696, 32718164, 2195005998, 2839427, 2776846 ####[facility] (DEFAULT)[address] [place] [address] Urea nitrogen [Mass/Vol] 16 mg/dL Normal 8-26 [facility] Comment on above: Performed By: #### 1 757716154, 6988010627, 5986930, 00996610, 2386712657, 1725731, 4687542 ####[facility] (DEFAULT)[address] [place] [address] [place] [address] Urea nitrogen/Creatinine [Mass ratio] 22.0 mg/mg High 4.6-16.2 [facility] Comment on above: Performed By: #### 1 [id number], 1510837546, 4377739, 01588209, 7210265250, 8612555, 0464422 ####[facility] (DEFAULT)[address] [place] [address] ED Clinical Summaryon 2018 ED Clinical Summary [facility] - Emergency Department [address] [place] [address] ED Clinical Summary PERSON INFORMATION Name: RUPAL RUBIO Age: 13 Years Sex: FEMALE : 2005 MRN: Acct#: Visit Reason: General medical; POSS NARCOTIC CONSUMPSION, VOMITING Arrival: 12/30/2018 00:48:05 Discharge: 12/30/2018 02:07:00 LOS: 000 01:19 Check In: 12/30/2018 00:48:05 Checkout:12/30/2018 02:07:00 Address: [address] [place], [place] [address] PCP: Linda NIELSEN, Vernell Wen PROVIDER INFORMATION Provider Role Assigned Unassigned Beto Wolfe DO ED Provider 12/30/2018 01:01:14 Jann RN, Balnk Hicks ED Nurse 12/30/2018 01:04:17 VITALS INFORMATION Vital Sign Triage Latest Temperature Tympanic Temperature Temporal Artery Pulse Rate 78 bpm 78 bpm O2 Sat 98 % 98 % Respiratory Rate 14 br/min 14 br/min Blood Pressure /70 mmHg /70 mmHg MEDICAL INFORMATION Medications Given: Medication Dose Route ondansetron 4 mg PO Allergy Information: No Known Medication Allergies PHYSICIAN DOCUMENTATION DISCHARGE INFORMATION: Discharge Disposition: Home Discharge Location: PATIENT EDUCATION INFORMATION Instructions: Illegal Drug Use Information, Teen Follow-Up: With: Address: When: Vernell Mckeon [address] [place] [address] Business (1) In 2 days 01/01/2019 Comments: home lots of fluids normal activity and diet call your physician, in 2 days for recheck apt you are welcomed to return anytime T H SANJEEV< ER PHYSICIAN< H B Myrna DIAGNOSIS: Ingestion of nontoxic substance Patient Understands: Yes - Patient/family/caregiv er verbalizes understanding of instructions given Comment: [facility] ED Note - Physicianon 2018 ED Note - Physician Patient: RAJESH RUBIO Age: 13 years Sex: FEMALE : 2005 Associated Diagnoses: General medical; Ingestion of nontoxic substance Author: Beto Wolfe DO Basic Information Time seen: Date & time 12/30/2018 01:15:00. History source: Patient, mother. Arrival mode: Private vehicle. History limitation: None. History of Present Illness The patient presents with This patient presents to the emergency room in the presence of mom, for evaluation of a possible ingestion of an unknown substance from a common drink, at a local social event for high school kids. Apparently that worked was passed to the patient, that something might be in her punch sit she drank this evening. Exposure would've been prior to 2200 hrs., last night, as there was a notification around 06/05/29 that this might happen. There is no documented old alteration of the punch, there has been no other visitors for this reason. However mom states she went and got the patient at 2200, and then decided to bring the patient down here to make sure she was okay. She is acting well, but the patient has a history of past seizures and mom thought maybe she should've side have the child The patient states she is feeling fine, has had no vomiting, no diarrhea, has had no change in speech, has no change in hearing or vision, has not had any problems with urination, has not had any vomiting, or diarrhea, or urinary symptoms. There's been no fevers. The patient's had no cough or sore throat. Past medical conditions and has been seizures, the patient has not had any. On exam, she is pleasant and alert she's all dressed up, really pretty, and is entirely appropriate. Her head is normocephalic, tympanic membrane canal and pinna are normal, pupils are equal round reactive, 3.5 mm, there is no nystagmus, her breath is not suggestive of alcohol, she has no anterior or posterior or supraclavicular adenopathy, her lungs are clear, there is no expiratory wheeze or rales, she's not to, her heart rate and rhythm is regular, PMI left chest, she enjoyed listening to her own heart with the stethoscope. Her abdomen is soft, bowel sounds are normal, extremities are nonswollen and nontender. Her skin is warm and dry without petechia, her neurologic exam is 100%, and psych is normal. For the purpose of clarification, lab tests are ordered, and we are awaiting those results. . Health Status Allergies: Allergic Reactions (Selected) No Known Medication Allergies. Medications: (Selected) Inpatient Medications Ordered Zofran: 4 mg = 1 EA, PO, Once Documented Medications Documented Adderall: 20 mg, PO, BID, 0 Refill(s) Topamax 25 mg oral tablet: 75 mg, 3 tab(s), PO, BID, 0 Refill(s). Past Medical/ Family/ Social History Family history: No family history items have been selected or recorded.. Social history: Social & Psychosocial Habits Alcohol 11/14/2018 Alcohol Use: Never Substance Abuse 11/14/2018 Substance use: Never Tobacco 02/20/2017 Smoking tobacco use: Never (less than 100 in l . Problem list: Active Problems (1) Epileptic . Medical Decision Making Orders Launch Orders Laboratory: Urinalysis with Culture, if indicated Standard (Order): Urine, Stat collect, 12/30/2018 1:16 EDT, Nurse collect Triage Panel 12 (Order): Urine, Stat collect, 12/30/2018 1:16 EDT, Nurse collect, Clean Catch Test Urine 1 (Order): Urine, Stat collect, 12/30/2018 1:16 EDT, Nurse collect Pharmacy: Zofran (Order): 4 mg, PO, Once, Launch Orders Laboratory: Salicylate Level (Order): Blood, Stat collect, 12/30/2018 1:17 EDT, Lab Collect Acetaminophen Level (Order): Blood, Stat collect, 12/30/2018 1:17 EDT, Lab Collect EtOH. (Order): Blood, Stat collect, 12/30/2018 1:17 EDT, Lab Collect CMP Standard (Order): Blood, Stat collect, 12/30/2018 1:17 EDT, Lab Collect CBC w/ Auto Diff (Order): Blood, Stat collect, 12/30/2018 1:17 EDT, Lab Collect, Launch Orders Patient Care: Dietary Communication Order (Order): 12/30/2018 1:22 EDT, popsicles for everyone. Results review: Interpretation Labs unremarkable, Normal results. Reexamination/ Reevaluation Time: 12/30/2018 01:59:00 . Interventions: Patient sleeping, but easily arouseable, speech normal, no distress, she does not demonstrate drowsiness anymore than anybody would at this hour of the morning. At this point I don't find any reason to suspect a significant ingestion. This conclusion was passed to mom as well.. Impression and Plan Diagnosis Complaint of General medical (PNED [id number], Reason For Visit, Medical) Ingestion of nontoxic substance ([id number] T65.91XA, Discharge, Medical) Plan Condition: Improved. Disposition: Discharged: time 12/30/2018 01:59:00. Patient was given the following educational materials: Illegal Drug Use Information, Teen. Follow up with: Vernell Mckeon In 2 days 01/01/2019 home lots of fluids normal activity and diet call your physician, in 2 days for recheck apt you are welcomed to return anytime T H SANJEEV< ER PHYSICIAN< Kajal Norris. Counseled: Patient, Regarding diagnosis, Regarding diagnostic results, Regarding treatment plan, Regarding prescription, Patient indicated understanding of instructions. [Electronically Signed on: 12/30/2018 05:54 EDT] Beto Wolfe DO [Verified on: 12/30/2018 05:54 EDT] Beto Wolfe DO [facility] ED Note-Nursingon 12-30-2018 ED Note-Nursing Pt arrives with moth er and states she was at a dance, drank about 1/2 cup of punch, then told was told it was laced with something . Pt states it occurred around . Pt walks unassisted to restroom for urine sample. Pt then walks unassisted to ED room 7. A&Ox4. Pt states she thinks she is seeing and hearing things and kind of feels dizzy . VS stable. No distress noted. [facility] ED Patient Education Noteon 12-30-2018 ED Patient Education Note Education Materials Mental and Behavioral Health Illegal Drug Use Information, Teen Illegal drugs are chemicals and substances that are illegal to use, sell, or have (possess). Health care providers and pharmacies do not use or carry these types of drugs to treat medical problems because they can cause serious side effects and can lead to . Examples of illegal drugs include: ? Cocaine or crack. ? Meth (methamphetamine). ? Bath salts (synthetic cathinones). ? Heroin. ? LSD or acid. ? PCP. ? Ecstasy. What is drug dependence? Using illegal drugs often leads to dependence or addiction. When you use certain drugs over a long period of time, your brain chemistry changes so that you can no longer function normally without that drug. This is called drug dependence. Drug dependence can cause you to: ? Have unpleasant feelings when you stop using the drug (withdrawal). ? Be unable to play sports, have hobbies, or perform at work or school the way you used to be able to, without using the drug. Some drugs make people feel so good that they want to use the drug again and again. This is called drug addiction. People who are addicted spend a lot of time seeking out the drug so that they can get the feeling they want from it. Addiction and dependence can be very hard to overcome. How can illegal drug use and dependence affect me? Using an illegal drug only once can have a major impact on your life. It is possible to from side effects after using a drug just once. If you use an illegal drug repeatedly, you may need to take larger and larger doses of the drug to experience the feelings you want. Becoming dependent on or addicted to a drug may lead to: ? Poor performance in sports, school, and hobbies. ? Withdrawal, if you stop using the drug. ? Negative effects on your relationships and work performance. It causes others not to trust you. You may avoid or neglect relationships. ? Frequent lying and crime, such as stealing to get money for drugs. ? Behaving in ways that do not match your values. Drug addiction can also affect your future by: ? Limiting your ability to get a good job or go to college. ? Causing long-term health problems, such as tooth loss, changes in how your skin looks, heart and lung disease, and stomach problems. ? Putting you at risk for: ? Overdose. This is a dangerous situation that requires hospitalization and often leads to . ? Detention or chcf time. ? A permanent criminal record. What are the benefits of avoiding illegal drug use? Avoiding illegal drug use can: ? Keep your mind and body healthy. This can help improve your school, work, and athletic performance, and keep your brain focused on things that matter. ? Keep you from developing drug dependency or addiction. This can help you avoid negative side effects such as withdrawal and overdose. ? Help you have healthy relationships with your friends and family. ? Allow you to spend or save your money on things you would like to have, instead of using your money for drugs. ? Help you have more stable finances. Instead of using your money for drugs, you can: ? Spend it on things you would like to have. ? Save it in order to use it in the future. ? Help you avoid a permanent criminal record, penitentiary time, or chcf time. Having a clean record allows you to have more job and educational opportunities in the future. What actions can be taken? To avoid using illegal drugs: ? Find healthy ways to cope with stress, such as exercise, meditation, or spending time with friends. Talk with a trusted adult or your health care provider about how you feel and how to cope with stress. ? Spend time with people who do not use illegal drugs. If your friends use drugs, make new friends who do not use drugs. ? Instead of using drugs, do something else, like a game, hobby, or exercise. Find activities that you can do with friends instead of using illegal drugs. ? Do not be afraid to say no if someone offers you an illegal drug. Speak up about why you do not want to use drugs. You can be a positive role model for your friends and set a good example for those around you. ? Talk with a trusted adult, such as a counselor, teacher, career coach, or health care provider if you or someone you know needs help with drug dependence or addiction. Where can I get more information? You can find more information about illegal drug use, dependence, and addiction from: ? Your school staff, such as a teacher, nurse, or counselor. ? National [place] on Drug Abuse: www.teens.drugabuse.go v ? Office of National Drug Control Policy: www.abovetheinfluence. com ? Substance Abuse and Mental Health Services Administration, national helpline: 7-275-949-HELP (1914). Contact a health care provider if: ? You use illegal drugs. ? You have missed school or work to use illegal drugs. ? You have lied or stolen to get illegal drugs. ? You lose interest in things you used to enjoy, like sports or family activities. ? Your eating or sleeping habits change as a result of drug use. ? You use medicines or household products to get the same effect as a drug. This is illegal use and can become addictive as well. ? You stopped illegal drug use previously and you start actively using again (relapse). ? You want help to change your addictive behavior. Get help right away if: ? You have thoughts about hurting yourself or others. If you ever feel like you may hurt yourself or others, or have thoughts about taking your own life, get help right away. You can go to your nearest emergency department or call: ? Your local emergency services (911 in the [place] ? A suicide crisis helpline, such as the National Suicide Prevention Lifeline at . This is open 24 hours a day. Summary ? Illegal drugs are chemicals and substances that are illegal to use, sell, or possess. ? Using illegal drugs often leads to dependence or addiction. This means that you need the drug to feel normal. ? If you or someone you know uses illegal drugs, find healthy ways to cope with stress and talk to a trusted adult. This information is not intended to replace advice given to you by your health care provider. Make sure you discuss any questions you have with your health care provider. Document Released: 04/29/2016 Document Revised: 09/27/2017 Document Reviewed: 09/27/2017 [employer] Interactive Patient Education ? 2019 [employer] Normal [facility] ED Patient Summaryon 019 ED Patient Summary [facility] - Emergency Department [address] [id number] PATIENT DISCHARGE INSTRUCTIONS Patient Information Name: RUPAL RUBIO Age: 13 Years Date of : 2005 Reason For Visit: General medical; POSS NARCOTIC CONSUMPSION, VOMITING Arrival Time: 12/30/2018 00:48:05 Primary Care Physician: Vernell Mckeon NP Attending Physician: Beto Wolfe DO Comment: Visit Diagnosis: Diagnoses This Visit General medical ([id number]) Ingestion of nontoxic substance (T65.91XA) Prescription Information: If you have been given a prescription for narcotics, seek immediate medical attention if you have any difficulty breathing or any sudden status changes such as confusion and sleepiness. If you or anyone you know is experiencing suicidal thoughts, mental health, alcohol and/or drug addiction problems; contact the [facility] 07/11 Crisis Hotline -Bwdk 4HCTU ei 820320. If you received any narcotics, sedation, or any other medication that causes drowsiness for the next 24 hours, unless otherwise directed: ? Do not drive a car. ? Do not operate machinery such as power tools, lawn mowers, drills, sewing machines, or stoves ? Avoid alcoholic beverages and drugs for allergies, nerves, or sleep ? Do not make important personal or business decisions or sign any legal documents With: Address: When: Vernell Mckeon [facility] [place] [address] Business (1) In 2 days 01/01/2019 Comments: home lots of fluids normal activity and diet call your physician, in 2 days for recheck apt you are welcomed to return anytime T H SANJEEV< ER PHYSICIAN< H [facility] Medication Information: The exam and treatment you received today in the [facility] Emergency Department were for an urgent problem and are not intended as complete care. It is important for you to follow up with a doctor, nurse practitioner, or physician?s nutrition assistant for ongoing care. If your symptoms become worse or you do not improve as expected and you are unable to reach your usual health care provider, you should return to the Emergency Department, we are available 24 hours a day. For those patients who have received Radiology results, the interpretation of your X-ray as given to you by our Emergency Department physician is only a preliminary report. The Radiologist will review your films and if there is a change in the diagnosis you will be notified by phone. Please make sure you have provided a working phone number so we can reach you if necessary. In the event that you had a lab culture while you were a patient in the Emergency Department, you will be notified by phone if there is a need to change your antibiotic. Please make sure you have provided a working phone number so we can reach you if necessary. [facility] Emergency Department has provided you with a complete list of medications post discharge. Please inform your architect marine/provider of your visit and for further instruction on these medications. Any specific questions regarding your chronic medications and dosages should be discussed with your primary care physician(s) and/or pharmacist. Medications to Continue That Have Not Changed Other Medications amphetamine-dextroamph etamine (Adderall) 20 Milligram Oral 2 times a day. topiramate (Topamax 25 mg oral tablet) 3 tab(s) Oral 2 times a day. Visit Information Allergies: Substance Reaction Symptoms Type Comments No Known Medication Allergies Drug Vital Signs: Vitals and Measurements this Visit (last charted value for your 12/30/2018 visit) Vital Signs This Visit Temperature Oral: 37.0 DegC Peripheral Pulse Rate: 78 bpm Respiratory Rate: 14 br/min Systolic Blood Pressure: 124 mmHg Diastolic Blood Pressure: 70 mmHg SpO2: 98 % Oxygen Therapy: Room air Measurements This Visit Height/Length Dosin.720 cm Height/Length Estimated: 172.720 cm Weight Dosin.870 kg Weight Estimated: 59.870 kg Problems List: Problem Onset Comments Epileptic Patient Education Illegal Drug Use Information, Teen Illegal drugs are chemicals and substances that are illegal to use, sell, or have (possess). Health care providers and pharmacies do not use or carry these types of drugs to treat medical problems because they can cause serious side effects and can lead to . Examples of illegal drugs include: ? Cocaine or crack. ? Meth (methamphetamine). ? Bath salts (synthetic cathinones). ? Heroin. ? LSD or acid. ? PCP. ? Ecstasy. What is drug dependence? Using illegal drugs often leads to dependence or addiction. When you use certain drugs over a long period of time, your brain chemistry changes so that you can no longer function normally without that drug. This is called drug dependence. Drug dependence can cause you to: ? Have unpleasant feelings when you stop using the drug (withdrawal). ? Be unable to play sports, have hobbies, or perform at work or school the way you used to be able to, without using the drug. Some drugs make people feel so good that they want to use the drug again and again. This is called drug addiction. People who are addicted spend a lot of time seeking out the drug so that they can get the feeling they want from it. Addiction and dependence can be very hard to overcome. How can illegal drug use and dependence affect me? Using an illegal drug only once can have a major impact on your life. It is possible to from side effects after using a drug just once. If you use an illegal drug repeatedly, you may need to take larger and larger doses of the drug to experience the feelings you want. Becoming dependent on or addicted to a drug may lead to: ? Poor performance in sports, school, and hobbies. ? Withdrawal, if you stop using the drug. ? Negative effects on your relationships and work performance. It causes others not to trust you. You may avoid or neglect relationships. ? Frequent lying and crime, such as stealing to get money for drugs. ? Behaving in ways that do not match your values. Drug addiction can also affect your future by: ? Limiting your ability to get a good job or go to college. ? Causing long-term health problems, such as tooth loss, changes in how your skin looks, heart and lung disease, and stomach problems. ? Putting you at risk for: ? Overdose. This is a dangerous situation that requires hospitalization and often leads to . ? Detention or chcf time. ? A permanent criminal record. What are the benefits of avoiding illegal drug use? Avoiding illegal drug use can: ? Keep your mind and body healthy. This can help improve your school, work, and athletic performance, and keep your brain focused on things that matter. ? Keep you from developing drug dependency or addiction. This can help you avoid negative side effects such as withdrawal and overdose. ? Help you have healthy relationships with your friends and family. ? Allow you to spend or save your money on things you would like to have, instead of using your money for drugs. ? Help you have more stable finances. Instead of using your money for drugs, you can: ? Spend it on things you would like to have. ? Save it in order to use it in the future. ? Help you avoid a permanent criminal record, penitentiary time, or chcf time. Having a clean record allows you to have more job and educational opportunities in the future. What actions can be taken? To avoid using illegal drugs: ? Find healthy ways to cope with stress, such as exercise, meditation, or spending time with friends. Talk with a trusted adult or your health care provider about how you feel and how to cope with stress. ? Spend time with people who do not use illegal drugs. If your friends use drugs, make new friends who do not use drugs. ? Instead of using drugs, do something else, like a game, hobby, or exercise. Find activities that you can do with friends instead of using illegal drugs. ? Do not be afraid to say no if someone offers you an illegal drug. Speak up about why you do not want to use drugs. You can be a positive role model for your friends and set a good example for those around you. ? Talk with a trusted adult, such as a counselor, teacher, career coach, or health care provider if you or someone you know needs help with drug dependence or addiction. Where can I get more information? You can find more information about illegal drug use, dependence, and addiction from: ? Your school staff, such as a teacher, nurse, or counselor. ? National [place] on Drug Abuse: www.teens.drugabuse.go v ? Office of National Drug Control Policy: www.abovetheinfluence. com ? Substance Abuse and Mental Health Services Administration, national helpline: 7-792-874-ABNN (4917). Contact a health care provider if: ? You use illegal drugs. ? You have missed school or work to use illegal drugs. ? You have lied or stolen to get illegal drugs. ? You lose interest in things you used to enjoy, like sports or family activities. ? Your eating or sleeping habits change as a result of drug use. ? You use medicines or household products to get the same effect as a drug. This is illegal use and can become addictive as well. ? You stopped illegal drug use previously and you start actively using again (relapse). ? You want help to change your addictive behavior. Get help right away if: ? You have thoughts about hurting yourself or others. If you ever feel like you may hurt yourself or others, or have thoughts about taking your own life, get help right away. You can go to your nearest emergency department or call: ? Your local emergency services (911 in the [place] ? A suicide crisis helpline, such as the National Suicide Prevention Lifeline at . This is open 24 hours a day. Summary ? Illegal drugs are chemicals and substances that are illegal to use, sell, or possess. ? Using illegal drugs often leads to dependence or addiction. This means that you need the drug to feel normal. ? If you or someone you know uses illegal drugs, find healthy ways to cope with stress and talk to a trusted adult. This information is not intended to replace advice given to you by your health care provider. Make sure you discuss any questions you have with your health care provider. Document Released: 04/29/2016 Document Revised: 09/27/2017 Document Reviewed: 09/27/2017 [employer] Patient Education ? 2019 [employer] Viruses or Bacteria What?s got you sick? Antibiotics only treat bacterial infections. Viral illnesses cannot be treated with antibiotics. When an antibiotic is not prescribed, ask your healthcare professional for tips on how to relieve symptoms and feel better. Usual Cause Illness Viruses Bacteria Antibiotic Needed Cold/Runny Nose NO Bronchitis/Chest Cold (in otherwise healthy children and adults) NO Whooping Cough Yes Flu NO Strep Throat Yes Sore Throat (except strep) NO Fluid in the middle ear (otitis media with effusion) NO Urinary Tract Infection Yes Antibiotics Aren?t Always the Answer www.cdc.gov/getsmart GET SMART Know When Antibiotics Work [place].S. Department of Health and Human Services Centers for Disease Control and Prevention December 2013 Normal [facility] Ethanol.on 12-30-2018 Ethanol Level <5.0 Normal 0.0-5.0 [facility] Comment on above: Performed By: #### 2 [id number] ####[facility] (DEFAULT)[address] [place] [address] Extra Blueon 12-30-2018 Tube Collected Yes [facility] Comment on above: Performed By: #### 1 [id number] ####[facility] (DEFAULT)[address] [place] [place] [address] Test Urine U Preg Negative [facility] Comment on above: Performed By: #### 3 [id number] ####[facility] (DEFAULT)[address] [place] [id number] U Preg Internal Control Pass Normal [facility] Comment on above: Performed By: #### 3 [id number] ####[facility] (DEFAULT)[address] [place] [id number] Salicylateon 12-30-2018 Salicylate Lvl <4.0 Normal 0.0-30.0 [facility] Comment on above: Result Comment: Sali cylate ranges less than 30 mg/dL are considered to be therapeutic. Levels greater than 30 mg/dL are considered toxic and levels greater than 60 mg/dL may be lethal. Performed By: #### 1 [id number] ####[facility] (DEFAULT)[address] [id number] Triage Panel 12-30-2018 Triage Internal Control Pass [facility] Comment on above: Performed By: #### 1 [id number] ####[facility] (DEFAULT)[address] [place] [address] U Amph Scr Negative [facility] Comment on above: Performed By: #### 1 [id number] ####[facility] (DEFAULT)[address] [address] U Leda Scr Negative [facility] Comment on above: Performed By: #### 1 [id number] ####[facility] (DEFAULT)[address] [place] [address] U Benzodia Scr Negative [facility] Comment on above: Performed By: #### 1 [id number] ####[facility] (DEFAULT)[address] [place] [address] U Cannab Scrn Negative [facility] Comment on above: Performed By: #### 1 [id number] ####[facility] (DEFAULT)[address] [place] [address] U Cocaine Scr Negative [facility] Comment on above: Performed By: #### 1 [id number] ####[facility] (DEFAULT)[address] [place] [address] U Methadone Scr Negative Normal [facility] Comment on above: Performed By: #### 1 [id number] ####[facility] (DEFAULT)[address] [place] [address] U Methamp Scrn Negative [facility] Comment on above: Performed By: #### 1 [id number] ####[facility] (DEFAULT)[address] [place] [place] [address]45 U Opiate Scr Negative [facility] Comment on above: Performed By: #### 1 [id number] ####[facility] (DEFAULT)[address] [address] 58836 U Oxycod Scr Negative [facility] Comment on above: Performed By: #### 1 [id number] ####[facility] (DEFAULT)[address] [address] 08242 U Phencyclidine Scr Negative [facility] Comment on above: Performed By: #### 1 [id number] ####[facility] (DEFAULT)[address] [address] 70746 U Propoxyphene Scr Negative Normal [facility] Comment on above: Performed By: #### 1 [id number] ####[facility] (DEFAULT)[address] [place] [address] 88895 U Tricyclic Antidepress Scr Negative Normal [facility] Comment on above: Performed By: #### 1 [id number] ####[facility] (DEFAULT)[address] [place] [address] 12023 Urine Source Clean Catch [facility] Comment on above: Performed By: #### 1 [id number] ####[facility] (DEFAULT)[address] [place] [address] 34783 UA w Culture if Ind Standard on 12-30-2018 Breakpoint UA Normal [facility] Comment on above: Performed By: #### 3 [id number], [id number] ####[facility] (DEFAULT)[address] [place] [address] 18641 Color (U) YELLOW [facility] Comment on above: Performed By: #### 3 [id number], [id number] ####[facility] (DEFAULT)[address] [place] [address] Culture? Not Indicated [facility] Comment on above: Performed By: #### 3 [id number], [id number] ####[facility] (DEFAULT)[address] [place] [address] 43190 Glucose (U) [Mass/Vol] Negative [facility] Comment on above: Performed By: #### 3 [id number], [id number] ####[facility] (DEFAULT)[address] [place] [address] 54888 Ketones Ql (U) Negative [facility] Comment on above: Performed By: #### 3 [id number], [id number] ####[facility] (DEFAULT)[address] [place] [address] 74019 Micro? Not Indicated [facility] Comment on above: Performed By: #### 3 [id number], [id number] ####[facility] (DEFAULT)[address] [place] [address] 91986 UA Bilirubin Negative Normal [facility] Comment on above: Performed By: #### 3 [id number], [id number] ####[facility] (DEFAULT)[address] [place] [address] 68481 UA Blood Negative Normal NEGATIVE [facility] Comment on above: Performed By: #### 3 [id number], [id number] ####[facility] (DEFAULT)[address] [place] [address] 69372 UA Clarity CLEAR Normal CLEAR [facility] Comment on above: Performed By: #### 3 [id number], [id number] ####[facility] (DEFAULT)[address] [place] [address] UA Leuk Est Negative Normal NEGATIVE [facility] Comment on above: Performed By: #### 3 [id number], [id number] ####[facility] (DEFAULT)[address] [place] [address] UA Nitrite Negative Normal NEGATIVE [facility] Comment on above: Performed By: #### 3 [id number], [id number] ####[facility] (DEFAULT)[address] [place] [address] UA pH 7.5 5-8 [facility] Comment on above: Performed By: #### 3 [id number], [id number] ####[facility] (DEFAULT)[address] [place] [address] UA Protein Negative Normal [facility] Comment on above: Performed By: #### 3 [id number], [id number] ####[facility] (DEFAULT)[address] [place] [address] UA Spec Grav 1.010 1.001-1.035 [facility] Comment on above: Performed By: #### 3 [id number], [id number] ####[facility] (DEFAULT)[address] [place] [address] UA Urobilinogen 0.2 mg/dL Normal 0.2-1.0 [facility] Comment on above: Performed By: #### 3 [id number], [id number] ####[facility] (DEFAULT)[address] [place] [address] Urine Source Clean Catch Normal [facility] Comment on above: Performed By: #### 3 [id number], [id number] ####[facility] (DEFAULT)[address] [place] [address] Coding Summaryon 12-06-2018 Coding Summary CODING DATE: 12/06/2018 [facility] STATUS: Home PAYOR: Medicaid HMO ADMIT DX: REASON FOR VISIT DX: M79.671 Pain in right foot FINAL DX: PRINCIPAL: M79.671 Pain in right foot SECONDARY: M25.571 Pain in right ankle and joints of right foot Z87.81 Personal history of (healed) traumatic fracture PYMT PROC APC STAT DESCRIPTION DOCTOR NAME DATE NOTE: The code number assigned matches the documented diagnosis and / or procedure in the patient's chart. However, the narrative phrase printed from the coding software may appear abbreviated, or result in slightly different terminology. Coded By: Ania Card Date Saved: 12/06/2018 02:01 pm [facility] Coding Summary CODING DATE: 12/06/2018 [facility] STATUS: PAYOR: Medicaid HMO ADMIT DX: REASON FOR VISIT DX: M79.671 Pain in right foot FINAL DX: PRINCIPAL: M79.671 Pain in right foot SECONDARY: M25.571 Pain in right ankle and joints of right foot Z87.81 Personal history of (healed) traumatic fracture PYMT PROC APC STAT DESCRIPTION DOCTOR NAME DATE NOTE: The code number assigned matches the documented diagnosis and / or procedure in the patient's chart. However, the narrative phrase printed from the coding software may appear abbreviated, or result in slightly different terminology. Coded By: Ania Card Date Saved: 12/06/2018 02:01 pm [facility] Coding Summary CODING DATE: 12/06/2018 [facility] STATUS: Home PAYOR: Medicaid HMO ADMIT DX: REASON FOR VISIT DX: M79.671 Pain in right foot FINAL DX: PRINCIPAL: M79.671 Pain in right foot SECONDARY: M25.571 Pain in right ankle and joints of right foot PYMT PROC APC STAT DESCRIPTION DOCTOR NAME DATE NOTE: The code number assigned matches the documented diagnosis and / or procedure in the patient's chart. However, the narrative phrase printed from the coding software may appear abbreviated, or result in slightly different terminology. Coded By: Ania Card Date Saved: 12/06/2018 01:59 pm [facility] ED Clinical Summaryon 2018 ED Clinical Summary [facility] - Emergency Department [address] [place], [place] [id number] ED Clinical Summary PERSON INFORMATION Name: RUPAL RUBIO Age: 13 Years Sex: FEMALE : 2005 MRN: Acct#: Visit Reason: Foot pain-swelling; RIGHT FOOT PAIN Arrival: 12/05/2018 21:07:31 Discharge: 12/05/2018 22:06:00 LOS: 000 00:59 Check In: 12/05/2018 21:07:31 Checkout:12/05/2018 22:06:00 Address: [address] [place] [address] PCP: Linda NIELSEN, Vernell Wen PROVIDER INFORMATION Provider Role Assigned Unassigned YAMILETH BRADLEY ED PA 12/05/2018 21:09:56 Parish RN, Vi Castillo ED Nurse 12/05/2018 21:14:06 VITALS INFORMATION Vital Sign Triage Latest Temperature Tympanic Temperature Temporal Artery Pulse Rate 80 bpm 80 bpm O2 Sat 99 % 99 % Respiratory Rate 18 br/min 18 br/min Blood Pressure /66 mmHg /66 mmHg MEDICAL INFORMATION Medications Given: Allergy Information: No Known Medication Allergies PHYSICIAN DOCUMENTATION Patient: RUPAL RUBIO Age: 13 years Sex: FEMALE : 2005 Associated Diagnoses: Right foot pain; Right ankle pain Author: YAMILETH BRADLEY Basic Information Time seen: Date & time 12/05/2018 21:11:00. History source: Patient, mother. Arrival mode: Private vehicle, walking. History of Present Illness 13-year-old female sent to the emergency department with complaint of pain in her right foot and ankle area. Patient indicates she had a hairline fracture in her right foot near the inner aspect of her right ankle approximately 2 months ago. Was treated by her orthopedist and ultimately released. States approximately 4 weeks ago she had a laceration on the bottom of that same foot. States this was repaired and sutures removed. Indicates that over the last 2 weeks she's noticed swelling in her foot area or than her left foot. States she has mild achiness in the same area as her fracture. 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 Mother and patient deny patient following up with primary care provider seeing her orthopedist for this. patient denies any other issue. Review of Systems Constitutional symptoms: No fever, Skin symptoms: No rash, Eye symptoms: Vision unchanged. ENMT symptoms: No sore throat, no nasal congestion. Respiratory symptoms: No shortness of breath, no cough. Cardiovascular symptoms: No chest pain, no tachycardia. Gastrointestinal symptoms: No abdominal pain, no nausea, no vomiting. Genitourinary symptoms: No dysuria, Musculoskeletal symptoms: Joint pain, No back pain, Neurologic symptoms: No headache, Health Status Allergies: Allergic Reactions (Selected) No Known Medication Allergies. Medications: (Selected) Documented Medications Documented Adderall: 20 mg, PO, BID, 0 Refill(s) Topamax 25 mg oral tablet: 75 mg, 3 tab(s), PO, BID, 0 Refill(s). Past Medical/ Family/ Social History Family history: No family history items have been selected or recorded.. Social history: Social & Psychosocial Habits Alcohol 11/14/2018 Alcohol Use: Never Substance Abuse 11/14/2018 Substance use: Never Tobacco 02/20/2017 Smoking tobacco use: Never (less than 100 in l . Physical Examination CONST: -Well-developed well-nourished. -Acute distress: No -Vitals: reviewed. SKIN: -Gross abnormalities: No ENT: - pharynx pink and moist. NECK: -Supple (kjuf-ji-wreqg): non-tender. CARD: -Rate and rhythm: Regular -Edema: No -Calf pain: No RESP: -Respiratory effort and chest excursion with respirations: Normal -Breath sounds equal bilaterally: Clear -Wheezes: No -Rales: No BACK: -Signs of pain with movement: No EXT: Gross appearance and use of all four extremities: Unremarkable - no significant discomfort with palpation of foot or ankle. Posterior tibial pulse 2+ intact right lower extremity, capillary refill less than 2 seconds. - Patient's feet are covered in dirt, visible area of laceration appears normal, no surrounding erythema or drainage from this area. Appears to heal nicely NEURO: -Patient: alert -Gross CN or Focal Neuro deficits: No -Oriented to: person, place and time. -Appearance and judgment: appropriate. Medical Decision Making 13-year-old female presenting to the emergency department for evaluation of swelling in her foot. Previous fracture. Patient continues to be up and on her feet, denied following up with primary care provider or her orthopedist. x-ray of ankle and foot show no acute fracture or dislocation hasn't by me in the emergency department. I indicates she should follow up with primary care provider or her orthopedic physician in the next few days for reevaluation in the meantime continue with rest ice and elevation using ice 10 minutes out of every hour. Told to continue Tylenol and ibuprofen will give her an Obinna wrap in the emergency Department if she should continue with. Patient indicated she understood was in agreement. Patient is stable we discharged Impression and Plan Diagnosis Right foot pain ([id number] M79.671, Discharge, Medical) Right ankle pain ([id number] M25.571, Discharge, Medical) Plan Condition: Stable. Disposition: Discharged: Time 12/05/2018 21:55:00, to home. Prescriptions: Launch prescriptions Radiology: XR Foot Complete Right (Order): 12/05/2018 21:17 EDT Stat, pain swelling, previous fracture, Allow Modification Per Radiologist, Transport Mode: Wheelchair XR Ankle Complete Right (Order): 12/05/2018 21:17 EDT Stat, pain swelling, previous fracture, Allow Modification Per Radiologist, Transport Mode: Wheelchair, Launch prescriptions Patient Care: Brace/Splint ED (Order): 12/05/2018 21:55 EDT, Obinna wrap. Patient was given the following educational materials: Cryotherapy, Ankle Pain, Foot Pain. Limitations: Limited activity, Limited work, No heavy lifting. Follow up with: Vernell Mckeon Within 2 to 4 days Follow-up primary care provider for reevaluation for your orthopedic doctor. Continue with rest ice and elevation using ice 10 minutes out of every hour. Continue with Obinna wrap until follow-up. Return for any worsening issues such as redness spreading around the foot or ankle, fevers, severe increasing pains or any other issue. Continue Tylenol and ibuprofen for aches and pains.. Counseled: Patient, Regarding diagnosis, Regarding diagnostic results, Regarding treatment plan, Patient indicated understanding of instructions. DISCHARGE INFORMATION: Discharge Disposition: Home Discharge Location: Home PATIENT EDUCATION INFORMATION Instructions: Foot Pain; Ankle Pain; Cryotherapy Follow-Up: With: Address: When: Vernell Mckeon [facility] [place] [address] [facility] (1) Within 2 to 4 days Comments: Follow-up primary care provider for reevaluation for your orthopedic doctor. Continue with rest ice and elevation using ice 10 minutes out of every hour. Continue with Obinna wrap until follow-up. Return for any worsening issues such as redness spreading around the foot or ankle, fevers, severe increasing pains or any other issue. Continue Tylenol and ibuprofen for aches and pains. DIAGNOSIS: Right ankle pain; Right foot pain Patient Understands: Yes - Patient/family/caregiv er verbalizes understanding of instructions given Comment: [facility] ED Patient Education Noteon 12-06-2018 ED Patient Education Note Education Materials Orthopedics Foot Pain Many things can cause foot pain. Some common causes are: ? An injury. ? A sprain. ? Arthritis. ? Blisters. ? Bunions. Follow these instructions at home: Pay attention to any changes in your symptoms. Take these actions to help with your discomfort: ? If directed, put ice on the affected area: ? Put ice in a plastic bag. ? Place a towel between your skin and the bag. ? Leave the ice on for 15?20 minutes, 3?4 times a day for 2 days. ? Take eyjz-muu-ssjisga and prescription medicines only as told by your health care provider. ? Wear comfortable, supportive shoes that fit you well. Do not wear high heels. ? Do not stand or walk for long periods of time. ? Do not lift a lot of weight. This can put added pressure on your feet. ? Do stretches to relieve foot pain and stiffness as told by your health care provider. ? Rub your foot gently. ? Keep your feet clean and dry. Contact a health care provider if: ? Your pain does not get better after a few days of self-care. ? Your pain gets worse. ? You cannot stand on your foot. Get help right away if: ? Your foot is numb or tingling. ? Your foot or toes are swollen. ? Your foot or toes turn white or blue. ? You have warmth and redness along your foot. This information is not intended to replace advice given to you by your health care provider. Make sure you discuss any questions you have with your health care provider. Document Released: 04/29/2016 Document Revised: 09/08/2016 Document Reviewed: 04/29/2015 [employer] Interactive Patient Education ? 2019 [employer] Ankle Pain Many things can cause ankle pain, including an injury to the area and overuse of the ankle.?The ankle joint holds your body weight and allows you to move around. Ankle pain can occur on either side or the back of one ankle or both ankles. Ankle pain may be sharp and burning or dull and aching. There may be tenderness, stiffness, redness, or warmth around the ankle. Follow these instructions at home: Activity ? Rest your ankle as told by your health care provider. Avoid any activities that cause ankle pain. ? Do exercises as told by your health care provider. ? Ask your health care provider if you can drive. Using a brace, a bandage, or crutches ? If you were given a brace: ? Wear it as told by your health care provider. ? Remove it when you take a bath or a shower. ? Try not to move your ankle very much, but wiggle your toes from time to time. This helps to prevent swelling. ? If you were given an elastic bandage: ? Remove it when you take a bath or a shower. ? Try not to move your ankle very much, but wiggle your toes from time to time. This helps to prevent swelling. ? Adjust the bandage to make it more comfortable if it feels too tight. ? Loosen the bandage if you have numbness or tingling in your foot or if your foot turns cold and blue. ? If you have crutches, use them as told by your health care provider. Continue to use them until you can walk without feeling pain in your ankle. Managing pain, stiffness, and swelling ? Raise (elevate) your ankle above the level of your heart while you are sitting or lying down. ? If directed, apply ice to the area: ? Put ice in a plastic bag. ? Place a towel between your skin and the bag. ? Leave the ice on for 20 minutes, 2?3 times per day. General instructions ? Keep all follow-up visits as told by your health care provider. This is important. ? Record this information that may be helpful for you and your health care provider: ? How often you have ankle pain. ? Where the pain is located. ? What the pain feels like. ? Take gzjs-yce-nljjhmd and prescription medicines only as told by your health care provider. Contact a health care provider if: ? Your pain gets worse. ? Your pain is not relieved with medicines. ? You have a fever or chills. ? You are having more trouble with walking. ? You have new symptoms. Get help right away if: ? Your foot, leg, toes, or ankle tingles or becomes numb. ? Your foot, leg, toes, or ankle becomes swollen. ? Your foot, leg, toes, or ankle turns pale or blue. This information is not intended to replace advice given to you by your health care provider. Make sure you discuss any questions you have with your health care provider. Document Released: 09/21/2010 Document Revised: 12/02/2016 Document Reviewed: 11/03/2015 [employer] Interactive Patient Education ? 2019 [employer]. Cryotherapy What is cryotherapy? Cryotherapy, or cold therapy, is a treatment that uses cold temperatures to treat an injury or medical condition. It includes using cold packs or ice packs to reduce pain and swelling. Who should not use cryotherapy? Cryotherapy is not safe for people who cannot tell you if they are in pain, such as small children and people who have dementia. Cryotherapy is also not safe for people with certain conditions, such as: ? Raynaud phenomenon. ? Cold hypersensitivity. ? Numbness or loss of feeling in the area being iced. Cryotherapy may or may not be safe for people with certain other conditions. Do not use cryotherapy without your health care provider's approval if you have: ? A heart condition. ? High blood pressure. ? Open or healing wounds. ? An infection. ? Rheumatoid arthritis. ? Poor circulation. ? Diabetes. ? Certain skin conditions. How do I use cryotherapy? To use cryotherapy at home to reduce pain and swelling: ? Place a towel between the cold source and your skin. ? Apply the cold source for no more than 20 minutes at a time. ? Check your skin after 5 minutes to make sure there are no signs of a poor response to cold or skin damage. Check for: ? White spots on your skin. Your skin may look blotchy or mottled. ? Skin that looks blue or pale. ? Skin that feels waxy or hard. ? Repeat these steps as many times each day as told by your health care provider. How can I make a cold pack? When using a cold pack at home to reduce pain and swelling, you can use: ? A silica gel cold pack that has been left in the freezer. You can buy this online or in stores. ? A plastic bag of frozen vegetables. ? A sealable plastic bag that has been filled with crushed ice. Always wrap the pack in a dry or damp towel to avoid direct contact with your skin. Contact a health care provider if: ? You develop white spots on your skin. This may give your skin a blotchy or mottled look. ? Your skin turns blue or pale. ? Your skin becomes waxy or hard. ? Your swelling gets worse. This information is not intended to replace advice given to you by your health care provider. Make sure you discuss any questions you have with your health care provider. Document Released: 11/28/2011 Document Revised: 06/08/2017 Document Reviewed: 12/16/2015 [employer] Interactive Patient Education ? 2019 [employer]. Normal [facility] ED Patient Summaryon 019 ED Patient Summary [facility] - Emergency Department [address] [place] [address] PATIENT DISCHARGE INSTRUCTIONS Patient Information Name: RUPAL RUBIO Age: 13 Years Date of : 2005 Reason For Visit: Foot pain-swelling; RIGHT FOOT PAIN Arrival Time: 12/05/2018 21:07:31 Primary Care Physician: Vernell Mckeon NP Attending Physician: Ger Patel MD Comment: Visit Diagnosis: Diagnoses This Visit Foot pain-swelling ([id number]) Right ankle pain (M25.571) Right foot pain (M79.671) Prescription Information: If you have been given a prescription for narcotics, seek immediate medical attention if you have any difficulty breathing or any sudden status changes such as confusion and sleepiness. If you or anyone you know is experiencing suicidal thoughts, mental health, alcohol and/or drug addiction problems; contact the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 working phone number so we can reach you if necessary. [facility] Emergency Department has provided you with a complete list of medications post discharge. Please inform your architect marine/provider of your visit and for further instruction on these medications. Any specific questions regarding your chronic medications and dosages should be discussed with your primary care physician(s) and/or pharmacist. New Medications Printed Prescriptions cephalexin (Keflex 500 mg oral capsule) 1 cap(s) Oral Every 12 hours scheduled time for 7 Days. Refills: 0. Medications to Continue That Have Not Changed Other Medications amphetamine-dextroamph etamine (Adderall) 20 Milligram Oral 2 times a day. topiramate (Topamax 25 mg oral tablet) 3 tab(s) Oral 2 times a day. No Longer Take the Following Medications melatonin (Melatonin 3 mg oral tablet) 1 tab(s) Oral once a day (at bedtime) as needed for insomnia. Visit Information Allergies: Substance Reaction Symptoms Type Comments No Known Medication Allergies Drug Vital Signs: Vitals and Measurements this Visit (last charted value for your 11/14/2018 visit) Vital Signs This Visit Temperature Oral: 36.9 DegC Peripheral Pulse Rate: 80 bpm Respiratory Rate: 18 br/min Systolic Blood Pressure: 128 mmHg Diastolic Blood Pressure: 81 mmHg SpO2: 100 % Oxygen Therapy: Room air Measurements This Visit Height/Length Dosin.720 cm Height/Length Estimated: 172.720 cm Weight Dosin.970 kg Weight Estimated: 58.970 kg Problems List: Problem Onset Comments Epileptic Patient Education Stitches, Libby, or Adhesive Wound Closure Health care providers use stitches (sutures), libby, and certain glue (skin adhesives) to hold skin together while it heals (wound closure). You may need this treatment after you have surgery or if you cut your skin accidentally. These methods help your skin to heal more quickly and make it less likely that you will have a scar. A wound may take several months to heal completely. The type of wound you have determines when your wound gets closed. In most cases, the wound is closed as soon as possible (primary skin closure). Sometimes, closure is delayed so the wound can be cleaned and allowed to heal naturally. This reduces the chance of infection. Delayed closure may be needed if your wound: ? Is caused by a bite. ? Happened more than 6 hours ago. ? Involves loss of skin or the tissues under the skin. ? Has dirt or debris in it that cannot be removed. ? Is infected. What are the different kinds of wound closures? There are many options for wound closure. The one that your health care provider uses depends on how deep and how large your wound is. Adhesive Glue To use this type of glue to close a wound, your health care provider holds the edges of the wound together and paints the glue on the surface of your skin. You may need more than one layer of glue. Then the wound may be covered with a light bandage (dressing). This type of skin closure may be used for small wounds that are not deep (superficial). Using glue for wound closure is less painful than other methods. It does not require a medicine that numbs the area (local anesthetic). This method also leaves nothing to be removed. Adhesive glue is often used for children and on facial wounds. Adhesive glue cannot be used for wounds that are deep, uneven, or bleeding. It is not used inside of a wound. Adhesive Strips These strips are made of sticky (adhesive), porous paper. They are applied across your skin edges like a regular adhesive bandage. You leave them on until they fall off. Adhesive strips may be used to close very superficial wounds. They may also be used along with sutures to improve the closure of your skin edges. Sutures Sutures are the oldest method of wound closure. Sutures can be made from natural substances, such as silk, or from synthetic materials, such as nylon and steel. They can be made from a material that your body can break down as your wound heals (absorbable), or they can be made from a material that needs to be removed from your skin (nonabsorbable). They come in many different strengths and sizes. Your health care provider attaches the sutures to a steel needle on one end. Sutures can be passed through your skin, or through the tissues beneath your skin. Then they are tied and cut. Your skin edges may be closed in one continuous stitch or in separate stitches. Sutures are strong and can be used for all kinds of wounds. Absorbable sutures may be used to close tissues under the skin. The disadvantage of sutures is that they may cause skin reactions that lead to infection. Nonabsorbable sutures need to be removed. Libby When surgical libby are used to close a wound, the edges of your skin on both sides of the wound are brought close together. A staple is placed across the wound, and an instrument secures the edges together. [place] are often used to close surgical cuts (incisions). Libby are faster to use than sutures, and they cause less skin reaction. [place] need to be removed using a tool that bends the libby away from your skin. How do I care for my wound closure? ? Take medicines only as directed by your health care provider. ? If you were prescribed an antibiotic medicine for your wound, finish it all even if you start to feel better. ? Use ointments or creams only as directed by your health care provider. ? Wash your hands with soap and water before and after touching your wound. ? Do not soak your wound in water. Do not take baths, swim, or use a hot tub until your health care provider approves. ? Ask your health care provider when you can start showering. Cover your wound if directed by your health care provider. ? Do not take out your own sutures or libby. ? Do not pick at your wound. Picking can cause an infection. ? Keep all follow-up visits as directed by your health care provider. This is important. How long will I have my wound closure? ? Leave adhesive glue on your skin until the glue peels away. ? Leave adhesive strips on your skin until the strips fall off. ? Absorbable sutures will dissolve within several days. ? Nonabsorbable sutures and libby must be removed. The location of the wound will determine how long they stay in. This can range from several days to a couple of weeks. When should I seek help for my wound closure? Contact your health care provider if: ? You have a fever. ? You have chills. ? You have drainage, redness, swelling, or pain at your wound. ? There is a bad smell coming from your wound. ? The skin edges of your wound start to separate after your sutures have been removed. ? Your wound becomes thick, raised, and darker in color after your sutures come out (scarring). This information is not intended to replace advice given to you by your health care provider. Make sure you discuss any questions you have with your health care provider. Document Released: 12/27/2001 Document Revised: 11/30/2016 Document Reviewed: 09/10/2014 [employer] Patient Education ? 2018 [employer] Laceration Care, Pediatric A laceration is a cut that goes through all of the layers of the skin and into the tissue that is right under the skin. Some lacerations heal on their own. Others need to be closed with stitches (sutures), libby, skin adhesive strips, or wound glue. Proper laceration care minimizes the risk of infection and helps the laceration to heal better. How to care for your child's laceration If sutures or libby were used: ? Keep the wound clean and dry. ? If your child was given a bandage (dressing), you should change it at least one time per day or as directed by the health care provider. You should also change it if it becomes wet or dirty. ? Keep the wound completely dry for the first 24 hours or as directed by the health care provider. After that time, your child may shower or bathe. However, make sure that the wound is not soaked in water until the sutures or libby have been removed. ? Clean the wound one time each day or as directed by the health care provider: ? Wash the wound with soap and water. ? Rinse the wound with water to remove all soap. ? Pat the wound dry with a clean towel. Do not rub the wound. ? After cleaning the wound, apply a thin layer of antibiotic ointment as directed by the health care provider. This will help to prevent infection and keep the dressing from sticking to the wound. ? Have the sutures or libby removed as directed by the health care provider. If skin adhesive strips were used: ? Keep the wound clean and dry. ? If your child was given a bandage (dressing), change it at least once per day or as directed by the health care provider. Also, change it if it becomes dirty or wet. ? Do not let the skin adhesive strips get wet. Your child may shower or bathe, but be careful to keep the wound dry. ? If the wound gets wet, pat it dry with a clean towel. Do not rub the wound. ? Skin adhesive strips fall off on their own. You may trim the strips as the wound heals. Do not remove skin adhesive strips that are still stuck to the wound. They will fall off in time. If wound glue was used: ? Try to keep the wound dry, but your child may briefly wet it in the shower or bath. Do not allow the wound to be soaked in water, such as by swimming. ? After your child has showered or bathed, gently pat the wound dry with a clean towel. Do not rub the wound. ? Do not allow your child to do any activities that will make him or her sweat heavily until the skin glue has fallen off on its own. ? Do not apply liquid, cream, or ointment medicine to the wound while the skin glue is in place. Using those may loosen the film before the wound has healed. ? If your child was given a bandage (dressing), you should change it at least once per day or as directed by the health care provider. You should also change it if it becomes dirty or wet. ? If a dressing is placed over the wound, be careful not to apply tape directly over the skin glue. This may cause the glue to be pulled off before the wound has healed. ? Do not let your child pick at the glue. The skin glue usually remains in place for 5?10 days, then it falls off of the skin. General Instructions ? Give medicines only as directed by the health care provider. ? To help prevent scarring, make sure to cover your child's wound with sunscreen whenever he or she is outside after sutures are removed, after adhesive strips are removed, or when glue remains in place and the wound is healed. Make sure your child wears a sunscreen of at least 30 SPF. ? If your child was prescribed an antibiotic medicine or ointment, have him or her finish all of it even if your child starts to feel better. ? Do not let your child scratch or pick at the wound. ? Keep all follow-up visits as directed by your child?s health care provider. This is important. ? Check your child?s wound every day for signs of infection. Watch for: ? Redness, swelling, or pain. ? Fluid, blood, or pus. ? Have your child raise (elevate) the injured area above the level of his or her heart while he or she is sitting or lying down, if possible. Contact a health care provider if: ? Your child received a tetanus and shot and has swelling, severe pain, redness, or bleeding at the injection site. ? Your child has a fever. ? A wound that was closed breaks open. ? You notice a bad smell coming from the wound. ? You notice something coming out of the wound, such as wood or glass. ? Your child?s pain is not controlled with medicine. ? Your child has increased redness, swelling, or pain at the site of the wound. ? Your child has fluid, blood, or pus coming from the wound. ? You notice a change in the color of your child's skin near the wound. ? You need to change the dressing frequently due to fluid, blood, or pus draining from the wound. ? Your child develops a new rash. ? Your child develops numbness around the wound. Get help right away if: ? Your child develops severe swelling around the wound. ? Your child's pain suddenly increases and is severe. ? Your child develops painful lumps near the wound or on skin that is anywhere on his or her body. ? Your child has a red streak going away from his or her wound. ? The wound is on your child's hand or foot and he or she cannot properly move a finger or toe. ? The wound is on your child's hand or foot and you notice that his or her fingers or toes look pale or bluish. ? Your child who is younger than 3 months has a temperature of 100?F (38?C) or higher. This information is not intended to replace advice given to you by your health care provider. Make sure you discuss any questions you have with your health care provider. Document Released: 06/13/2007 Document Revised: 09/08/2016 Document Reviewed: 03/30/2015 [employer] Patient Education ? 2019 [employer] Viruses or Bacteria What?s got you sick? Antibiotics only treat bacterial infections. Viral illnesses cannot be treated with antibiotics. When an antibiotic is not prescribed, ask your healthcare professional for tips on how to relieve symptoms and feel better. Usual Cause Illness Viruses Bacteria Antibiotic Needed Cold/Runny Nose NO Bronchitis/Chest Cold (in otherwise healthy children and adults) NO Whooping Cough Yes Flu NO Strep Throat Yes Sore Throat (except strep) NO Fluid in the middle ear (otitis media with effusion) NO Urinary Tract Infection Yes Antibiotics Aren?t Always the Answer www.cdc.gov/getsmart GET SMART Know When Antibiotics Work [place] Department of Health and Human Services Centers for Disease Control and Prevention December 2013 [facility] XR Foot Complete Righton XR Foot Complete Right HISTORY: Lacerati on plantar surface, evaluate for foreign body. TECHNIQUE: 3 views of the right foot were obtained. COMPARISON: None. FINDINGS: No fracture, dislocation, or acute osseous abnormalities identified. IMPRESSION: No acute process is seen. No radiopaque foreign bodies identified. Final Dictated by: Elvin Ortiz Dictated DT/TM: 11/14/18 3:05 Signed (Electronic Signature): Elvin Ortiz 11/14/18 3:23 pm Technologist: MISAEL KOENIG [facility] Coding Summaryon 03-29-2018 Coding Summary CODING DATE: 03/29/2018 [facility] STATUS: Home PAYOR: Medicaid O ADMIT DX: REASON FOR VISIT DX: S61.212A Laceration without foreign body of right middle finger without damage to nail, initial encounter FINAL DX: PRINCIPAL: S61.212A Laceration without foreign body of right middle finger without damage to nail, initial encounter SECONDARY: W26.8XXA Contact with other sharp object(s), not elsewhere classified, initial encounter Y93.E8 Activity, other personal hygiene W01.0XXA Fall on same level from slipping, tripping and stumbling without subsequent striking against object, initial encounter PROCEDURES DOCTOR NAME DATE NOTE: The code number assigned matches the documented diagnosis and / or procedure in the patient's chart. However, the narrative phrase printed from the coding software may appear abbreviated, or result in slightly different terminology. Coded By: Ania Card Date Saved: 03/29/2018 05:05 pm [facility] Coding Summary CODING DATE: 03/29/2018 [facility] STATUS: Home PAYOR: Medicaid O ADMIT DX: REASON FOR VISIT DX: S61.212A Laceration without foreign body of right middle finger without damage to nail, initial encounter FINAL DX: PRINCIPAL: S61.212A Laceration without foreign body of right middle finger without damage to nail, initial encounter SECONDARY: W26.8XXA Contact with other sharp object(s), not elsewhere classified, initial encounter Y93.E8 Activity, other personal hygiene W01.0XXA Fall on same level from slipping, tripping and stumbling without subsequent striking against object, initial encounter PROCEDURES DOCTOR NAME DATE NOTE: The code number assigned matches the documented diagnosis and / or procedure in the patient's chart. However, the narrative phrase printed from the coding software may appear abbreviated, or result in slightly different terminology. Coded By: Ania Card Date Saved: 03/29/2018 05:03 pm Normal [facility] ED Clinical Summaryon 2017 ED Clinical Summary [facility] - Emergency Department [address] [place] [id number] ED Clinical Summary PERSON INFORMATION Name: RUPAL RUBIO Age: 12 Years Sex: FEMALE : [birth year] MRN: Acct#: Visit Reason: RIGHT THIRD FINGER LACERATION Arrival: 03/26/18 10:10:00 Discharge: 03/26/18 11:16:00 LOS: 000 01:06 Check In: 03/26/18 10:10:00 Checkout:03/26/18 11:16:00 Address: [address] [place], [place] [id number] PCP: Linda NIELSEN, Vernell Wen PROVIDER INFORMATION Provider Role Assigned Unassigned YAMILETH BRADLEY ED PA 03/26/18 10:39:12 Edwina RN, Evonne ED Nurse 03/26/18 11:14:49 VITALS INFORMATION Vital Sign Triage Latest Temperature Tympanic Temperature Temporal Artery Pulse Rate O2 Sat Respiratory Rate Blood Pressure / / MEDICAL INFORMATION Medications Given: Medication Dose Route bacitracin topical 500 unit(s) TOP Allergy Information: No Known Medication Allergies PHYSICIAN DOCUMENTATION Patient: RUPAL RUBIO Age: 12 years Sex: FEMALE : [birth year] Associated Diagnoses: Finger laceration Author: YAMILETH BRADLEY Basic Information Time seen: Date & time 03/26/18 10:43:00. History source: Patient. Arrival mode: Private vehicle, walking. History of Present Illness 12-year-old female presenting to emergency department with complaint of laceration to her right middle finger. Patient indicates that she was shaving her legs tripped and fell and cut her finger on a razor. States that his continued to bleed over the last half hour. Denies any loss of motor function or sensation of the finger. States she is up-to-date with immunizations and denies any other issues at this time. She denied hitting her head or any loss of consciousness. Denies any other aches or pains at this time. Review of Systems Constitutional symptoms: No fever, Skin symptoms: Laceration. ENMT symptoms: No sore throat, no nasal congestion. Respiratory symptoms: No shortness of breath, no cough. Cardiovascular symptoms: No chest pain, no tachycardia. Gastrointestinal symptoms: No abdominal pain, no nausea, no vomiting. Genitourinary symptoms: No dysuria, Musculoskeletal symptoms: No back pain, Neurologic symptoms: No headache, Health Status Allergies: Allergic Reactions (Selected) No Known Medication Allergies. Medications: (Selected) Documented Medications Documented Adderall: 20 mg, PO, BID, 0 Refill(s) Melatonin 3 mg oral tablet: 3 mg = 1 tab(s), PO, Once a day (at bedtime), PRN: for insomnia, 0 Refill(s) Topamax 25 mg oral tablet: 75 mg, 3 tab(s), PO, BID, 0 Refill(s). Past Medical/ Family/ Social History Family history: No family history items have been selected or recorded.. Social history: Social & Psychosocial Habits Tobacco 02/20/2017 Smoking tobacco use: Never (less than 100 in l . Problem list: Active Problems (1) Epileptic . Physical Examination CONST: -Well-developed well-nourished. -Acute distress: No -Vitals: reviewed. SKIN: -Gross abnormalities: small sonia laceration to the distal aspect of the right third digit, not actively bleeding, this measures approximately quarter of a centimeter EYES: -EOM intact, TACOS: -Sclera conjunctiva: Unremarkable. ENT: - Normal pharynx pink and moist. NECK: -Supple ([id number]): non-tender. CARD: -Rate and rhythm: Regular RESP: -Respiratory effort and chest excursion with respirations: Normal -Breath sounds equal bilaterally: Clear -Wheezes: No -Rales: No BACK: -Signs of pain with movement: No ABD: -Distended: No -Deep palpation: Non-tender EXT: Gross appearance and use of all four extremities: Unremarkable - Full range of motion right hand fingers, capillary refill less then 2 seconds right middle finger, sensation light touch is intact NEURO: -Patient: alert -Gross CN or Focal Neuro deficits: No -Oriented to: person, place and time. -Appearance and judgment: appropriate. Medical Decision Making 12-year-old female presenting to emergency Department complaint laceration to her finger, this is a small superficial skin sonia not actually bleeding at this time. Indicated she should keep this point with soap and water daily we put a Band-Aid over this. Recommended returning for any signs of infection educated on signs of infection. Told follow primary care provider as needed. Return any time. Impression and Plan Diagnosis Finger laceration ([id number] S61.219A, Discharge, Medical) Plan Condition: Stable. Disposition: Discharged: to home. Prescriptions: Launch prescriptions Patient Care: Brace/Splint ED (Order): 03/26/18 10:52 EST, Finger splint Wound Care Routine (Order): 03/26/18 10:52 EST Pharmacy: bacitracin topical (Order): 1 hitesh, TOP, Once school note (Prescribe): See Instructions, Please excuse from school 03/26/18, 1 EA, 0 Refill(s). Patient was given the following educational materials: Laceration Care, Adult, Skin Tear Care, Wound Check, Wound Care, Adult. Limitations: Limited activity, No heavy lifting. Follow up with: Vernell Mckeon Within 3 to 5 days, only if needed Follow-up primary care provider as needed. Continue to keep finger clean and dry. Watch for signs of infection such as redness spreading up your finger or pus coming from the wound. Return for any worsening issues.. Counseled: Patient, Family, Regarding diagnosis, Regarding treatment plan, Patient indicated understanding of instructions. DISCHARGE INFORMATION: Discharge Disposition: Home Discharge Location: Home PATIENT EDUCATION INFORMATION Instructions: Wound Care, Adult; Wound Check; Skin Tear Care; Laceration Care, Adult Follow-Up: With: Address: When: Vernell Mckeon [address] [place] [address] [facility] () Within 3 to 5 days, only if needed Comments: Follow-up primary care provider as needed. Continue to keep finger clean and dry. Watch for signs of infection such as redness spreading up your finger or pus coming from the wound. Return for any worsening issues. DIAGNOSIS: Finger laceration Patient Understands: Yes - Patient/family/caregiv er verbalizes understanding of instructions given Comment: [facility] ED Note - Physicianon 2017 ED Note - Physician Patient: RAJESH RUBIO Age: 12 years Sex: FEMALE : 03 Associated Diagnoses: Finger laceration Author: YAMILETH BRADLEY Basic Information Time seen: Date & time 03/26/18 10:43:00. History source: Patient. Arrival mode: Private vehicle, walking. History of Present Illness 12-year-old female presenting to emergency department with complaint of laceration to her right middle finger. Patient indicates that she was shaving her legs tripped and fell and cut her finger on a razor. States that his continued to bleed over the last half hour. Denies any loss of motor function or sensation of the finger. States she is up-to-date with immunizations and denies any other issues at this time. She denied hitting her head or any loss of consciousness. Denies any other aches or pains at this time. Review of Systems Constitutional symptoms: No fever, Skin symptoms: Laceration. ENMT symptoms: No sore throat, no nasal congestion. Respiratory symptoms: No shortness of breath, no cough. Cardiovascular symptoms: No chest pain, no tachycardia. Gastrointestinal symptoms: No abdominal pain, no nausea, no vomiting. Genitourinary symptoms: No dysuria, Musculoskeletal symptoms: No back pain, Neurologic symptoms: No headache, Health Status Allergies: Allergic Reactions (Selected) No Known Medication Allergies. Medications: (Selected) Documented Medications Documented Adderall: 20 mg, PO, BID, 0 Refill(s) Melatonin 3 mg oral tablet: 3 mg = 1 tab(s), PO, Once a day (at bedtime), PRN: for insomnia, 0 Refill(s) Topamax 25 mg oral tablet: 75 mg, 3 tab(s), PO, BID, 0 Refill(s). Past Medical/ Family/ Social History Family history: No family history items have been selected or recorded.. Social history: Social & Psychosocial Habits Tobacco 02/20/2017 Smoking tobacco use: Never (less than 100 in l . Problem list: Active Problems (1) Epileptic . Physical Examination CONST: -Well-developed well-nourished. -Acute distress: No -Vitals: reviewed. SKIN: -Gross abnormalities: small sonia laceration to the distal aspect of the right third digit, not actively bleeding, this measures approximately quarter of a centimeter EYES: -EOM intact, TACOS: -Sclera conjunctiva: Unremarkable. ENT: - Normal pharynx pink and moist. NECK: -Supple ([id number]): non-tender. CARD: -Rate and rhythm: Regular RESP: -Respiratory effort and chest excursion with respirations: Normal -Breath sounds equal bilaterally: Clear -Wheezes: No -Rales: No BACK: -Signs of pain with movement: No ABD: -Distended: No -Deep palpation: Non-tender EXT: Gross appearance and use of all four extremities: Unremarkable - Full range of motion right hand fingers, capillary refill less then 2 seconds right middle finger, sensation light touch is intact NEURO: -Patient: alert -Gross CN or Focal Neuro deficits: No -Oriented to: person, place and time. -Appearance and judgment: appropriate. Medical Decision Making 12-year-old female presenting to emergency Department complaint laceration to her finger, this is a small superficial skin sonia not actually bleeding at this time. Indicated she should keep this point with soap and water daily we put a Band-Aid over this. Recommended returning for any signs of infection educated on signs of infection. Told follow primary care provider as needed. Return any time. Impression and Plan Diagnosis Finger laceration (RPV10-PT S61.219A, Discharge, Medical) Plan Condition: Stable. Disposition: Discharged: to home. Prescriptions: Launch prescriptions Patient Care: Brace/Splint ED (Order): 03/26/18 10:52 EST, Finger splint Wound Care Routine (Order): 03/26/18 10:52 EST Pharmacy: bacitracin topical (Order): 1 hitesh, TOP, Once school note (Prescribe): See Instructions, Please excuse from school 03/26/18, 1 EA, 0 Refill(s). Patient was given the following educational materials: Laceration Care, Adult, Skin Tear Care, Wound Check, Wound Care, Adult. Limitations: Limited activity, No heavy lifting. Follow up with: Vernell Mckeon Within 3 to 5 days, only if needed Follow-up primary care provider as needed. Continue to keep finger clean and dry. Watch for signs of infection such as redness spreading up your finger or pus coming from the wound. Return for any worsening issues.. Counseled: Patient, Family, Regarding diagnosis, Regarding treatment plan, Patient indicated understanding of instructions. [Electronically Signed on: 03/26/2018 11:02 EST] YAMILETH BRADLEY [Verified on: 03/26/2018 11:02 EST] YAMILETH BRADLEY [facility] ED Note-Nursingon 03-26-2018 ED Note-Nursing discharge instructio ns given to the mother along with school note. Pt ambulaed over to room 10 to be with mother and brother, steady gait. Education was given and along with wound care instructions no further questions. [facility] ED Patient Education Noteon 03-26-2018 ED Patient Education Note Education Materials Dermatology Wound Care, Adult Taking care of your wound properly can help to prevent pain and infection. It can also help your wound to heal more quickly. How is this treated? Wound care ? Follow instructions from your health care provider about how to take care of your wound. Make sure you: ? Wash your hands with soap and water before you change the bandage (dressing). If soap and water are not available, use hand case fitter. ? Change your dressing as told by your health care provider. ? Leave stitches (sutures), skin glue, or adhesive strips in place. These skin closures may need to stay in place for 2 weeks or longer. If adhesive strip edges start to loosen and curl up, you may trim the loose edges. Do not remove adhesive strips completely unless your health care provider tells you to do that. ? Check your wound area every day for signs of infection. Check for: ? More redness, swelling, or pain. ? More fluid or blood. ? Warmth. ? Pus or a bad smell. ? Ask your health care provider if you should clean the wound with mild soap and water. Doing this may include: ? Using a clean towel to pat the wound dry after cleaning it. Do not rub or scrub the wound. ? Applying a cream or ointment. Do this only as told by your health care provider. ? Covering the incision with a clean dressing. ? Ask your health care provider when you can leave the wound uncovered. Medicines ? If you were prescribed an antibiotic medicine, cream, or ointment, take or use the antibiotic as told by your health care provider. Do not stop taking or using the antibiotic even if your condition improves. ? Take ucex-flj-twrjazu and prescription medicines only as told by your health care provider. If you were prescribed pain medicine, take it at least 30 minutes before doing any wound care or as told by your health care provider. General instructions ? Return to your normal activities as told by your health care provider. Ask your health care provider what activities are safe. ? Do not scratch or pick at the wound. ? Keep all follow-up visits as told by your health care provider. This is important. ? Eat a diet that includes protein, vitamin A, vitamin C, and other nutrient-rich foods. These help the wound heal: ? Protein-rich foods include meat, dairy, beans, nuts, and other sources. ? Vitamin A-rich foods include carrots and dark green, leafy vegetables. ? Vitamin C-rich foods include citrus, tomatoes, and other fruits and vegetables. ? Nutrient-rich foods have protein, carbohydrates, fat, vitamins, or minerals. Eat a variety of healthy foods including vegetables, fruits, and whole grains. Contact a health care provider if: ? You received a tetanus shot and you have swelling, severe pain, redness, or bleeding at the injection site. ? Your pain is not controlled with medicine. ? You have more redness, swelling, or pain around the wound. ? You have more fluid or blood coming from the wound. ? Your wound feels warm to the touch. ? You have pus or a bad smell coming from the wound. ? You have a fever or chills. ? You are nauseous or you vomit. ? You are dizzy. Get help right away if: ? You have a red streak going away from your wound. ? The edges of the wound open up and separate. ? Your wound is bleeding and the bleeding does not stop with gentle pressure. ? You have a rash. ? You faint. ? You have trouble breathing. This information is not intended to replace advice given to you by your health care provider. Make sure you discuss any questions you have with your health care provider. Document Released: 01/10/2009 Document Revised: 11/30/2016 Document Reviewed: 10/18/2016 [employer] Patient Education ? 2017 [employer]. Wound Check If you have a wound, it may take some time to heal. Eventually, a scar will form. The scar will also fade with time. It is important to take care of your wound while it is healing. This helps to protect your wound from infection. How should I take care of my wound at home? ? Some wounds are allowed to close on their own or are repaired at a later date. There are many different ways to close and cover a wound, including stitches (sutures), skin glue, and adhesive strips. Follow your health care provider's instructions about: ? Wound care. ? Bandage (dressing) changes and removal. ? Wound closure removal. ? Take medicines only as directed by your health care provider. ? Keep all follow-up visits as directed by your health care provider. This is important. ? Do not take baths, swim, or use a hot tub until your health care provider approves. You may shower as directed by your health care provider. ? Keep your wound clean and dry. What affects scar formation? Scars affect each person differently. How your body scars depends on: ? The location and size of your wound. ? Traits that you inherited from your parents (genetic predisposition). ? How you take care of your wound. Irritation and inflammation increase the amount of scar formation. ? Sun exposure. This can darken a scar. When should I call or see my health care provider? Call or see your health care provider if: ? You have redness, swelling, or pain at your wound site. ? You have fluid, blood, or pus coming from your wound. ? You have muscle aches, chills, or a general ill feeling. ? You notice a bad smell coming from the wound. ? Your wound separates after the sutures, libby, or skin adhesive strips have been removed. ? You have persistent nausea or vomiting. ? You have a fever. ? You are dizzy. When should I call 911 or go to the emergency room? Call 911 or go to the emergency room if: ? You faint. ? You have difficulty breathing. This information is not intended to replace advice given to you by your health care provider. Make sure you discuss any questions you have with your health care provider. Document Released: 01/07/2005 Document Revised: 09/14/2016 Document Reviewed: 01/13/2015 [employer] Patient Education ? 2018 [employer] Skin Tear Care A skin tear is a wound in which the top layers of skin have peeled off the deeper skin or tissues underneath them. This is a common problem as people get older because the skin becomes thinner and more fragile. In addition, some medicines, such as oral corticosteroids, can lead to skin thinning if they are taken for long periods of time. A skin tear is often repaired with tape or skin adhesive strips. Depending on the location of the wound, a bandage (dressing) may be applied over the tape or skin adhesive strips. Follow these instructions at home: Wound care ? Clean the wound as told by your health care provider. You may be instructed to keep the wound dry for the first few days. If you are told to clean the wound: ? Wash the wound with mild soap and water or a salt?water (saline) solution. ? Rinse the wound with water to remove all soap. ? Do not rub the wound dry. Let the wound air dry. ? Change any dressings as told by your health care provider. This includes changing the dressing if it gets wet, gets dirty, or starts to smell bad. ? Do not scratch or pick at the wound. ? Protect the injured area until it has healed. ? Check your wound every day for signs of infection. Check for: ? More redness, swelling, or pain. ? More fluid or blood. ? Warmth. ? Pus or a bad smell. Medicines ? Take vyuj-mzt-vuzwdio and prescription medicines only as told by your health care provider. ? If you were prescribed an antibiotic medicine, take or apply it as told by your health care provider. Do not stop using the antibiotic even if your condition improves. General instructions ? Keep the dressing dry as told by your health care provider. ? Do not take baths, swim, or do anything that puts your wound underwater until your health care provider approves. ? Keep all follow-up visits as told by your health care provider. This is important. Contact a health care provider if: ? You have more redness, swelling, or pain around your wound. ? You have more fluid or blood coming from your wound. ? Your wound feels warm to the touch. ? You have pus or a bad smell coming from your wound. Get help right away if: ? You have a red streak that goes away from the skin tear. ? You have a fever and chills and your symptoms suddenly get worse. This information is not intended to replace advice given to you by your health care provider. Make sure you discuss any questions you have with your health care provider. Document Released: 12/27/2001 Document Revised: 11/27/2016 Document Reviewed: 02/22/2016 [employer] Interactive Patient Education ? 2018 [employer] Laceration Care, Adult A laceration is a cut that goes through all of the layers of the skin and into the tissue that is right under the skin. Some lacerations heal on their own. Others need to be closed with stitches (sutures), libby, skin adhesive strips, or skin glue. Proper laceration care minimizes the risk of infection and helps the laceration to heal better. How is this treated? If sutures or libby were used: ? Keep the wound clean and dry. ? If you were given a bandage (dressing), you should change it at least one time per day or as told by your health care provider. You should also change it if it becomes wet or dirty. ? Keep the wound completely dry for the first 24 hours or as told by your health care provider. After that time, you may shower or bathe. However, make sure that the wound is not soaked in water until after the sutures or libby have been removed. ? Clean the wound one time each day or as told by your health care provider: ? Wash the wound with soap and water. ? Rinse the wound with water to remove all soap. ? Pat the wound dry with a clean towel. Do not rub the wound. ? After cleaning the wound, apply a thin layer of antibiotic ointment?as told by your health care provider. This will help to prevent infection and keep the dressing from sticking to the wound. ? Have the sutures or libby removed as told by your health care provider. If skin adhesive strips were used: ? Keep the wound clean and dry. ? If you were given a bandage (dressing), you should change it at least one time per day or as told by your health care provider. You should also change it if it becomes dirty or wet. ? Do not get the skin adhesive strips wet. You may shower or bathe, but be careful to keep the wound dry. ? If the wound gets wet, pat it dry with a clean towel. Do not rub the wound. ? Skin adhesive strips fall off on their own. You may trim the strips as the wound heals. Do not remove skin adhesive strips that are still stuck to the wound. They will fall off in time. If skin glue was used: ? Try to keep the wound dry, but you may briefly wet it in the shower or bath. Do not soak the wound in water, such as by swimming. ? After you have showered or bathed, gently pat the wound dry with a clean towel. Do not rub the wound. ? Do not do any activities that will make you sweat heavily until the skin glue has fallen off on its own. ? Do not apply liquid, cream, or ointment medicine to the wound while the skin glue is in place. Using those may loosen the film before the wound has healed. ? If you were given a bandage (dressing), you should change it at least one time per day or as told by your health care provider. You should also change it if it becomes dirty or wet. ? If a dressing is placed over the wound, be careful not to apply tape directly over the skin glue. Doing that may cause the glue to be pulled off before the wound has healed. ? Do not pick at the glue. The skin glue usually remains in place for 5?10 days, then it falls off of the skin. General Instructions ? Take gxsi-keq-jpeojja and prescription medicines only as told by your health care provider. ? If you were prescribed an antibiotic medicine or ointment, take or apply it as told by your doctor. Do not stop using it even if your condition improves. ? To help prevent scarring, make sure to cover your wound with sunscreen whenever you are outside after stitches are removed, after adhesive strips are removed, or when glue remains in place and the wound is healed. Make sure to wear a sunscreen of at least 30 SPF. ? Do not scratch or pick at the wound. ? Keep all follow-up visits as told by your health care provider. This is important. ? Check your wound every day for signs of infection. Watch for: ? Redness, swelling, or pain. ? Fluid, blood, or pus. ? Raise (elevate) the injured area above the level of your heart while you are sitting or lying down, if possible. Contact a health care provider if: ? You received a tetanus shot and you have swelling, severe pain, redness, or bleeding at the injection site. ? You have a fever. ? A wound that was closed breaks open. ? You notice a bad smell coming from your wound or your dressing. ? You notice something coming out of the wound, such as wood or glass. ? Your pain is not controlled with medicine. ? You have increased redness, swelling, or pain at the site of your wound. ? You have fluid, blood, or pus coming from your wound. ? You notice a change in the color of your skin near your wound. ? You need to change the dressing frequently due to fluid, blood, or pus draining from the wound. ? You develop a new rash. ? You develop numbness around the wound. Get help right away if: ? You develop severe swelling around the wound. ? Your pain suddenly increases and is severe. ? You develop painful lumps near the wound or on skin that is anywhere on your body. ? You have a red streak going away from your wound. ? The wound is on your hand or foot and you cannot properly move a finger or toe. ? The wound is on your hand or foot and you notice that your fingers or toes look pale or bluish. This information is not intended to replace advice given to you by your health care provider. Make sure you discuss any questions you have with your health care provider. Document Released: 04/03/2006 Document Revised: 09/02/2016 Document Reviewed: 03/30/2015 [employer] Interactive Patient Education ? 2017 [employer] Normal [facility] ED Patient Summaryon 018 ED Patient Summary [facility] - Emergency Department [address] [place] [address] PATIENT DISCHARGE INSTRUCTIONS Patient Information Name: RUPAL RUBIO Age: 12 Years Date of : [birth year] Reason For Visit: RIGHT THIRD FINGER LACERATION Arrival Time: 03/26/18 10:10:00 Primary Care Physician: Linda NIELSEN, Vernell Wen Attending Physician: Kuldip Whittaker MD Comment: Visit Diagnosis: Diagnoses This Visit Finger laceration (S61.219A) If you received any narcotics, sedation, or any other medication that causes drowsiness for the next 24 hours, unless otherwise directed: ? Do not drive a car. ? Do not operate machinery such as power tools, lawn mowers, drills, sewing machines, or stoves ? Avoid alcoholic beverages and drugs for allergies, nerves, or sleep ? Do not make important personal or business decisions or sign any legal documents With: Address: When: Vernell Mckeon [address] [place] [address] Business (1) Within 3 to 5 days, only if needed Comments: Follow-up primary care provider as needed. Continue to keep finger clean and dry. Watch for signs of infection such as redness spreading up your finger or pus coming from the wound. Return for any worsening issues. Medication Information: The exam and treatment you received today in the [facility] Emergency Department were for an urgent problem and are not intended as complete care. It is important for you to follow up with a doctor, nurse practitioner, or physician?s nutrition assistant for ongoing care. If your symptoms become worse or you do not improve as expected and you are unable to reach your usual health care provider, you should return to the Emergency Department, we are available 24 hours a day. For those patients who have received Radiology results, the interpretation of your X-ray as given to you by our Emergency Department physician is only a preliminary report. The Radiologist will review your films and if there is a change in the diagnosis you will be notified by phone. Please make sure you have provided a working phone number so we can reach you if necessary. In the event that you had a lab culture while you were a patient in the Emergency Department, you will be notified by phone if there is a need to change your antibiotic. Please make sure you have provided a working phone number so we can reach you if necessary. [facility] Emergency Department has provided you with a complete list of medications post discharge. Please inform your architect marine/provider of your visit and for further instruction on these medications. Any specific questions regarding your chronic medications and dosages should be discussed with your primary care physician(s) and/or pharmacist. New Medications Printed Prescriptions Misc Prescription (school note) Please excuse from school 03/26/18. Refills: 0. Medications to Continue That Have Not Changed Other Medications amphetamine-dextroamph etamine (Adderall) 20 Milligram Oral 2 times a day. melatonin (Melatonin 3 mg oral tablet) 1 tab(s) Oral once a day (at bedtime) as needed for insomnia. topiramate (Topamax 25 mg oral tablet) 3 tab(s) Oral 2 times a day. Visit Information Allergies: Substance Reaction Symptoms Type Comments No Known Medication Allergies Drug Vital Signs: Vitals and Measurements this Visit (last charted value for your 03/26/2018 visit) No vitals and measurements documented Problems List: Problem Onset Comments Epileptic Patient Education Wound Care, Adult Taking care of your wound properly can help to prevent pain and infection. It can also help your wound to heal more quickly. How is this treated? Wound care ? Follow instructions from your health care provider about how to take care of your wound. Make sure you: ? Wash your hands with soap and water before you change the bandage (dressing). If soap and water are not available, use hand case fitter. ? Change your dressing as told by your health care provider. ? Leave stitches (sutures), skin glue, or adhesive strips in place. These skin closures may need to stay in place for 2 weeks or longer. If adhesive strip edges start to loosen and curl up, you may trim the loose edges. Do not remove adhesive strips completely unless your health care provider tells you to do that. ? Check your wound area every day for signs of infection. Check for: ? More redness, swelling, or pain. ? More fluid or blood. ? Warmth. ? Pus or a bad smell. ? Ask your health care provider if you should clean the wound with mild soap and water. Doing this may include: ? Using a clean towel to pat the wound dry after cleaning it. Do not rub or scrub the wound. ? Applying a cream or ointment. Do this only as told by your health care provider. ? Covering the incision with a clean dressing. ? Ask your health care provider when you can leave the wound uncovered. Medicines ? If you were prescribed an antibiotic medicine, cream, or ointment, take or use the antibiotic as told by your health care provider. Do not stop taking or using the antibiotic even if your condition improves. ? Take ntzy-tme-wrjnabd and prescription medicines only as told by your health care provider. If you were prescribed pain medicine, take it at least 30 minutes before doing any wound care or as told by your health care provider. General instructions ? Return to your normal activities as told by your health care provider. Ask your health care provider what activities are safe. ? Do not scratch or pick at the wound. ? Keep all follow-up visits as told by your health care provider. This is important. ? Eat a diet that includes protein, vitamin A, vitamin C, and other nutrient-rich foods. These help the wound heal: ? Protein-rich foods include meat, dairy, beans, nuts, and other sources. ? Vitamin A-rich foods include carrots and dark green, leafy vegetables. ? Vitamin C-rich foods include citrus, tomatoes, and other fruits and vegetables. ? Nutrient-rich foods have protein, carbohydrates, fat, vitamins, or minerals. Eat a variety of healthy foods including vegetables, fruits, and whole grains. Contact a health care provider if: ? You received a tetanus shot and you have swelling, severe pain, redness, or bleeding at the injection site. ? Your pain is not controlled with medicine. ? You have more redness, swelling, or pain around the wound. ? You have more fluid or blood coming from the wound. ? Your wound feels warm to the touch. ? You have pus or a bad smell coming from the wound. ? You have a fever or chills. ? You are nauseous or you vomit. ? You are dizzy. Get help right away if: ? You have a red streak going away from your wound. ? The edges of the wound open up and separate. ? Your wound is bleeding and the bleeding does not stop with gentle pressure. ? You have a rash. ? You faint. ? You have trouble breathing. This information is not intended to replace advice given to you by your health care provider. Make sure you discuss any questions you have with your health care provider. Document Released: 01/10/2009 Document Revised: 11/30/2016 Document Reviewed: 10/18/2016 [employer] Interactive Patient Education ? 2017 [employer] Wound Check If you have a wound, it may take some time to heal. Eventually, a scar will form. The scar will also fade with time. It is important to take care of your wound while it is healing. This helps to protect your wound from infection. How should I take care of my wound at home? ? Some wounds are allowed to close on their own or are repaired at a later date. There are many different ways to close and cover a wound, including stitches (sutures), skin glue, and adhesive strips. Follow your health care provider's instructions about: ? Wound care. ? Bandage (dressing) changes and removal. ? Wound closure removal. ? Take medicines only as directed by your health care provider. ? Keep all follow-up visits as directed by your health care provider. This is important. ? Do not take baths, swim, or use a hot tub until your health care provider approves. You may shower as directed by your health care provider. ? Keep your wound clean and dry. What affects scar formation? Scars affect each person differently. How your body scars depends on: ? The location and size of your wound. ? Traits that you inherited from your parents (genetic predisposition). ? How you take care of your wound. Irritation and inflammation increase the amount of scar formation. ? Sun exposure. This can darken a scar. When should I call or see my health care provider? Call or see your health care provider if: ? You have redness, swelling, or pain at your wound site. ? You have fluid, blood, or pus coming from your wound. ? You have muscle aches, chills, or a general ill feeling. ? You notice a bad smell coming from the wound. ? Your wound separates after the sutures, libby, or skin adhesive strips have been removed. ? You have persistent nausea or vomiting. ? You have a fever. ? You are dizzy. When should I call 911 or go to the emergency room? Call 911 or go to the emergency room if: ? You faint. ? You have difficulty breathing. This information is not intended to replace advice given to you by your health care provider. Make sure you discuss any questions you have with your health care provider. Document Released: 01/07/2005 Document Revised: 09/14/2016 Document Reviewed: 01/13/2015 [employer] Patient Education ? 2018 [employer]. Skin Tear Care A skin tear is a wound in which the top layers of skin have peeled off the deeper skin or tissues underneath them. This is a common problem as people get older because the skin becomes thinner and more fragile. In addition, some medicines, such as oral corticosteroids, can lead to skin thinning if they are taken for long periods of time. A skin tear is often repaired with tape or skin adhesive strips. Depending on the location of the wound, a bandage (dressing) may be applied over the tape or skin adhesive strips. Follow these instructions at home: Wound care ? Clean the wound as told by your health care provider. You may be instructed to keep the wound dry for the first few days. If you are told to clean the wound: ? Wash the wound with mild soap and water or a salt?water (saline) solution. ? Rinse the wound with water to remove all soap. ? Do not rub the wound dry. Let the wound air dry. ? Change any dressings as told by your health care provider. This includes changing the dressing if it gets wet, gets dirty, or starts to smell bad. ? Do not scratch or pick at the wound. ? Protect the injured area until it has healed. ? Check your wound every day for signs of infection. Check for: ? More redness, swelling, or pain. ? More fluid or blood. ? Warmth. ? Pus or a bad smell. Medicines ? Take vfav-lrh-wkdvcxw and prescription medicines only as told by your health care provider. ? If you were prescribed an antibiotic medicine, take or apply it as told by your health care provider. Do not stop using the antibiotic even if your condition improves. General instructions ? Keep the dressing dry as told by your health care provider. ? Do not take baths, swim, or do anything that puts your wound underwater until your health care provider approves. ? Keep all follow-up visits as told by your health care provider. This is important. Contact a health care provider if: ? You have more redness, swelling, or pain around your wound. ? You have more fluid or blood coming from your wound. ? Your wound feels warm to the touch. ? You have pus or a bad smell coming from your wound. Get help right away if: ? You have a red streak that goes away from the skin tear. ? You have a fever and chills and your symptoms suddenly get worse. This information is not intended to replace advice given to you by your health care provider. Make sure you discuss any questions you have with your health care provider. Document Released: 12/27/2001 Document Revised: 11/27/2016 Document Reviewed: 02/22/2016 [employer] Patient Education ? 2018 [employer] Laceration Care, Adult A laceration is a cut that goes through all of the layers of the skin and into the tissue that is right under the skin. Some lacerations heal on their own. Others need to be closed with stitches (sutures), libby, skin adhesive strips, or skin glue. Proper laceration care minimizes the risk of infection and helps the laceration to heal better. How is this treated? If sutures or libby were used: ? Keep the wound clean and dry. ? If you were given a bandage (dressing), you should change it at least one time per day or as told by your health care provider. You should also change it if it becomes wet or dirty. ? Keep the wound completely dry for the first 24 hours or as told by your health care provider. After that time, you may shower or bathe. However, make sure that the wound is not soaked in water until after the sutures or libby have been removed. ? Clean the wound one time each day or as told by your health care provider: ? Wash the wound with soap and water. ? Rinse the wound with water to remove all soap. ? Pat the wound dry with a clean towel. Do not rub the wound. ? After cleaning the wound, apply a thin layer of antibiotic ointment?as told by your health care provider. This will help to prevent infection and keep the dressing from sticking to the wound. ? Have the sutures or libby removed as told by your health care provider. If skin adhesive strips were used: ? Keep the wound clean and dry. ? If you were given a bandage (dressing), you should change it at least one time per day or as told by your health care provider. You should also change it if it becomes dirty or wet. ? Do not get the skin adhesive strips wet. You may shower or bathe, but be careful to keep the wound dry. ? If the wound gets wet, pat it dry with a clean towel. Do not rub the wound. ? Skin adhesive strips fall off on their own. You may trim the strips as the wound heals. Do not remove skin adhesive strips that are still stuck to the wound. They will fall off in time. If skin glue was used: ? Try to keep the wound dry, but you may briefly wet it in the shower or bath. Do not soak the wound in water, such as by swimming. ? After you have showered or bathed, gently pat the wound dry with a clean towel. Do not rub the wound. ? Do not do any activities that will make you sweat heavily until the skin glue has fallen off on its own. ? Do not apply liquid, cream, or ointment medicine to the wound while the skin glue is in place. Using those may loosen the film before the wound has healed. ? If you were given a bandage (dressing), you should change it at least one time per day or as told by your health care provider. You should also change it if it becomes dirty or wet. ? If a dressing is placed over the wound, be careful not to apply tape directly over the skin glue. Doing that may cause the glue to be pulled off before the wound has healed. ? Do not pick at the glue. The skin glue usually remains in place for 5?10 days, then it falls off of the skin. General Instructions ? Take cspm-jzr-tujernv and prescription medicines only as told by your health care provider. ? If you were prescribed an antibiotic medicine or ointment, take or apply it as told by your doctor. Do not stop using it even if your condition improves. ? To help prevent scarring, make sure to cover your wound with sunscreen whenever you are outside after stitches are removed, after adhesive strips are removed, or when glue remains in place and the wound is healed. Make sure to wear a sunscreen of at least 30 SPF. ? Do not scratch or pick at the wound. ? Keep all follow-up visits as told by your health care provider. This is important. ? Check your wound every day for signs of infection. Watch for: ? Redness, swelling, or pain. ? Fluid, blood, or pus. ? Raise (elevate) the injured area above the level of your heart while you are sitting or lying down, if possible. Contact a health care provider if: ? You received a tetanus shot and you have swelling, severe pain, redness, or bleeding at the injection site. ? You have a fever. ? A wound that was closed breaks open. ? You notice a bad smell coming from your wound or your dressing. ? You notice something coming out of the wound, such as wood or glass. ? Your pain is not controlled with medicine. ? You have increased redness, swelling, or pain at the site of your wound. ? You have fluid, blood, or pus coming from your wound. ? You notice a change in the color of your skin near your wound. ? You need to change the dressing frequently due to fluid, blood, or pus draining from the wound. ? You develop a new rash. ? You develop numbness around the wound. Get help right away if: ? You develop severe swelling around the wound. ? Your pain suddenly increases and is severe. ? You develop painful lumps near the wound or on skin that is anywhere on your body. ? You have a red streak going away from your wound. ? The wound is on your hand or foot and you cannot properly move a finger or toe. ? The wound is on your hand or foot and you notice that your fingers or toes look pale or bluish. This information is not intended to replace advice given to you by your health care provider. Make sure you discuss any questions you have with your health care provider. Document Released: 04/03/2006 Document Revised: 09/02/2016 Document Reviewed: 03/30/2015 [employer] Patient Education ? 2017 [employer] Viruses or Bacteria What?s got you sick? Antibiotics only treat bacterial infections. Viral illnesses cannot be treated with antibiotics. When an antibiotic is not prescribed, ask your healthcare professional for tips on how to relieve symptoms and feel better. Usual Cause Illness Viruses Bacteria Antibiotic Needed Cold/Runny Nose NO Bronchitis/Chest Cold (in otherwise healthy children and adults) NO Whooping Cough Yes Flu NO Strep Throat Yes Sore Throat (except strep) NO Fluid in the middle ear (otitis media with effusion) NO Urinary Tract Infection Yes Antibiotics Aren?t Always the Answer www.cdc.gov/getsmart GET SMART Know When Antibiotics Work U.S. Department of Health and Human Services Centers for Disease Control and Prevention December 2013 Normal [facility] Coding Summaryon 03-21-2018 Coding Summary CODING DATE: 03/21/2018 [facility] STATUS: Home PAYOR: Medicaid HMO ADMIT DX: REASON FOR VISIT DX: R11.2 Nausea with vomiting, unspecified FINAL DX: PRINCIPAL: R11.2 Nausea with vomiting, unspecified SECONDARY: R19.7 Diarrhea, unspecified N92.6 Irregular menstruation, unspecified Z32.02 Encounter for test, result negative PROCEDURES DOCTOR NAME DATE NOTE: The code number assigned matches the documented diagnosis and / or procedure in the patient's chart. However, the narrative phrase printed from the coding software may appear abbreviated, or result in slightly different terminology. Coded By: Lloyd Hein' Date Saved: 03/21/2018 04:22 pm [facility] Coding Summary CODING DATE: 03/21/2018 [facility] STATUS: Home PAYOR: Medicaid HMO ADMIT DX: REASON FOR VISIT DX: R11.2 Nausea with vomiting, unspecified FINAL DX: PRINCIPAL: R11.2 Nausea with vomiting, unspecified SECONDARY: R19.7 Diarrhea, unspecified N92.6 Irregular menstruation, unspecified Z32.02 Encounter for test, result negative PROCEDURES DOCTOR NAME DATE NOTE: The code number assigned matches the documented diagnosis and / or procedure in the patient's chart. However, the narrative phrase printed from the coding software may appear abbreviated, or result in slightly different terminology. Coded By: Tim Hein Date Saved: 03/21/2018 04:21 pm [facility] CBC AUTO DIFFon 02-15-2018 Basophils Auto #/vol (Bld) 0.1 103/ul Normal 0.0-0.[address] [facility] Comment on above: Performed By: #### C BC ####[facility] [address] [place], [place] [id number] Jazmyn Basophils/100 WBC Auto (Bld) 0.4 % Normal 0.2-2.[address] [facility] Comment on above: Performed By: #### C BC ####[facility] [address] [place] [address]Ocmfvo Jazmyn Eosinophils Auto #/vol (Bld) 0.1 103/ul Normal 0.0-0.[address] [facility] Comment on above: Performed By: #### C BC ####[facility] [address] [place], [place] [id number] Jazmyn Eosinophils/100 WBC Auto (Bld) 0.4 % Critically low 0.9-7.[address] [facility] Comment on above: Performed By: #### C BC ####[facility] Rd[address]jrynda[address] [place], [place] [id number] Jazmyn Erythrocyte distribution width Auto Ratio (RBC) 12.4 % Normal 11.0-15.[address] [facility] Comment on above: Performed By: #### C BC ####[facility] [address] [place], [place] [id number] Jazmyn Hematocrit Auto Volume Fraction (Bld) 43.4 % Normal 36.0-48.[address] [facility] Comment on above: Performed By: #### C BC ####[facility] [address] [place], [place] [id number] Jazmyn Hemoglobin mass conc (Bld) 15.0 g/dL Normal 12.0-16.[address] [facility] Comment on above: Performed By: #### C BC ####[facility] [address] [place], [place] [address]Gerken Jazmyn IG # 0.02 10e3/ul Normal 0.00-0.[address] [facility] Comment on above: Performed By: #### C BC ####[facility] [address]ou[address] [place], [place] [id number] Jazmyn IG % 0.1 % Normal 0.0-0.[address] [facility] Comment on above: Performed By: #### C BC ####[facility] [address]wmb[address]ad[address] [place], [place] [id number] Jazmyn Lymphocytes Auto #/vol (Bld) 1.9 103/ul Normal 1.2-3.[address] [facility] Comment on above: Performed By: #### C BC ####[facility] [address] [place], [place] [address]Gerken Jazmyn Lymphocytes/100 WBC Auto (Bld) 14.2 % Critically low 20.5-60.[address] [facility] Comment on above: Performed By: #### C BC ####[facility] [address] [place] [id number] Jazmyn MANUAL DIFF REQ NO Normal [facility] Comment on above: Performed By: #### C BC ####[facility] [address] [place] [id number] Jazmyn MCH Auto Entitic mass (RBC) 29.5 pg Normal 26.7-34.[address] [facility] Comment on above: Performed By: #### C BC ####[facility] [address] [place], [place] [id number] Jazmyn MCHC Auto mass conc (RBC) 34.6 g/dL Normal 29.9-35.[address] [facility] Comment on above: Performed By: #### C BC ####[facility] [address] [place] [address] Jazmyn MCV Auto Entitic volume (RBC) 85.3 fL Normal 79.1-95.[address] [facility] Comment on above: Performed By: #### C BC ####[facility] [address] [place] [address] Jazmyn Monocytes Auto #/vol (Bld) 0.5 103/ul Normal 0.3-0.[address] [facility] Comment on above: Performed By: #### C BC ####[facility] [address] [place], [place] [id number] Jazmyn Monocytes/100 WBC Auto (Bld) 3.6 % Normal 1.7-12.[address] [facility] Comment on above: Performed By: #### C BC ####[facility] [address] [place], [place] [address]Gerken Jazmyn Neutrophils Auto #/vol (Bld) 11.1 103/ul Critically high 1.4-6.[address] [facility] Comment on above: Performed By: #### C BC ####[facility] [address] [place], [place] [address]Gerken Jazmyn Neutrophils/100 WBC Auto (Bld) 81.3 % Critically high 43.0-75.[address] [facility] Comment on above: Performed By: #### C BC ####[facility] F[address] Jazmyn Platelet mean volume Auto Entitic volume (Bld) 11.2 fL Normal 9.5-13.[address] [facility] Comment on above: Performed By: #### C BC ####[facility] [address] [place] [address] Jazmyn Platelets Auto #/vol (Bld) 277 103/ul Normal 150-[address] [facility] Comment on above: Performed By: #### C BC ####[facility] [address] [place] [address] Jazmyn RBC Auto #/vol (Bld) 5.09 106/ul Normal 3.40-5.30 [facility] Comment on above: Performed By: #### C BC ####[facility] [address] [place] [address] Jazmyn WBC Auto #/vol (Bld) 13.6 103/ul Critically high 4.0-11.0 [facility] Comment on above: Performed By: #### C BC ####[facility] [address] [place] [address] Jazmyn ER URINE PROFILEon 8 BILIRUBIN Negative Normal NEGATIVE [facility] Comment on above: Performed By: #### E RUR ####[facility] [address] [place] [address] Jazmyn BLOOD Negative Normal NEGATIVE [facility] Comment on above: Performed By: #### E RUR ####[facility] [address] [place] [address] Jazmyn CLARITY CLEAR Normal [facility] Comment on above: Performed By: #### E RUR ####[facility] [address] [place] [address] Jazmyn COLOR LT. YELLOW Normal YELLOW [facility] Comment on above: Performed By: #### E RUR ####[facility] [address] [place] [address] Jazmyn ERUAHD A micrscopic examination will be performed if indicated. Normal [facility] Comment on above: Performed By: #### E RUR ####[facility] [address] [place] [id number] Jazmyn GLUCOSE Negative Normal NEGATIVE [facility] Comment on above: Performed By: #### E RUR ####[facility] [address] [place], [place] [address]Emzsjk Jazmyn KETONES Negative Normal NEGATIVE [facility] Comment on above: Performed By: #### E RUR ####[facility] [address] [place] [id number] Jazmyn LEUKOCYTES Negative Normal NEGATIVE [facility] Comment on above: Performed By: #### E RUR ####[facility] [address] [place] [address] Jazmyn NITRITE Negative Normal NEGATIVE [facility] Comment on above: Performed By: #### E RUR ####[facility] [address] [place] [address] Jazmyn pH 7.0 Normal 5-[address] [facility] Comment on above: Performed By: #### E RUR ####[facility] [address] [place] [address] Jazmyn Protein mass conc Negative Normal [facility] Comment on above: Performed By: #### E RUR ####[facility] [address] [place], [place] [address]Gerken Jazmyn SPEC GRAVITY 1.015 Normal 1.005-<=1.[address] [facility] Comment on above: Performed By: #### E RUR ####[facility] [address] [place], [place] [address]Gerken Jazmyn UR MICRO IND NOT INDICATED Normal [facility] Comment on above: Performed By: #### E RUR ####[facility] [address] [place] [address] Jazmyn UROBILINOGEN 0.2 EU/dl Normal [facility] Comment on above: Performed By: #### E RUR ####[facility] [address] [place] [address] Jazmyn MONOon 02-15-2018 Monocytes Auto #/vol (Bld) Negative Normal NEGATIVE [facility] Comment on above: Performed By: #### M SAVANNAH ####[facility] [address] [place] [address]GbqoybTrish Eldridge URon 02-15-2018 , QUAL Negative Normal NEGATIVE [facility] Comment on above: Performed By: #### P REGU ####[facility] [address] Jazmyn PROF 14(COMP METB)on 018 Albumin mass conc 4.6 g/dL Normal 3.5-5.0 [facility] Comment on above: Performed By: #### C MP ####[facility] [address] [place] [address] Jamzyn Albumin/Globulin mass ratio 1.1 {ratio} Normal [facility] Comment on above: Performed By: #### C MP ####[facility] [address] [place], [place] [address]Gerken Jazmyn ALP enzyme act/vol 194 U/L Normal 130-525 [facility] Comment on above: Performed By: #### C MP ####[facility] [address] [place] [address] Jazmyn ALT enzyme act/vol 24 U/L Normal 9-52 [facility] Comment on above: Performed By: #### C MP ####[facility] [address] [place] [address] Jazmyn Anion gap 3 molar conc 12.1 mmol/L Normal [facility] Comment on above: Performed By: #### C MP ####[facility] [address] Jazmyn AST enzyme act/vol 17 U/L Normal 14-36 [facility] Comment on above: Performed By: #### C MP ####[facility] [address] [place] [address] Jazmyn Bilirubin Ql (U) 0.4 mg/dL Normal 0.2-1.3 The [facility] Comment on above: Performed By: #### C MP ####[facility] [address] [place], [place] [address]Thopzm Jazmyn Calcium mass conc 9.5 mg/dL Normal 8.4-10.2 [facility] Comment on above: Performed By: #### C MP ####[facility] [address] [place], [place] [address]Jfgliy Jazmyn Chloride molar conc 104 mmol/L Normal 98-107 [facility] Comment on above: Performed By: #### C MP ####[facility] [address] [place] [id number] Jazmyn CO2 molar conc 28.9 mmol/L Normal 22.0-30.0 [facility] Comment on above: Performed By: #### C MP ####[facility] [address] [place] [address]Gerken Jazmyn Creatinine mass conc 0.77 mg/dL Normal 0.52-1.04 [facility] Comment on above: Performed By: #### C MP ####[facility] [address] [place], [place] [address]Fvplky Jazmyn Globulin Calculated mass conc (S) 4.0 g/dL Normal [facility] Comment on above: Performed By: #### C MP ####[facility] [address] [place], [place] [address]Ifyyod Jazmyn Glucose mass conc 116 mg/dL Critically high 74-106 Th [facility] Comment on above: Performed By: #### C MP ####[facility] [address] [place] [address]Gerken Jazmyn Potassium molar conc 4.0 mmol/L Normal 3.4-5.0 [facility] Comment on above: Performed By: #### C MP ####[facility] [address] [place] [address]Ger[address] Jazmyn Protein mass conc 8.6 g/dL Critically high 6.1-8.2 Th [facility] Comment on above: Performed By: #### C MP ####[facility] [address] [place], [place] [address]Bhxqix Jazmyn Sodium molar conc 141 mmol/L Normal 137-145 [facility] Comment on above: Performed By: #### C MP ####[facility] [address] [place], [place] [address]Mqmyic Jazmyn Urea nitrogen mass conc 10.0 mg/dL Normal 6.4-19.3 [facility] Comment on above: Performed By: #### C MP ####[facility] [address] [place], [place] [address]Grgscq Jazmyn Urea nitrogen/Creatinine mass ratio 13.0 mg/mg Normal [facility] Comment on above: Performed By: #### C MP ####[facility] [address] [place], [place] [address]Rpkypm Jazmyn XR HAND RT MIN 3Von 06-03-19 18 XR HAND RT MIN 3V [address] [place] [address] Patient: RUPAL RUBIO Exam Date: 06/03/2017DOB: 2005 Gender:F : JANET GONZALES Admission #: [id number] : DR MIRA FUENTES DTanya Order #: [id number] HERE TO VIEW EXAM RADIOLOGY REPORT PROCEDURE: RADIOGRAPH HAND RIGHT MIN 3 VIEWS COMPARISON: None. INDICATIONS: Acute right hand injury attention first digit; dog bite to first digit FINDINGS: BONES: No fracture, acute abnormality, or significant arthropathy. SOFT TISSUES: No visible soft tissue swelling or radiopaque foreign body. OTHER: Negative. CONCLUSION: 1. No radiopaque foreign body. Dictated by: Yara Miller M.D. on 06/03/2017 at 15:54 Approved by: Yara Miller M.D. on 06/03/2017 at 15:58 Normal [facility] Vital Signs Date Time Vital Sign Value Performing Clinician Facility 07-28-2023 06:52-0400 Diastolic blood pressure 86 mm[Hg] [facility] Phone: [facility] 07-28-2023 06:52-0400 Heart rate 86 /min [facility] Phone: [facility] 07-28-2023 06:52-0400 Respiratory rate 16 /min [facility] Phone: [facility] 07-28-2023 06:52-0400 SaO2% (BldA) [Mass fraction] 97 % [facility] Work Phone: [facility] 07-28-2023 06:52-0400 Systolic blood pressure 136 mm[Hg] [facility] Work Phone: [facility] 07-28-2023 02:19-0400 Body height 175.26 cm [facility] Work Phone: [facility] 07-28-2023 02:19-0400 Body temperature 98.2 [degF] [facility] [facility] 07[facility]2023 02:19-0400 Body weight 77.11 kg [facility] Work Phone: [facility] 07-25-2023 07:54-0400 Body temperature 98.4 [degF] [facility] Work Phone: [facility] 07-25-2023 07:54-0400 Diastolic blood pressure 98 mm[Hg] [facility] Work Phone: [facility] 07-25-2023 07:54-0400 Heart rate 103 /min [facility] Work Phone: [facility] 07-25-2023 07:54-0400 Respiratory rate 16 /min [facility] Work Phone: [facility] 07-25-2023 07:54-0400 SaO2% (BldA) [Mass fraction] 98 % [facility] Work Phone: [facility] 07-25-2023 07:54-0400 Systolic blood pressure 146 mm[Hg] [facility] Work Phone: [facility] 07-23-2023 05:12-0400 Body height 172.72 cm [facility] Work Phone: [facility] 07-23-2023 05:12-0400 Body weight 78.47 kg [facility] Work Phone: [facility] 07-20-2023 21:00-0400 Body height 172.72 cm [facility] Work Phone: [facility] 07-20-2023 21:00-0400 Body weight 79.37 kg [facility] Work Phone: [facility] 07-20-2023 20:39-0400 Body temperature 97.2 [degF] [facility] Work Phone: [facility] 07-20-2023 20:39-0400 Diastolic blood pressure 82 mm[Hg] [facility] Work Phone: [facility] 07-20-2023 20:39-0400 Heart rate 84 /min [facility] Work Phone: [facility] 07-20-2023 20:39-0400 Respiratory rate 16 /min [facility] Work Phone: [facility] 07-20-2023 20:39-0400 Systolic blood pressure 136 mm[Hg] [facility] Work Phone: [facility] 07-07-2023 22:00-0400 Body temperature 97.6 [degF] [facility] Work Phone: [facility] 07-07-2023 22:00-0400 Diastolic blood pressure 84 mm[Hg] [facility] Work Phone: [facility] 07-07-2023 22:00-0400 Systolic blood pressure 135 mm[Hg] [facility] Work Phone: [facility] 07-07-2023 21:24-0400 Body weight 78.47 kg [facility] Work Phone: [facility] 07-07-2023 21:21-0400 Body height 172.72 cm [facility] Work Phone: [facility] 06-28-2023 22:02-0400 Body height 172.72 cm [facility] Work Phone: [facility] 06-28-2023 22:02-0400 Body weight 62.59 kg [facility] Work Phone: [facility] 06-28-2023 20:50-0400 Body temperature 97 [degF] [facility] Work Phone: [facility] 06-28-2023 20:50-0400 Diastolic blood pressure 79 mm[Hg] [facility] Work Phone: [facility] 06-28-2023 20:50-0400 Heart rate 79 /min [facility] Work Phone: [facility] 06-28-2023 20:50-0400 Respiratory rate 16 /min [facility] Work Phone: [facility] 06-28-2023 20:50-0400 SaO2% (BldA) [Mass fraction] 98 % [facility] Work Phone: [facility] 06-28-2023 20:50-0400 Systolic blood pressure 131 mm[Hg] [facility] Work Phone: [facility] 06-20-2023 22:41-0500 Body height 172.72 cm [facility] Work Phone: [facility] 06-20-2023 22:41-0500 Body weight 72.57 kg [facility] Work Phone: [facility] 06-20-2023 22:35-0500 Body temperature 97.9 [degF] [facility] Work Phone: [facility] 06-20-2023 22:35-0500 Diastolic blood pressure 80 mm[Hg] [facility] Work Phone: [facility] 06-20-2023 22:35-0500 Respiratory rate 16 /min [facility] Work Phone: [facility] 06-20-2023 22:35-0500 SaO2% (BldA) [Mass fraction] 97 % [facility] Work Phone: [facility] 06-20-2023 22:35-0500 Systolic blood pressure 125 mm[Hg] [facility] Work Phone: [facility] 06-05-2023 20:30-0500 Respiratory rate 16 /min [facility] Work Phone: [facility] 06-05-2023 19:04-0500 Body height 172.72 cm [facility] Work Phone: [facility] 06-05-2023 19:04-0500 Body weight 69.85 kg [facility] Work Phone: [facility] 06-05-2023 19:00-0500 Body temperature 96.6 [degF] [facility] Work Phone: [facility] 06-05-2023 19:00-0500 Diastolic blood pressure 71 mm[Hg] [facility] Work Phone: [facility] 06-05-2023 19:00-0500 SaO2% (BldA) [Mass fraction] 99 % [facility] Work Phone: [facility] 06-05-2023 19:00-0500 Systolic blood pressure 123 mm[Hg] [facility] Work Phone: [facility] 05-25-2023 13:43-0500 Body mass index (BMI) [Ratio] 23.87 kg/m2 Chuck Visci DO Work Phone: [facility] 05-25-2023 13:43-0500 Body weight 71.22 kg Chuck Visci DO Work Phone: [facility] 05-25-2023 13:43-0500 Diastolic blood pressure 72 mm[Hg] Chuck Visci DO Work Phone: [facility] 05-25-2023 13:43-0500 Systolic blood pressure 110 mm[Hg] Chuck Dowi DO Work Phone: [facility] 05-24-2023 01:34-0500 Respiratory rate 16 /min [facility] Work Phone: [facility] 05-24-2023 01:26-0500 Diastolic blood pressure 80 mm[Hg] Services [facility] Work Phone: [facility] 05-24-2023 01:26-0500 Heart rate 68 /min [facility] Work Phone: [facility] 05-24-2023 01:26-0500 Systolic blood pressure 138 mm[Hg] Services [facility] Work Phone: [facility] 05-24-2023 00:29-0500 Body height 172.72 cm Services [facility] Work Phone: [facility] 05-24-2023 00:29-0500 Body weight 70.3 kg Services [facility] Work Phone: [facility] 05-24-2023 00:24-0500 Body temperature 97.3 [degF] Services [facility] Work Phone: [facility] 05-24-2023 00:24-0500 Diastolic blood pressure 84 mm[Hg] Services [facility] Work Phone: [facility] 05-24-2023 00:24-0500 Heart rate 73 /min Services [facility] Work Phone: [facility] 05-24-2023 00:24-0500 SaO2% (BldA) [Mass fraction] 100 % Services [facility] Work Phone: [facility] 05-24-2023 00:24-0500 Systolic blood pressure 140 mm[Hg] Services [facility] Work Phone: [facility] 02-01-2023 13:15-0400 Body height 175.5 cm Sloan Mohr MD Work Phone: [facility] 02-01-2023 13:15-0400 Body mass index (BMI) [Ratio] 19.42 kg/m2 Sloan Mohr MD Work Phone: [facility] 02-01-2023 13:15-0400 Body weight 59.8 kg Sloan Mohr MD Work Phone: [facility] 01-12-2023 00:31-0400 Diastolic blood pressure 64 mm[Hg] [facility] Work Phone: [facility] 01-12-2023 00:31-0400 Heart rate 57 /min [facility] Work Phone: [facility] 01-12-2023 00:31-0400 Respiratory rate 16 /min [facility] Work Phone: [facility] 01-12-2023 00:31-0400 SaO2% (BldA) [Mass fraction] 100 % [facility] Work Phone: [facility] 01-12-2023 00:31-0400 Systolic blood pressure 106 mm[Hg] [facility] Work Phone: [facility] 01-11-2023 22:21-0400 Body height 172.72 cm [facility] Work Phone: [facility] 01-11-2023 22:21-0400 Body temperature 98.9 [degF] [facility] Work Phone: [facility] 01-11-2023 22:21-0400 Body weight 59 kg [facility] Work Phone: [facility] 01-22-2022 22:24-0400 Body height 175.26 cm [facility] Work Phone: [facility] 01-22-2022 22:24-0400 Body temperature 98.6 [degF] [facility] Work Phone: [facility] 01-22-2022 22:24-0400 Body weight 66.9 kg [facility] Work Phone: [facility] 01-22-2022 22:24-0400 Diastolic blood pressure 70 mm[Hg] Services [facility] Work Phone: [facility] 01-22-2022 22:24-0400 Heart rate 60 /min Services [facility] Work Phone: [facility] 01-22-2022 22:24-0400 Respiratory rate 18 /min Services [facility] Work Phone: [facility] 01-22-2022 22:24-0400 SaO2% (BldA) [Mass fraction] 99 % Services [facility] Work Phone: [facility] 01-22-2022 22:24-0400 Systolic blood pressure 107 mm[Hg] Services [facility] Work Phone: [facility] 01-05-2022 15:28-0400 Body height 173 cm Vernell Mckeon Work Phone: TE-Iisdbmhyck-Tbut usky H DO Work Phone: 01-05-2022 15:28-0400 Body mass index (BMI) [Ratio] 21.78 kg/m2 Vernell Mckeon Work Phone: IA-Vmfzuijwtn-Tbmr usky H DO Work Phone: 01-05-2022 15:28-0400 Body surface area Derived from formula 1.78 m2 Vernell Mckeon Work Phone: SG-Hbkqchtpuh-Jjzx usky H DO Work Phone: 01-05-2022 15:28-0400 Body temperature 96.6 [degF] Vernell Mckeon Work Phone: QZ-Uodevwohas-Ofbp usky H DO Work Phone: 01-05-2022 15:28-0400 Body weight 65.2 kg Vernell Mckeon Work Phone: FC-Cejpmzmjao-Lizh usky H DO Work Phone: 01-05-2022 15:28-0400 Diastolic blood pressure 73 mm[Hg] Vernell Bettye Linda Work Phone: XX-Syofaxbhfc-Sudn usky H DO Work Phone: 01-05-2022 15:28-0400 Heart rate 91 /min Vernell Bettye Linda Work Phone: NX-Lhpkvzhbji-Bhdn usky H DO Work Phone: 01-05-2022 15:28-0400 Respiratory rate 20 /min Vernell Wen Linda Work Phone: QH-Wufaeoaxeg-Soio usky H DO Work Phone: 01-05-2022 15:28-0400 SaO2% (BldA) [Mass fraction] 98 % Vernell Bettye Linda Work Phone: DK-Nxmopdrukk-Gnjg usky H DO Work Phone: 01-05-2022 15:28-0400 Systolic blood pressure 124 mm[Hg] Vernell Bettye Linda Work Phone: BD-Xuhxtbsimd-Qqot usky H DO Work Phone: 01-05-2022 15:28-0400 93 1 Vernell Bettye Linda Work Phone: QQ-Mnyvimpqbu-Pdti usky H DO Work Phone: Comment on above: 06-06_SPerc 01-05-2022 15:28-0400 78 1 Vernell Bettye Linda Work Phone: IW-Xbjwhkmfmy-Clup usky H DO Work Phone: Comment on above: 06-06_WPerc 01-05-2022 15:28-0400 55 1 Vernell Bettye Linda Work Phone: LJ-Rtyoksqspj-Sdvg usky H DO Work Phone: Comment on above: BMIPerc 12-30-2020 13:29-0400 Body height 171.5 cm Vernell Mckeon Work Phone: QY-Eaeuqfgjih-Oomz lands Work Phone: 12-30-2020 13:29-0400 Body mass index (BMI) [Ratio] 21.05 kg/m2 Vernell Wen Linda Work Phone: TP-Mesdlzgusi-Geas lands Work Phone: 12-30-2020 13:29-0400 Body surface area Derived from formula 1.73 m2 Vernell Wen Linda Work Phone: AZ-Rednkdhbka-Lwgl lands Work Phone: 12-30-2020 13:29-0400 Body weight 61.9 kg Vernell Wen Linda Work Phone: UP-Bchaezolva-Kjao lands Work Phone: 12-30-2020 13:29-0400 Diastolic blood pressure 71 mm[Hg] Vernell Bettye Linda Work Phone: HT-Qcriygtftc-Sxbm lands Work Phone: 12-30-2020 13:29-0400 Heart rate 83 /min Vernell Wen Linda Work Phone: SX-Tbraegvmzo-Ztrg lands Work Phone: 12-30-2020 13:29-0400 Systolic blood pressure 118 mm[Hg] Vernell Bettye Linda Work Phone: OV-Cismrybviz-Xgaz lands Work Phone: 12-30-2020 13:29-0400 91 1 Vernell Bettye Linda Work Phone: NP-Jgivkhbjby-Nibp lands Work Phone: Comment on above: -_SPe 12-30-2020 13:29-0400 73 1 Vernellmartin Mckeon Work Phone: TZ-Zmvetkvbcv-Sznn lands Work Phone: Comment on above: 2-_[facility] 12-30-2020 13:29-0400 51 1 Vernell Torreshoustonbreann Work Phone: SE-Hzmpmvpdyq-Dysj lands Work Phone: Comment on above: BMIPerc 05-01-2019 17:18-0500 BMI (Body Mass Index) 20.47 kg/m2 Max Wiznitzer RV-Jdysfsobup-Plhr lands Work Phone: 05-01-2019 17:18-0500 Body weight 61.25 kg Max Wiznitzer PM-Jylgncrdwu-Ko re [employer] Work Phone: 05-01-2019 17:18-0500 BP Diastolic 72 mm[Hg] Max Wiznitzer KI-Zsnuqppsek-Wd re lands Work Phone: 05-01-2019 17:18-0500 BP Systolic 128 mm[Hg] Max Wiznitzer IM-Ceuvqrsrar-Ie re [employer] Work Phone: 05-01-2019 17:18-0500 BSA (Body Surface Area) 1.73 m2 Max Wiznitzer BP-Ghybwbdnhv-Qbra lands Work Phone: 05-01-2019 17:18-0500 Height 173 cm Max Wiznitzer IT-Dtndfwrasq-Og re [employer] Work Phone: 05-01-2019 17:18-0500 Pulse (Heart Rate) 83 /min Max Wiznitzer MG-Pediatrics -Fire lands Work Phone: 05-01-2019 17:18-0500 95 1 Max Wiznitzer CY-Wjxitwhxgw-Xd re [employer] Work Phone: Comment on above: 2-20 Stature Percentile 05-01-2019 17:18-0500 77 1 Max Wiznitzer UZ-Cmcnbmaojn-Yd re [employer] Work Phone: Comment on above: 2-20 Weight Percentile 05-01-2019 17:18-0500 54 1 Max Wiznitzer JT-Vhwxanxmyz-Dl re lands Work Phone: Comment on above: BMI Percentile Encounters Encounter Date Encounter Type Care Provider Facility Start: 08-21-2023 End: 08-21-2023 ambulatory CHUCK A VISCI Not Available Start: 07-28-2023 End: 07-28-2023 Emergency department patient visit Services [facility] Facility:[facility] Start: 07-28-2023 End: 07-28-2023 Emergency department patient visit Services [facility] Work Phone: [facility] Work Phone: Start: 07-23-2023 End: 07-25-2023 Evaluation and management of inpatient Services [facility] Facility:[facility] Start: 07-23-2023 End: 07-25-2023 Evaluation and management of inpatient Services [facility] Work Phone: [facility] [place] Work Phone: Start: 07-20-2023 End: 07-20-2023 ambulatory Services [facility] Start: 07-20-2023 End: 07-20-2023 ambulatory [facility] Work Phone: [facility] Work Phone: Start: 07-20-2023 End: 07-20-2023 Patient encounter procedure Services [facility] Work Phone: [facility]-3 [place] Labor - O/P Start: 07-19-2023 End: 07-19-2023 ambulatory CHUCK A VISCI Not Available Start: 07-12-2023 End: 07-12-2023 ambulatory CHUCK A VISCI Not Available Start: 07-07-2023 End: 07-08-2023 ambulatory Services [facility] Facility:[facility] Start: 07-07-2023 End: 07-07-2023 ambulatory [facility] Work Phone: [facility] Work Phone: Start: 07-07-2023 End: 07-07-2023 Patient encounter procedure Services [facility] Work Phone: [facility]-3 [facility] Labor - O/P Start: 07-05-2023 End: 07-05-2023 ambulatory CHUCK A VISCI Not Available Start: 06-28-2023 End: 06-28-2023 ambulatory Carlos Printy Facility:[facility] Start: 06-28-2023 End: 06-28-2023 Patient encounter procedure Services [facility] Work Phone: [facility]3 [facility] Labor - O/P Start: 06-28-2023 End: 06-28-2023 ambulatory Chuck Visci Facility:[facility] Start: 06-28-2023 End: 06-28-2023 ambulatory [facility] Work Phone: [facility] Work Phone: Start: 06-28-2023 End: 06-28-2023 Departed Referred Services Family [facility] Work Phone: [facility]-Lab [place] Work Phone: Start: 06-23-2023 End: 06-23-2023 ambulatory CHUCK VISCI Not Available Start: 06-21-2023 End: 06-21-2023 ambulatory [facility] Facility:[facility] Start: 06-20-2023 End: 06-21-2023 Patient encounter procedure Services Family [facility] Work Phone: [facility]3 [facility] Labor - O/P Start: 06-08-2023 End: 06-08-2023 ambulatory CHUCK A VISCI Not Available Start: 06-05-2023 End: 06-05-2023 ambulatory Chuck Visci Facility:[facility] Start: 06-05-2023 End: 06-05-2023 ambulatory [facility] Work Phone: [facility] Work Phone: Start: 06-05-2023 End: 06-05-2023 Patient encounter procedure Services [facility] Work Phone: [facility]3 [facility] Labor - O/P Start: 05-25-2023 End: 05-25-2023 ambulatory CHUCK A VISCI Not Available Start: 05-25-2023 End: 05-25-2023 Office outpatient visit 15 minutes Chuck A Visci DO Work Phone: [facility] Comment on above: 31 weeks gestation o f (Primary Dx); History of marijuana use; Attention deficit hyperactivity disorder (ADHD), unspecified ADHD type (CMS/HCC); History of seizures; Anxiety during , antepartum, third trimester; care, first in third trimester Start: 05-24-2023 External Result Encounter Rich wilda A Visci DO Work Phone: [facility] Unsolicited Start: 05-24-2023 External Result Encounter Rich wilda A Visci DO Work Phone: [facility] External [facility] Unsolicited Start: 05-24-2023 End: 05-24-2023 ambulatory Chuck Visci Facility:[facility] Start: 05-23-2023 End: 05-24-2023 ambulatory Services [facility] Work Phone: [facility] Work Phone: Start: 05-23-2023 End: 05-24-2023 Patient encounter procedure Services [facility] Work Phone: [facility] Labor - O/P Start: 05-10-2023 End: 05-10-2023 ambulatory CHUCK A VISCI Not Available Start: 05-10-2023 End: 05-10-2023 ambulatory CHUCK A VISCI Not Available Start: 04-19-2023 End: 04-19-2023 ambulatory CHUCK A VISCI Not Available Start: 03-13-2023 End: 03-13-2023 ambulatory CHUCK A VISCI Not Available Start: 02-01-2023 End: 02-01-2023 Office outpatient visit 15 minutes Sloan Mohr MD Work Phone: [facility] Comment on above: 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 Work Phone: Start: 07-29-2022 End: 07-29-2022 Departed Referred LETI Cuello Work Phone: [facility] Start: 07-12-2022 AUDIT Vernell Mckeon Work Phone: PZ-Ftgrutbfpq-Vyalixry y-Admin RBC 585 Work Phone: Start: 05-02-2022 AUDIT Vernell Mckeon Work Phone: FF-Gqbgvkdvdd-Vumijnxi 1600 Work Phone: Start: 02-25-2022 AUDIT Vernell Mckeon Work Phone: CY-Vaaqkupsag-Vkfcvkzk 1600 Work Phone: Start: 01-22-2022 End: 01-23-2022 Emergency department patient visit [facility] Work Phone: [facility]-Emergency Room Start: 01-05-2022 ambulatory Ms. Vernell Cole Linda Facility: Start: 01-05-2022 Patient encounter procedure Vernell Mckeon Work Phone: JT-Worvuerwzj-Dipqhcey H DO Work Phone: Start: 12-21-2021 AUDIT Vernell Mckeon Work Phone: DJ-Vuzqkdhset-Hqqbbidk ook [address] Work Phone: Start: 11-05-2021 AUDIT Vernell Mckeon Work Phone: PV-Xgxcwflyxk-Ukqllpkd ook [address] Work Phone: Start: 08-31-2021 AUDIT Vernell Mckeon Work Phone: FX-Llqrhsytzr-Lwjdrnss ook [address] Work Phone: Start: 06-29-2021 AUDIT Vernell Mckeon Work Phone: AV-Gelngemqob-Cgcntdkp ook [address] Work Phone: Start: 05-13-2021 AUDIT Vernell Mckeon Work Phone: KH-Jnoswqyerc-Njbxdx 220 Work Phone: Start: 04-15-2021 AUDIT Vernell Mckeon Work Phone: VP-Bwnclhzdpq-Alwvngze y-Admin RBC 585 Work Phone: Start: 12-30-2020 Office outpatient vi sit 15 minutes Vernell Mckeon Work Phone: AM-Hagqkszadt-Yjciurcu s Work Phone: Start: 11-17-2020 AUDIT Vernell Mckeon Work Phone: YM-Xjswuslmgn-Djwutemm y-Admin RBC 585 Work Phone: Start: 05-01-2019 Patient encounter procedure Max Wiznitzer WM-Xruibfeymq-Oxzffnnn s Work Phone: Start: 10-31-2018 Patient encounter procedure Max Wiznitzer KS-Gremvtflob-Euueekve s Work Phone: Start: 05-02-2018 Patient encounter procedure Max Wiznitzer EL-Hbunnkixwv-Ukvfqslo s Work Phone: Start: 02-15-2018 End: 02-15-2018 Patient encounter procedure MIRA FUENTES Facility: Start: 10-04-2017 Patient encounter procedure Max Wiznitzer XA-Tsqqyqzmoi-Qiuvvabe s Work Phone: Start: 06-03-2017 End: 06-03-2017 Patient encounter procedure MIRA FUENTES Facility:[facility] Procedures Date Procedure Procedure Detail Performing Clinician Start: 07-20-2023 Urine culture Services [facility] Work Phone: Start: 07-07-2023 Urine culture [facility] Work Phone: Start: 06-28-2023 Streptococcus agalac tiae culture [facility] Work Phone: Start: 06-28-2023 Urine culture [facility] Work Phone: Start: 06-05-2023 Urine culture Services [facility] Work Phone: Start: 05-25-2023 Urnls dip stick/tabl et rgnt non-auto w/o micrscp Chuck Vaz Visci DO Work Phone: Start: 05-24-2023 Urine culture [facility] Work Phone: Start: 05-24-2023 Ftl fibronectin cerv icovag secretions semi-alex Chuck Vaz Visci DO Work Phone: Start: 05-24-2023 Urnls dip stick/tabl et reagent auto microscopy Chuck Vaz Visci DO Work Phone: Plan of Treatment Date Care Activity Detail Author Start: 11-14-2053 Zoster Vaccines (1 o f 2) Zoster Vaccines (1 of 2) [facility] Start: 07-28-2023 Bacteria identified in Urine by Culture [facility] Start: 07-28-2023 Computed tomography of abdomen and pelvis with contrast CT abdomen pelvis w con [facility] Start: 07-28-2023 CT Abdomen and Pelvi s W contrast IV [facility] Start: 07-25-2023 [facility] Start: 07-23-2023 Hospital admission [facility] Start: 07-23-2023 Hospital admission [facility] Start: 07-20-2023 End: 07-20-2023 [facility] Start: 07-20-2023 Hospital admission [facility] Start: 07-20-2023 Bacteria identified in Urine by Culture [facility] Start: 07-07-2023 [facility] Start: 07-07-2023 Hospital admission [facility] Start: 07-07-2023 [facility] Start: 07-07-2023 Bacteria identified in Urine by Culture [facility] Start: 06-28-2023 [facility] Start: 06-28-2023 Hospital admission [facility] Start: 06-28-2023 Bacteria identified in Urine by Culture Urine Culture [facility] Start: 06-28-2023 Group B Streptococcu s Culture Group B Streptococcus Culture [facility] Start: 06-21-2023 [facility] Start: 06-20-2023 Hospital admission [facility] Start: 06-05-2023 [facility] Start: 06-05-2023 Hospital admission [facility] Start: 06-05-2023 [facility] Start: 06-05-2023 Bacteria identified in Urine by Culture [facility] Start: 06-05-2023 End: 06-05-2023 Patient encounter procedure 06/05/2023 1:00 PM EST Routine [facility] [address] [place] [id number] Visci, Chuck A, DO [address] [place] [address] [facility] Start: 05-25-2023 End: 05-25-2023 Patient encounter procedure 05/25/2023 1:00 PM EST Routine [facility] [address] [place] [address] Visci, Chuck A, DO [address] [place] [address] [facility] Start: 05-24-2023 Bacteria identified in Urine by Culture Urine Culture [facility] Start: 05-24-2023 [facility] Start: 05-24-2023 Hospital admission [facility] Start: 02-01-2023 FUV, Provider: Sloan Mohr, Status: Pen, Time: 1:40 PM FUV, Provider: Sloan Mohr, Status: Pen, Time: 1:40 PM LG-Ezhjyoarek-Przkz logy-Admin RBC 585 Work Phone: Start: 02-01-2023 End: 02-02-2024 Topiramate [Mass/volume] in Serum or Plasma Topiramate level Lab Routine 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) Expected: 02/01/2023 (Approximate), Expires: 02/02/2024 [facility] Service Area Work Phone: Comment on above: Expected: 02/01/2023 (Approximate), Expires: 02/02/2024 Start: 01-11-2023 [facility] Start: 01-11-2023 Bacteria identified in Urine by Culture [facility] [facility] Start: 12-16-2022 Influenza vaccination Influenza Vacc ine (#1) [facility] Start: 08-31-2022 FUV, Provider: Sloan Mohr, Status: Pen, Time: 12:00 PM FUV, Provider: Sloan Mohr, Status: Pen, Time: 12:00 PM TD-Uxtecgdpha-Ehsdt logy-Admin RBC 585 Work Phone: Start: 06-29-2022 FUV, Provider: Sloan Mohr, Status: Pen, Time: 3:00 PM FUV, Provider: Sloan Mohr, Status: Pen, Time: 3:00 PM XE-Qqfizrokow-Ppolc dipti H DO Work Phone: Start: 01-05-2022 FUV, Provider: Sloan Mohr, Status: Pen, Time: 3:20 PM FUV, Provider: Sloan Mohr, Status: Pen, Time: 3:20 PM BI-Kgrhrrtrfc-Mufsc rbrook 220 Work Phone: Start: 11-14-2021 Hepatitis C screening Hepatitis C [facility] Start: 06-30-2021 FUV, Provider: Sloan Mohr, Status: Pen, Time: 3:40 PM FUV, Provider: Sloan Mohr, Status: Pen, Time: 3:40 PM KY-Ygcldjztdw-Twtvm ands Work Phone: Start: 12-30-2020 FUV, Provider: Sloan Mohr, Status: Pen, Time: 12:00 PM FUV, Provider: Sloan Mohr, Status: Pen, Time: 12:00 PM XM-Erpqfqcaxj-Atqsf logy-Admin RBC 585 Work Phone: Start: 12-23-2014 DTaP/Tdap/Td Vaccine s (2 - Td or Tdap) DTaP/Tdap/Td Vaccines (2 - Td or Tdap) [facility] Start: 11-14-2006 Well Child Visit (WC V) - Annual Well Child Visit (WCV) - Annual [facility] Start: 11-14-2004 MMR Vaccines (1 of 1 - Standard series) MMR Vaccines (1 of 1 - Standard series) [facility] Start: 11-14-2004 Varicella vaccination Varicell a Vaccines (1 of 2 - 2-dose childhood series) [facility] Start: 07-15-2004 Application of denta l fluoride varnish Fluoride Varnish [facility] Start: 05-17-2004 COVID-19 Vaccine (#1) COVID-19 Vacci ne (#1) [facility] Start: 2003 Hearing Screening (#1) Hearing Scree lele (#1) [facility] Start: 2003 Hepatitis B Vaccines (1 of 3 - 3-dose series) Hepatitis B Vaccines (1 of 3 - 3-dose series) [facility] Start: 2003 Lipid panel Lipid Panel [facility] Bacteria identified in Urine by Culture [facility] Casts [Type] in Urin e sediment by Light microscopy [facility] Crystals [type] in Urine sediment by Light microscopy [facility] HIV 1+2 Ab+HIV1 p24 Ag [Presence] in Serum or Plasma by Immunoassay [facility] Patient Education [facility] Work Phone: Patient referral [facility] Work Phone: Reagin Ab [Presence] in Serum by RPR [facility] VW-Dffsbxgoif-N irel ands Work Phone: Amphetamine-Dext roamphe tamine 20 MG Oral Tablet Take 1 tablet twice daily Ordered: 01-Jun-2019 Active JL-Tquywahnnq-Itumy ands Work Phone: Amphetamine-Dext roamphe tamine 20 MG Oral Tablet Take 1 tablet twice daily Ordered: 30-Jun-2019 Active AL-Dgwabkziin-Xqgzn ands Work Phone: Amphetamine-Dext roamphe tamine 20 MG Oral Tablet Take 1 tablet twice daily Ordered: 30-Jul-2019 Active VC-Faautjjeks-Asxmy log-Admin RBC 585 Work Phone: Amphetamine-Dext roamphe tamine 20 MG Oral Tablet Take 1 tablet twice daily Ordered: 28-Aug-2019 Active US-Vdzlkwkoym-Nyqvw log-Admin [facility] 585 Work Phone: Amphetamine-Dext roamphe tamine 20 MG Oral Tablet Take 1 tablet twice daily Ordered: 27-Sep-2019 Active RL-Ofgjnrkuts-Ytwmh log-Admin [facility] 585 Work Phone: NEGATED: Highlighted row has been ruled out! Planned Goals not documented SC-Qtpgpeowlw-Vmpji ands Work Phone: Immunizations Immunization Date Immunization Notes Care Provider Meredith art 07-25-2023 tetanus toxoid, reduced diphtheria toxoid, and acellular pertussis vaccine, adsorbed Services [facility] Work Phone: [facility] 01-09-2017 influenza virus vaccine, unspecified formulation Sloan Mohr MD Work Phone: [facility] Work Phone: Payers Date Payer Category Payer Self-pay [id number] 2022 Medicaid [id number] 2022 Medicaid [employer] [place] [id number] 2022-Present [address] [place] [address] [id number] 2022 Unknown 2003 Unknown [id number] 2.16.840.1.226812.3.579.2.1258 2003 Unknown [id number] 2.16.840.1.907510.3.579.2.1258 2003 Unknown [id number] 2.16.840.1.767360.3.579.2.1258 2003 Unknown [id number] 2.16.840.1.669048.3.579.2.1258 2003 Unknown [id number] 2.16.840.1.785804.3.579.2.1258 2003 Unknown [id number] 2.16.840.1.181337.3.579.2.1258 2003 Unknown [id number] 2.16.840.1.213926.3.579.2.1258 2003 Unknown [id number] 2.16.840.1.342062.3.579.2.1258 2003 Unknown [id number] 2.16.840.1.159110.3.579.2.1258 2003 Unknown [id number] 2.16.840.1.858676.3.579.2.1258 2003 Unknown [id number] 2.16.840.1.541427.3.579.2.1258 2003 Unknown [id number] 2.16.840.1.536974.3.579.2.1258 2003 Unknown [id number] 2.16.840.1.484250.3.579.2.1259 1993 Unknown [id number] 2.16.840.1.355636.3.579.2.593 1993 Unknown [id number] 2.16.840.1.350661.3.579.2.593 1983 Unknown [id number] 2.16.840.1.880003.3.579.2.356 1959 Unknown [id number] Unknown Regular Auto/Liability [id number] Unknown [id number] 2.16.840.1.467386.3.579.2.531 Unknown [id number] 2.16.840.1.218757.3.579.2.531 Unknown [id number] 2.16.840.1.401578.3.579.2.531 Unknown [id number] 2.16.840.1.449083.3.579.2.531 Unknown [id number] 2.16.840.1.618973.3.579.2.531 Unknown [id number] 2.16.840.1.454604.3.579.2.531 Unknown [id number] 2.16.840.1.231535.3.579.2.531 Unknown [id number] 2.16.840.1.919383.3.579.2.531 Unknown [id number] 2.16.840.1.914452.3.579.2.531 Unknown [id number] 2.16.840.1.722111.3.579.2.531 Unknown [id number] 2.16.840.1.512392.3.579.2.531 Social History Date Type Detail Facility Assertion Unknown if ever smoked MG-Pe diatrics-Firela nds Work Phone: Start: 04-19-2023 Lives with parents Lives with parent s EJ-Oqwveqsdis-Knferl ogy-Admin [facility] 585 Work Phone: Start: 01-22-2022 End: 07-28-2023 Tobacco smoking status NHIS Never smoked tobacco (finding) [facility] Start: 2005 Sex Assigned At Female [facility] Start: 01-11-2023 End: 01-12-2023 Tobacco smoking status NHIS Smoker (finding) [facility] Start: 12-05-2022 End: 03-04-2023 Tobacco use and exposure Smokeless tobacco non-user [facility] Work Phone: Start: 2003 Sex Assigned At Not on file [facility] Work Phone: Start: 04-19-2023 Gender identity Not on file [facility] Work Phone: Start: 01-22-2023 End: 02-01-2023 Exposure to SARS-CoV-2 (event) Not sure [facility] Start: 04-19-2023 Alcohol intake Ex-drinker (finding) [facility] Start: 12-05-2022 Alcohol Comment caffeine: occasional ly [facility] Start: 10-30-2022 [facility] NEGATED: Highlighted row [facility] Goals Date Patient Goal Desired Activity /State Functional Status Date Assessment Result Facility 07-25-2023 Functional status Patient at Baseline [facility] Work Phone: NEGATED: Highlighted row Functional performance Functional status health issues are not documented Disease KZ-Sgliqreutz-Lwyaaz nds Work Phone: Mental Status Date Assessment Result Facility 07-25-2023 Cognitive function Cognitive Sta tus Patient at Baseline [facility] Work Phone: NEGATED: Highlighted row Cognitive function [Interpretation] Cognitive status health issues are not documented Disease CO-Eoieirrspn-Fwlpby nds Work Phone: Clinical Notes 12-31-2015 to 07-24-2023 Note Date & Type Note Facility 07-24-2023 Progress note Note Date/Time July 24, 2023 10:1 4am [facility] [address] [place] [address] ART EDUCATOR Progress Note Signed Patient: Rupal Rubio MR#: [id number] : 2005 Acct:[id number] Age/Sex: 17 / F Adm Date: 4 Loc: 3S Room: 4B0414-0 Type: ADM IN Attending Dr: Lena Bales MD Copies to: ~ Date of Service: 07/24/2023 OB - PN: Subj Subjective Post Delivery Day #: Day 1 Interval history: Patient doing well, s/p PPD #1. Bleeding decreased, pain well-controlled. Voiding without difficulty. OB - PN: Obj Exam Constitutional Constitutional: no acute distress Respiratory Exam Respiratory: Absent accessory muscle use Cardiovascular Exam Cardiovascular: Present RRR Abdominal Exam Abdominal: Present soft; Absent tenderness, distended or rebound Fundus: Present firm Extremities Exam Extremities: Present full ROM; Absent cyanosis Urinary Catheter Management Urethral (Anaya): Cath placed during this visit: no OB - PN: Obj Data Labs 07/24/23 05:53 Labs: 07/24/23 05:53: Uncorrected WBC Count 12.4 H, MCV 86.6, MCH 28.8, MCHC 33.3, RDW14.2, Plt Count 169, MPV 11.3 H, Neut % (Auto) 71.0, Lymph % (Auto) 21.6, Faulkner %(Auto) 6.5, Eos % (Auto) 0.6, Baso % (Auto) 0.3, Nucleat RBC Rel Count 0.1, Neut# (Auto) 8.8 H, Lymph # (Auto) 2.7, Faulkner # (Auto) 0.8, Eos # (Auto) 0.1, Baso # (Auto) 0.0, Platelet Estimate Normal, Large Platelets Slight, Plt Morphology Comment N/A, RBC Morphology Normal Assessment/Plan Assessment (1) Status post vaginal delivery: Plan Patient doing well s/p . Plan for discharge home tomorrow. Plan day: 1 Vaginal delivery plan (if applicable): routine care Documented By: Linn Penny DO 07/24/23 10 12 Signed By: <Electronically signed by Linn Penny, > 07/24/23 [facility] Work Phone: 1(749) 797-693804-07-2024 [facility] History of Present illness Narrative* Chuck Monroe, - 05/25/2023 1:00 PM EST 31w4d is complicated by: -ADHD (stopped adderall) -Seizures (last seixure >7yrs. Ago) was weened off topamax 1 month ago by neurologist....Folic acid 4mg daily -A+, Immune -EDC 07-23-23 s/b 6 week U/S -Anxiety, Buspar 5mg BID, O99.34x - Qnatal neg (XY) -Qherit-neg. - Glucose 71 Hemo 13.0 Hematocrit 38.9 -U/S 03-13-23 EFW 1lb 0oz. (76%), AC 70th percentile, BEBA and anatomy normal, cervical length 31 mm. -U/S 05-10-23 EFW 3lb 4oz. (51%), AC 53% BEBA 15.1 cm. Anatomy normal. Chief Complaint Patient presents with Routine Visit 31 weeks 4 days. Glucose. Neg. Protein. Neg. Pt feeling well. Movement is good. Current Outpatient Medications on File Prior to Visit Medication Sig Dispense Refill Ferrous Bisglycinate Chelate 28 MG capsule 1 tablet albuterol HFA 90 mcg/act inhaler Inhale 2 puffs every 6 (six) hours if needed. busPIRone (Buspar) 5 MG tablet take 1 tablet by mouth IN THE MORNING and 1 tablet at bedtime 60 tablet 2 folic acid (Folvite) 1 MG tablet Take 4 tablets (4 mg) by mouth in the morning. 120 tablet 11 MV-Min-Fe Fum-FA-DHA ( 1 PO) Take by mouth. topiramate (Topamax) 25 MG tablet Take 25 mg by mouth in the morning. No current facility-administered medications on file prior to visit. ICD-10-CM 1. 31 weeks gestation of Z3A.31 POCT URINALYSIS 4 DIPSTICK 2. History of marijuana use F12.91 3. Attention deficit hyperactivity disorder (ADHD), unspecified ADHD type (CMS/HCC) F90.9 4. History of seizures Z87.898 5. Anxiety during , antepartum, third trimester O99.343 F41.9 6. care, first in third trimester Z34.03 7. Excess weight gain in , third trimester O26.03 She is doing well. She was having some cramping and back pain on Monday and presented to labor anddelivery. Her workup was negative there including her urinalysis and fibronectin. She is denying any leaking or bleeding or abdominal tightening today. The baby's been active. Her 1 hour Glucola was normal as was her hemoglobin. We discussed labor precautions. I am going to see her back in 2 weeks. Chuck Monroe DO documented in this encounterCox [id number] History of Present illness Narrative* Sloan Mohr MD - 02/01/2023 1:40 PM EDT Subjective Rupal Rubio is a 17 y.o. woman with epilepsy. HPI Rupal is a 17 year old young woman with ADHD and epilepsy. She is currently on Topamax 75 mg AM [id number] mg PM. Last seizure was over 6 years ago. EEG in January 2018 showed generalized sharp waves consistent with an epilepsy tendency so medication was continued. Rupal has a prescription for Adderall 20 mg BID (q6AM and after school)for ADHD. She takes it as needed. She attends [employer] (on line). 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 Review of Systems A review of systems is positive for at 15 weeks. ultrasound is reportedly normal. She takes vitamins and folic acid. Medications were not used consistently early in the . Objective Neurological Exam Mental Status Awake and alert. Cranial Nerves CN III, IV, : Extraocular movements intact bilaterally. CN VII: Full and symmetric facial movement. Motor No abnormal involuntary movements. Strength is 5/5 throughout all four extremities. Gait Casual gait is normal including stance, stride, and arm swing. Physical Exam Constitutional: General: She is awake. Eyes: Extraocular Movements: Extraocular movements intact. Pulmonary: Effort: Pulmonary effort is normal. Abdominal: Palpations: Abdomen is soft. Neurological: Mental Status: She is alert. Motor: Motor strength is normal. Assessment/Plan Rupal has no seizures for years. She is 15 weeks . Stop Adderall since it is not essential. Continue topiramate for seizure control. Teratogenicity was discussed. Check monthly levels to keepdose stable. Continue with vitamins. Call monthly to report status ([phone]). Follow up in 3 months. [facility] Work Phone: 1(812) 996-694210-18-2023 Instructions* Patient Instructions* Sloan Mohr MD - 02/01/2023 1:40 PM EDT Rupal has no seizures for years. She is 15 weeks . Stop Adderall since it is not essential. Continue topiramate for seizure control. Teratogenicity was discussed. Check monthly levels to keepdose stable. Call monthly to report status ([phone]). Follow up in 3 months. [facility] Work Phone: 1(128) 727-278310-01-2017 History of Present illness Narrative* Rupal is a 16 year old young woman with ADHD and epilepsy. She is currently on Topamax 75 mg AM [id number] mg PM. Last seizure was over 5 years ago. EEG in January 2018 showed generalized sharp waves consistent with an epilepsy tendency so medication was continued. * Rupal is on Adderall 20 mg BID (q6AM and after school)for ADHD. She takes medication for school andwork days only.. She is in 12th grade with an IEP and plans to go to college ([employer] or an online education for [employer] supervisor carton and can supply). 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 She takes with some effect at times.Sleep is likely affected by her work schedule (up to 70 hours per week). MI-Yexkgwqgjd-Pjbphsur DO Work Phone: 1([phone]) 835-518009-15-2016 History of Present illness Narrative* Rupal is a 15 year old young woman with ADHD and epilepsy. She is currently on Topamax 75 mg AM [id number] mg PM. Last seizure was over 5 years ago. EEG in January 2018 showed generalized sharp waves consistent with an epilepsy tendency so medication was continued. * Rupal is on Adderall 20 mg BID q6AM and after school for ADHD, the latter dose for homework and activities that require attention.. She is in 11th grade with an IEP and may go to 12th grade since shehas a few classes to graduate. * Rupal sleeps well. She takes melatonin 3 mg as needed and usually sleeps through the night. 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 HN-Brinaxsukf-Cvbnxsgoe Work Phone: Evaluation noteNo assessment information available [facility] Work Phone: Evaluation note* Diagnosis 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)- Primary documented in this encounter [facility] Work Phone: Evaluation note* Diagnosis 31 weeks gestation of - Primary History of marijuana use Attention deficit hyperactivity disorder (ADHD), unspecified ADHD type (CMS/HCC) History of seizures Anxiety during , antepartum, third trimester care, first in third trimester documented in this encounter [facility] HealthcareEvaluation note* Diagnosis Onset Date Resolution Status Status post vaginal delivery acute [facility] Work Phone: Hospital Discharge instructions Additional Instructions Follow-up with your primary care doctor Return to ED if develop worsening symptoms or concernsMer[facility] Work Phone: Hospital Discharge instructions Additional Instructions DISCHARGE INSTRUCTIONS FOR ANTEPARTUM RETURN TO HOSPITAL IF: -Fluid gushing or leaking from vagina -Bleeding from vagina -In labor with regular and/or painful contractions -Decreased movement CALL LABOR AND DELIVERY ([phone]) IF: -Swollen face, hands, or legs -Spots before your eyes or your eyes blur -Dizziness or bad headache -Sudden chills or fevers -Pain or burning when you urinate -Continuous severe pain in your abdomen -Unable to keep liquids down for 24 hours -Abdominal/menstrual-like cramping- may be constant or come and go; may be with or without diarrhea. -Low, dull backache- constant or comes and goes -Pressure- feels like the baby is pushing down or feels heavy -Increase or change in vaginal discharge- pink or bloody, watery, mucous like -Abdomen tightens -Uterine contractions- 10 minutes apart or closer; may be painless -Fever- 100 [address] or [address] [facility] Work Phone: Hospital Discharge instructions Additional Instructions Take Motrin Tylenol as needed for pain. Take Keflex as prescribed for urinary tract infection. Increase your intake of fluids and rest. If you develop severe worsening vaginal bleeding or passing out with vaginal bleeding or any fevers or chills return to emergency department. Otherwise follow-up with Dr. monroe for ongoing management.[facility] Work Phone: Summary Purpose Family History No Family History Records Found Grandmother Name Dates Details Family history of seizures(V 19.8, Z84.89) Status:Active Sibling Name Dates Details Family history of seizures(V 19.8, Z84.89) Status:Active Mother Name Dates Details Family history of seizures(V 19.8, Z84.89) Status:Active Father Name Dates Details Family history of seizures(V 19.8, Z84.89) Status:Active Grandmother Name Dates Details Family history of seizures(V 19.8, Z84.89) Status:Active Sibling Name Dates Details Family history of seizures(V 19.8, Z84.89) Status:Active Mother Name Dates Details Family history of seizures(V 19.8, Z84.89) Status:Active Father Name Dates Details Family history of seizures(V 19.8, Z84.89) Status:Active Grandmother Name Dates Details Family history of seizures(V 19.8, Z84.89) Status:Active Sibling Name Dates Details Family history of seizures(V 19.8, Z84.89) Status:Active Mother Name Dates Details Family history of seizures(V 19.8, Z84.89) Status:Active Father Name Dates Details Family history of seizures(V 19.8, Z84.89) Status:Active Grandmother Name Dates Details Family history of seizures(V 19.8, Z84.89) Status:Active Sibling Name Dates Details Family history of seizures(V 19.8, Z84.89) Status:Active Mother Name Dates Details Family history of seizures(V 19.8, Z84.89) Status:Active Father Name Dates Details Family history of seizures(V 19.8, Z84.89) Status:Active Unknown Family Member Name Dates Details Family history of seizures: Mother, Father, Sibling, Maternal Grandmother(V19.8, Z84.89) Status:Active Unknown Family Member Name Dates Details Family history of seizures: Mother, Father, Sibling, Maternal Grandmother(V19.8, Z84.89) Status:Active Unknown Family Member Name Dates Details Family history of seizures: Mother, Father, Sibling, Maternal Grandmother(V19.8, Z84.89) Status:Active Unknown Family Member Name Dates Details Family history of seizures: Mother, Father, Sibling, Maternal Grandmother(V19.8, Z84.89) Status:Active Unknown Family Member Name Dates Details Family history of seizures: Mother, Father, Sibling, Maternal Grandmother(V19.8, Z84.89) Status:Active Unknown Family Member Name Dates Details Family history of seizures: Mother, Father, Sibling, Maternal Grandmother(V19.8, Z84.89) Status:Active Unknown Family Member Name Dates Details Family history of seizures: Mother, Father, Sibling, Maternal Grandmother(V19.8, Z84.89) Status:Active Relationship Condition Age at Onset Recorded Date/T roberto Not Specified Pulmonary emphysema Unknown family member Malignant neoplasm Unknown Not Specified Malignant neoplasm of ovary Unknown Not Specified Heart disease Unknown Not Specified Myocardial infarction Unknown Not Specified Malignant neoplasm of breast Unknown Not Specified Chronic obstructive pulmonary disease Un known Not Specified Mature cystic teratoma Unknown Not Specified History of cervical biopsy Unknown Not Specified Epilepsy Unknown natural son Epilepsy Unknown natural son Heart murmur Unknown family member Epilepsy Unknown Advance Directives No Advanced Directives Records Found Advance Directive Response Recorded Date/ Time Advance Directives No February 01, 2018 2:39pm Advance Directive Response Recorded Date/ Time Advance Directives No February 01, 2018 1:39pm Chief Complaint * Seizure and ADHD FU * Accompanied by mother. * Seizure and ADHD FU * Accompanied by mother. Chief Complaint and Reason for Visit Chief Complaint burning when urinati ng Chief Complaint Missed menses Screen ing for STD (sexually transmit Chief Complaint Dizziness,Fever,12 w k IUP Chief Complaint 31 wks cramping, blo od in stool, back pain Chief Complaint 31 wks cramping, blo od in stool, back pain 33 wks abd pain Chief Complaint 31 wks cramping, blo od in stool, back pain 33 wks abd pain 35 WK mucus Plug 36 wks leaking fluid Chief Complaint 31 wks cramping, blo od in stool, back pain 33 wks abd pain 35 WK mucus Plug z36.85 36 wks leaking fluid 37 wks contractions Chief Complaint 31 wks cramping, blo od in stool, back pain 33 wks abd pain 35 WK mucus Plug z36.85 36 wks leaking fluid 37 wks contractions 39 wk IUP Contractions/leakage Chief Complaint 31 wks cramping, blo od in stool, back pain 33 wks abd pain 35 WK mucus Plug z36.85 36 wks leaking fluid 37 wks contractions 39 wk IUP Contractions/leakage IUP (Intrauterine ) Reason for Visit Status post vaginal delivery Chief Complaint 31 wks cramping, blo od in stool, back pain 33 wks abd pain 35 WK mucus Plug z36.85 36 wks leaking fluid 37 wks contractions 39 wk IUP Contractions/leakage IUP (Intrauterine ) 4day cramps Additional Source Comments INFORMATION SOURCE (unrecogn ized section and content) DATE CREATED AUTHOR 03/25/2018 [facility] DATE CREATED AUTHOR AUTHOR'S ORGANIZ ATION 03/08/[address] [facility] DATE CREATED AUTHOR AUTHOR'S ORGANIZ ATION 01/16/2022 [facility] DATE CREATED AUTHOR AUTHOR'S ORGANIZ ATION 07/16/2022 [employer] DATE CREATED AUTHOR AUTHOR'S ORGANIZ ATION 08/09/2023 [facility] DATE CREATED AUTHOR AUTHOR'S ORGANIZ ATION 08/22/2023 [facility] EPIC Care Teams (unrecognized sec tion and content) Team Status: Inactive Member Role Status [facility] Primary Care Provider Active Faizan Quintero DO Emergency Provider Active Team Status: Active Member Role Status [facility] Primary Care Provider Active Team Status: Inactive Member Role Status Dates Alyson Cuello APRN CIRCULATOR-C Attending Provider Active Team Status: Inactive Member Role Status [facility] Primary Care Provider Active Jadon Shaw MD Emergency Provider Active Appraiser Relationship Specialty Start Date End Date Vernell Mckeon APRN-SUPERVISOR [employer] [address] [place] [address] PCP - General 04/17/12 [place] [id number] [address] Department of Pediatrics-Neurology [place] [id number] PCP - [facility] Medicaid PCP 07/16/22 Team Status: Inactive Member Role Status Dates Services [facility] Primary Care Provider Active Start: May 23, 2023 End: May 24, 2023 Chuck Monroe DO Attending Provider Active Sta rt: May 23, 2023 End: May 24, 2023 Appraiser Relationship Specialty Start Date End Date Unallocated, [place] Provider [address] [place] [address] PCP - General 12/05/22 Appraiser Relationship Specialty Start Date End Date Unallocated, [place] Provider [address] [place] [address] PCP - General 12/05/22 Appraiser Relationship Specialty Start Date End Date Unallocated, [place] Provider [address] [place] [address] PCP - General 12/05/22 Team Status: Inactive Member Role Status Dates Services [facility] Primary Care Provider Active Start: June 05, 2023 End: June 05, 2023 Chuck Monroe DO Attending Provider Active Sta rt: June 05, 2023 End: June 05, 2023 Team Status: Inactive Member Role Status Dates Services [facility] Primary Care Provider Active Start: June 20, 2023 End: June 21, 2023 Chuck Monroe DO Attending Provider Active Sta rt: June 20, 2023 End: June 21, 2023 Team Status: Inactive Member Role Status Dates Chuck Monroe DO Attending Provider Active Sta rt: June 28, 2023 End: June 28, 2023 Team Status: Inactive Member Role Status Dates Services [facility] Primary Care Provider Active Start: June 28, 2023 End: June 28, 2023 Carlos Buckley MD Attending Provider Active Star t: June 28, 2023 End: June 28, 2023 Team Status: Inactive Member Role Status Dates Services [facility] Primary Care Provider Active Start: July 07, 2023 End: July 07, 2023 Lena Bales MD Attending Provider Active St art: July 07, 2023 End: July 07, 2023 Team Status: Inactive Member Role Status Dates Services [facility] Primary Care Provider Active Start: July 20, 2023 End: July 20, 2023 Lena Bales MD Attending Provider Active St art: July 20, 2023 End: July 20, 2023 Team Status: Inactive Member Role Status Dates [facility] Primary Care Provider Active Start: July 23, 2023 End: July 25, 2023 Lena Bales MD Admit Provider, Atte nding Provider Active Start: July 23, 2023 End: July 25, 2023 Team Status: Inactive Member Role Status Dates Services [facility] Primary Care Provider Active Start: July 28, 2023 End: July 28, 2023 Akin Lopez , DO Emergency Provider Active Start: July 28, 2023 End: July 28, 2023 Goals (unrecognized section and content) Goals may be documented in a n alternate sectionGoals may be documented in an alternate sectionGoals may be documented in an alternate sectionGoals may be documented in an alternate sectionGoals may be documented in an alternate sectionGoals may be documented in an alternate sectionGoals may be documented in an alternate sectionGoals may be documented in an alternate section Reason for Visit (unrecogniz ed section and content) Reason Comments Follow-up 6 month fuv Reason Comments Routine Visit 31 weeks 4 days. Glucose. Neg. Protein. Neg. Pt feeling well. Movement is good. FOR RECORDS PERTAINING TO PATIENTS WHO ARE OR HAVE BEEN ENROLLED IN A CHEMICAL DEPENDENCY/SUBSTANCEABUSE PROGRAM, SOME INFORMATION MAY BE OMITTED. This clinical summary was aggregated from multiple sources. Caution should be exercised in using it in the provision of clinical care. This summary normalizes information from multiple sources, and as a consequence, information in this document may materially change the coding, format and clinical context of patient data. In addition, data may be omitted in some cases. CLINICAL DECISIONS SHOULD BE BASED ON THE PRIMARY CLINICAL RECORDS. [employer] [facility]. provides no warranty or guarantee of the accuracy or completeness of information in this document.
[2023-09-30 14:48] VITALS: BP 147/83; PULSE 118; O2SAT 99; BMI 27.8
[2023-09-30 14:56] VITALS: O2SAT 99
[2023-09-30] MEDS: ACETAMINOPHEN 325 MG TABLET 650 MG PO (15:17)
[2023-09-30] MEDS: KETOROLAC TROMETHAMINE 30 MG/ML VIAL 15 MG IM (15:18)
[2023-09-30 15:23] VITALS: PULSE 67; O2SAT 98
--- NOTE | 2023-09-30 16:05 | ED_ITS ---
HPI HPI - General Adult General Chief complaint: Upper Respiratory Infection Stated complaint: FLU LIKE SYMPTOMS Time Seen by Provider: 09/30/23 14:55 Source: patient Mode of arrival: walk-in Limitations: no limitations History of Present Illness HPI narrative: 17-year-old female to the emergency department with chief complaint of sore throat, nasal congestion, fever. Symptoms been ongoing for several days. Worsened today. She reports she is able to swallow without difficulty. She is currently 2 months and breast-feeding. Concerned she has strep throat. Related Data Home Medications ?Medication ?Instructions ?Recorded ?Confirmed buspirone 5 mg tablet mg 02/16/23 cephalexin 500 mg capsule mg 02/16/23 dextroamphetamine-amphetamine 20 02/16/23 mg tablet folic acid 1 mg tablet 02/16/23 Previous Rx's ?Medication ?Instructions ?Recorded amoxicillin 500 mg capsule 500 mg PO BID 10 days #20 caps 09/30/23 Allergies Allergy/AdvReac Type Severity Reaction Status Date / Time No Known Drug Allergies Allergy Verified 02/16/23 00:16 Opioid HPI Opioid Management Most Recent Opioid Data: Last Pain Scale 7 09/30/23 15:18 Last MAR Pain Assessment 09/30/23 15:18 Review of Systems ROS Status of ROS 10 or more systems reviewed and unremark able except as noted in history and below [facility] Social History Smoking status: Never smoker Exam Narrative Exam Narrative: VITALS: I have reviewed the triage vital signs. GENERAL: Well developed, well appearing adult in no acute distress. NEURO: Alert and oriented. Moves all extremities. Face is symmetric and expressive. EYES: PERRL. No scleral icterus or conjunctival injection. No discharge. HENT: Normocephalic, atraumatic. Hearing is grossly intact. Nares grossly patent and without discharge. Mucous membranes moist. TMs clear bilaterally. Poste rior oropharynx erythematous, there is tonsillar plaques. NECK: No JVD. Patient moves neck without restriction. CARDIO: Rhythm regular. Normal rate. No murmur, rub, or gallop. Pulses equal bilaterally in the upper and lower extremity. No lower extremity edema. PULM: Lungs clear to auscultation in all lee. No wheezes, rales, or rhonchi. No conversational dyspnea. No splinting, stridor, or accessory muscle use. GI/: Abdomen is soft and non-tender. Normoactive bowel sounds. EXTREMITIES: Symmetric muscle bulk. No joint swelling. No clubbing, cyanosis, or deformity. SKIN: Warm and dry. Normal turgor. No rash or lesions appreciated. PSYCH: Mood, affect, and interaction is appropriate to the setting. Constitutional Vital Signs, click to edit/add: Last Vital Signs Pulse 67 09/30/23 15:23 Resp 18 09/30/23 15:23 BP 147/83 H 09/30/23 14:48 Pulse Ox 98 09/30/23 15:23 O2 Del Method Room Air 09/30/23 15:23 Course Vital Signs Vital signs: Vital Signs Pulse Rate 118 H 09/30/23 14:48 Respiratory Rate 18 09/30/23 14:48 Blood Pressure 147/83 H 09/30/23 14:48 Pulse Oximetry 99 09/30/23 14:48 Oxygen Delivery Method Room Air 09/30/23 14:48 Pulse Rate 67 09/30/23 15:23 Respiratory Rate 18 09/30/23 15:23 Blood Pressure 147/83 H 09/30/23 14:48 Pulse Oximetry 98 09/30/23 15:23 Oxygen Delivery Method Room Air 09/30/23 15:23 Medical Decision Making MDM Narrative Medical decision making narrative: Well-appearing 17-year-old female to the emergency department chief complaint of sore throat and fever. Vital stable, the patient is afebrile. No evidence of peritonsillar abscess or deep space infection. She appears to have uncomplicated pharyngitis. Moderate risk for strep. Will just treat at this time. Amoxicillin prescribed. Toradol was given for her aches and pains at her request. Tylenol was also given. She will continue to treat with Tylenol at home for fever. Return precautions were discussed. All questions were answered. The patient was discharged home Medical Records Medical records reviewed: Yes I reviewed the patient's medical records Discharge Plan Discharge Stand Alone Forms: Portal Instructions Chief Complaint: Upper Respiratory Infection Clinical Impression: Pharyngitis, Fever Patient Disposition: Home, Self-Care Time of Disposition Decision: 15:03 Condition: Good Mode of Transportation: Private Vehicle Prescriptions / Home Meds: New amoxicillin 500 mg capsule 500 mg PO BID 10 Days Qty: 20 0RF No Action buspirone 5 mg tablet cephalexin 500 mg capsule dextroamphetamine-amphetamine 20 mg tablet folic acid 1 mg tablet Print Language: [place] Instructions: Pharyngitis (ED), Fever in Adults (ED) Additional Instructions: Call the office of your primary care doctor to arrange for follow-up within the above-stated timeframe. Follow-up with your primary care doctor about this ED visit. You should review your labs, imaging, and diagnoses from this ED visit with your primary care physician. There may be non-emergent findings that need further evaluation. If you were prescribed medications you should discuss possible side-effects and drug interactions with your pharmacist. Call 911 or go to the nearest Emergency Department if you develop any new or worsening symptoms. Referrals: Physician,Non-Staff, MD [Primary Care Provider] - 1 week (Follow-up with your doctor within the next week to ensure your symptoms are improved. Should you worsen or not improve return to the ED for repeat evaluation. Use Tylenol or ibuprofen at home for fever. Take antibiotic as prescribed.) Discharge Date/Time: 09/30/23 15:23
== END 2023-09-30 15:23 | disposition home or self-care (01) ==
PROVIDERS: Emergency Provider Student in an Organized Health Care Education/Training Program
DX: R50.9 Fever, unspecified (principal); J02.9 Acute pharyngitis, unspecified
CPT/HCPCS: 96372; 99284; J1885